=== PATIENT | female | born 1935 | race Caucasian/White ===

== ENCOUNTER 2020-06-28 07:35 | Inpatient (IN) | payer MEDICARE, OTHER, SELFPAY ==
[2020-06-28] VITALS (14 sets, daily range): BP systolic 111–183; BP diastolic 68–131; PULSE 78–120; RESP 18–20; TEMP 36.8–37.4; O2SAT 92–98; BMI 27.1
[2020-06-28] MEDS: Morphine Sulfate 2 MG/ML CARTRIDGE IVPUSH ×2 (08:32→09:39)
[2020-06-28 08:38] LABS: Basophils Absolute Auto 0.1 X10*3/uL (0.0-0.2); Basophils Percent Auto 0.5 % (0-2); Eosinophils Absolute Auto 0.1 X10*3/uL (0.0-0.4); Eosinophils Percent Auto 0.7 % (0-4); Hemoglobin 13.9 g/dl (12.0-16.0); Imm Gran Pct Auto 0.8 % (0.0-0.4); Lymphocytes Absolute Auto 1.3 X10*3/uL (1.2-4.9); Lymphocytes Percent Auto 10.6 % (20-40); MANUAL DIFF FLAG NO; Mean Corpuscular HGB Conc 33.9 g/dl (31.0-35.0); Mean Corpuscular Hemoglobin 31.7 pg (27.0-33.0); Mean Corpuscular Volume 93.4 fL (80-98); Monocytes Percent Auto 8.2 % (2-11); Neutrophils Absolute Auto 9.4 X10*3/uL (2.0-8.3); Neutrophils Percent Auto 79.2 % (45-73); Platelet Count 192 X10*3/uL (160-400); Red Blood Count 4.39 X10*6/uL (4.20-5.50); Red Cell Distribution Width 12.8 % (11.0-16.0); White Blood Count 11.9 X10*3/uL (4.8-10.8)
--- NOTE | 2020-06-28 08:47 | ED.ABDPAIN ---
HPI - Abdominal Pain General Chief Complaint: Abdominal Pain Stated Complaint: abd pain Time Seen by Provider: 06/28/20 08:09 Source: patient and EMS Mode of arrival: EMS Limitations: no limitations History of Present Illness HPI narrative: 85 y/o female with history of COPD, asthma, DM, diverticulitis, UTI's, CAD with unstable angina, hx hip fracutre, s/p cholecystectomy, s/p hysterectomy who presents with acute onset of right sided abdominal pain and flank pain that started when she woke up this morning. It is sharp pain that radiates throughout her right side. She is nauseated but has not vomited. She denies fever, chills, diarrhea, sick contacts, urinary symptoms. She called EMS and was given Zofran en route with good effect. She states the pain went away briefly but is now back. MD elicited complaint: abdominal pain and flank pain Pertinent past history: diverticulitis and past UTI Onset (ago): hour(s) (2) Pain Consistency: intermittent Location: RUQ, RLQ and R flank Severity: moderate Quality: sharp Radiation: R flank Migration to: no migration Exacerbating factors: nothing Relieving factors: nothing Associated symptoms: nausea Treatments prior to arrival: other (zofran ) Related Data Home Medications Medication Instructions Recorded Confirmed hydrocodone-acetaminophen 1 tab PO Q6H PRN 06/28/20 06/28/20 lisinopril 40 mg PO DAILY 06/28/20 06/28/20 metformin 250 mg PO DAILY 06/28/20 06/28/20 multivitamin 1 tab PO DAILY 06/28/20 06/28/20 omega [id number]-fish oil [Fish Oil] 1 cap PO DAILY 06/28/20 06/28/20 omeprazole 20 mg PO DAILY 06/28/20 06/28/20 raloxifene 60 mg PO DAILY 06/28/20 06/28/20 rosuvastatin 5 mg PO BEDTIME 06/28/20 06/28/20 sotalol 80 mg PO BID 06/28/20 06/28/20 Allergies Allergy/AdvReac Type Severity Reaction Status Date / Time azithromycin [From ZITHROMAX] Allergy Unknown THROAT RASH Verified 06/28/20 11:47 levofloxacin [From LEVAQUIN] Allergy Unknown UNKNOWN Verified 06/28/20 11:47 meperidine [Demerol] Allergy Unknown Palpitation Verified 06/28/20 11:47 s niacin [NIACIN] Allergy Unknown HIVES Verified 06/28/20 11:47 oxycodone [OXYCODONE] Allergy Unknown UNKNOWN Verified 06/28/20 11:47 tramadol [TRAMADOL] Allergy Unknown INCREASED Verified 06/28/20 11:47 BLOOD PRESSURE, NAUSEA atorvastatin [From LIPITOR] AdvReac Intermediate ELEVATED Verified 06/28/20 11:47 LFT'S AND MUSCLE ACHES ondansetron AdvReac Unknown PALPITATION Verified 06/28/20 11:47 [From ZOFRAN ( S HYDROCHLORIDE)] BALSAMIC VINEGAR Allergy Severe ANAPHYLAXIS Uncoded 03/11/20 14:43 RED WINE VINEGAR Allergy Unknown UNKNOWN Uncoded 03/11/20 14:43 From DEMEROL AdvReac Severe NAUSEA VOM Uncoded 03/11/20 14:43 DROP IN BP Review of Systems Review of Systems Constitutional: No Fever, No Chills ENT/Mouth: No sore throat, No Rhinorrhea, No Swallowing Difficulty Eyes: No Eye Pain, No Swelling, No Redness Cardiovascular: No Chest Pain, No SOB, No Orthopnea, No Edema Respiratory: No Cough, No Sputum, No Wheezing, No dyspnea Gastrointestinal: + Nausea, No Vomiting, No Diarrhea, + abdominal Pain, No Hematochezia, No Melena Genitourinary: No Dysuria, No Urinary Frequency, No Hematuria Musculoskeletal: No joint pain, No Myalgias Skin: No Skin Lesions, No rash Neuro: No Weakness, No Numbness, No Dizziness, No Headache Heme/Lymph: No Bruising, No Lymphadenopathy Endocrine: No Polyuria, No Polydipsia Physical Exam Vital Signs: Vital Signs: Last Vital Signs Temp 99.4 F 06/28/20 11:48 Pulse 113 H 06/28/20 12:00 Resp 18 06/28/20 12:00 BP 154/91 H 06/28/20 12:00 Pulse Ox 98 06/28/20 12:00 Body Mass Index 27.1 Appearance: Alert. Oriented X3. No acute distress. Eyes: Pupils equal, round and reactive to light. ENT: Pharynx normal. Neck: Normal inspection. Neck supple. CVS: Normal heart rate and rhythm. Pulses normal. Respiratory: No respiratory distress. Breath sounds normal. Abdomen: Soft with right sided tenderness, right flank and CVA tenderness. No ecchymosis on flank. +BS Skin: Skin warm and dry. Normal skin color. Normal skin turgor. No rashes. Extremities: No lower extremity edema. Neuro: Oriented X 3. No motor deficit. No sensory deficit. Course Course Course Narrative: 85 y/o female presenting with acute onset of right sided flank and abd pain associated with nausea. Hx CAD, hx diverticulitis. Will get labs and r/o ACS (low suspicion), and CT scan to assess for diverticulitis. She is s/p cholecyectomy. Doubt retained stone given location of pain wrappiing around her flank. Given zofran en route with improvement in nausea, will give low dose morphine now and monitor closely. Reevaluation(s) Reevaluation #1: Received call from Dr. Catherine re: CT scan showing large perinephric hematoma on the right and also early diverticulitis changes. Ordered for rocephin/flagyl, hx multiple antibioti allergies. Patient adamantly denies any recent trauma, no recent procedures. She is not on anticoagulation. She continues to have significant pain after 2 doses of morphine. Will give dose of Dilaudid now. Surgery has been paged. Reevaluation #2: Spoke with Dr. Cabrales who reviewed the imaging - he recommended Urology consult, no surgical intervention. Dr. Burrows paged at 10:55: Reevaluation #3: Spoke with Dr. Burrows from Urology who also reviewed the imaging. He recommended pain control, monitoring of H/H and renal function. If renal function declines she may require stent placement. Recommended repeat imaging in 6 weeks if no other complications. Spoke with daughter and provided update. All questions were answered. Given patient's continued pain despite 3 doses of IV narcotics, will speak with hospitalist re:admission. Hospitalist to review case. Admit request placed. MDM - Abdominal Pain Differential Diagnosis Differential diagnosis: Likely abdominal pain, acute appendicitis, bowel perforation, calculus of kidney, constipation, diverticulitis, gastroenteritis, gastritis, mesenteric ischemia, pancreatitis, peptic ulcer disease, renal colic and small bowel obstruction Medical Records Attestation: I reviewed the patient's medical records. Lab Data Attestation: I reviewed the patient's lab results. Result diagrams: 06/28/20 08:30 06/28/20 08:30 Labs: Lab Results 06/28/20 06/28/20 06/28/20 Range/Units 08:30 08:30 08:30 WBC 11.9 H (4.8-10.8) X10*3/uL RBC 4.39 (4.20-5.50) X10*6/uL Hgb 13.9 (12.0-16.0) g/dl Hct 41.0 (37-47) % MCV 93.4 (80-98) fL MCH 31.7 (27.0-33.0) pg MCHC 33.9 (31.0-35.0) g/dl RDW 12.8 (11.0-16.0) % Plt Count 192 (160-400) X10*3/uL MPV 10.0 (9.4-12.3) fL Immature Gran % (Auto) 0.8 H (0.0-0.4) % Neut % (Auto) 79.2 H (45-73) % Lymph % (Auto) 10.6 L (20-40) % [place] % (Auto) 8.2 (2-11) % Eos % (Auto) 0.7 (0-4) % Baso % (Auto) 0.5 (0-2) % Lymph # (Auto) 1.3 (1.2-4.9) X10*3/uL [place] # (Auto) 1.0 (0.1-1.2) X10*3/uL Eos # (Auto) 0.1 (0.0-0.4) X10*3/uL Baso # (Auto) 0.1 (0.0-0.2) X10*3/uL Abs Immat Gran (auto) 0.10 H (0.00-0.03) X10*3/uL Absolute Neuts (auto) 9.4 H (2.0-8.3) X10*3/uL Absolute Nucleated RBC 0.000 (0.0-0.012) X10*3/uL Nucleated RBC % (auto) 0.0 (0.0-0.2) /100WBC PT 13.6 H (10.8-13.0) SEC INR 1.1 (0.9-1.1) APTT 27.5 (24.1-38.0) SEC Hold Blue Top SEE NOTE Sodium 137 (135-145) mmol/L Potassium 4.0 (3.3-5.1) mmol/l Chloride 105 (96-108) mmol/L Carbon Dioxide 23 (22-29) mmol/L Anion Gap 13 (12-20) BUN 9 (9-16) mg/dL Creatinine 0.81 (0.5-1.4) mg/dL Estim Creat Clear Calc 40.0 Estimated GFR > 60 Random Glucose 199 H (60-115) mg/dL Lactic Acid (0.5-2.0) mmol/L Calcium 8.2 L (8.4-10.2) mg/dL Magnesium 1.8 (1.6-2.6) mg/dL Total Bilirubin 1.7 H (0.0-1.0) mg/dL Direct Bilirubin 0.6 H (0.0-0.5) mg/dL AST 13 (5-31) U/L ALT 9 (0-31) U/L Alkaline Phosphatase 61 (39-117) U/L Troponin I High Sens (<3.5-17.0) ng/L Total Protein 6.3 L (6.5-8.0) g/dL Albumin 3.7 (3.5-5.0) g/dL Lipase 9 (8-78) U/L Urine Color Urine Appearance Urine pH (5.0-8.0) Ur Specific [place] (1.005-1.025) Urine Protein (NEG-TRACE) MG/DL Urine Glucose (UA) (NEG) MG/DL Urine Ketones (NEG) MG/DL Urine Blood (NEG) Urine Nitrite (NEG) Ur Leukocyte Esterase (NEG) Urine RBC (0) /HPF Urine WBC (0-4) /HPF Ur Squamous Epith Cells /LPF Ur Renal Epithelial Cell /LPF Urine Bacteria /LPF Granular Casts /LPF Urine Mucus /LPF 06/28/20 06/28/20 06/28/20 Range/Units 08:30 08:30 10:46 WBC (4.8-10.8) X10*3/uL RBC (4.20-5.50) X10*6/uL Hgb (12.0-16.0) g/dl Hct (37-47) % MCV (80-98) fL MCH (27.0-33.0) pg MCHC (31.0-35.0) g/dl RDW (11.0-16.0) % Plt Count (160-400) X10*3/uL MPV (9.4-12.3) fL Immature Gran % (Auto) (0.0-0.4) % Neut % (Auto) (45-73) % Lymph % (Auto) (20-40) % [place] % (Auto) (2-11) % Eos % (Auto) (0-4) % Baso % (Auto) (0-2) % Lymph # (Auto) (1.2-4.9) X10*3/uL [place] # (Auto) (0.1-1.2) X10*3/uL Eos # (Auto) (0.0-0.4) X10*3/uL Baso # (Auto) (0.0-0.2) X10*3/uL Abs Immat Gran (auto) (0.00-0.03) X10*3/uL Absolute Neuts (auto) (2.0-8.3) X10*3/uL Absolute Nucleated RBC (0.0-0.012) X10*3/uL Nucleated RBC % (auto) (0.0-0.2) /100WBC PT (10.8-13.0) SEC INR (0.9-1.1) APTT (24.1-38.0) SEC Hold Blue Top Sodium (135-145) mmol/L Potassium (3.3-5.1) mmol/l Chloride (96-108) mmol/L Carbon Dioxide (22-29) mmol/L Anion Gap (12-20) BUN (9-16) mg/dL Creatinine (0.5-1.4) mg/dL Estim Creat Clear Calc Estimated GFR Random Glucose (60-115) mg/dL Lactic Acid 1.3 (0.5-2.0) mmol/L Calcium (8.4-10.2) mg/dL Magnesium (1.6-2.6) mg/dL Total Bilirubin (0.0-1.0) mg/dL Direct Bilirubin (0.0-0.5) mg/dL AST (5-31) U/L ALT (0-31) U/L Alkaline Phosphatase (39-117) U/L Troponin I High Sens 4.2 (<3.5-17.0) ng/L Total Protein (6.5-8.0) g/dL Albumin (3.5-5.0) g/dL Lipase (8-78) U/L Urine Color STRAW Urine Appearance HAZY Urine pH 7.5 (5.0-8.0) Ur Specific [place] 1.010 (1.005-1.025) Urine Protein 1+ H (NEG-TRACE) MG/DL Urine Glucose (UA) NEG (NEG) MG/DL Urine Ketones NEG (NEG) MG/DL Urine Blood 2+ H (NEG) Urine Nitrite NEG (NEG) Ur Leukocyte Esterase NEG (NEG) Urine RBC 15-29 H (0) /HPF Urine WBC 1-4 (0-4) /HPF Ur Squamous Epith Cells 2+ /LPF Ur Renal Epithelial Cell 1+ /LPF Urine Bacteria NONE /LPF Granular Casts 1-4 /LPF Urine Mucus 2+ /LPF ECG Data Attestation: I personally reviewed and interpreted this ECG as follows: ECG interpretation date: 06/28/20 ECG interpretation time: 09:15 Interpretation: normal sinus rhythm, , left axis deviation, HR 87 bpm, normal MS interval, no ST elevation or ischemic changes. Discharge Plan Discharge Clinical Impression: Perinephric hematoma Patient Disposition: Admitted As Inpatient [facility] Past Medical History Attestation statement: The following information was validated with the patient. Medical History (Updated 06/28/20 @ 13:01 by BLANE Monreal) Arthritis Asthma CAD (coronary artery disease) Diabetes Diverticulitis High cholesterol Hypertension Surgical History (Updated 06/28/20 @ 07:49 by Billie Head) H/O: hysterectomy History of appendectomy History of cholecystectomy Social History Social History Alcohol intake: current Alcohol intake frequency: holidays/special occasions only Smoking Status: Never smoker Use of substances other than those prescribed or required for medical reasons: No Advance Directives: No Advance Directives Information Provided: No
--- NOTE | 2020-06-28 08:52 | CT_ITS ---
EXAMINATION: CT ABDOMEN AND PELVIS WITH CONTRAST CLINICAL INFORMATION: Right-sided abdominal pain with history of diverticulitis. COMPARISON: CT abdomen and pelvis 02/06/2018 TECHNIQUE: Multidetector volumetric images were obtained from the superior aspect of the liver through the pubic symphysis following administration 85 mL of Omnipaque 350 intravenous contrast. Sagittal and coronal reformatted images were obtained on the technologist's workstation. Oral contrast: No This CT examination was performed using dose optimization techniques as appropriate, variously including the following: *Automated exposure control *Adjustment of mA and/or kV according to patient size (this includes techniques or standardized protocols for targeted exams where dose is matched to indication/reason for exam; i.e. extremities or head) *Use of iterative reconstruction technique DLP: 600 mGy-cm FINDINGS: LUNG BASES: There is a platelike atelectasis in the right middle lobe and both lung bases. The heart size is normal. There is nonspecific nodular thickening of left minor fissure axial image 3/5. There are coronary artery calcifications present. LIVER, GALLBLADDER, AND BILIARY TREE: The liver is normal in size, shape, and attenuation. There is mild intrahepatic ductal dilatation and mild prominence of CBD measuring 1.1 cm on axial image 27/3. It is stable. The gallbladder is not visualized PANCREAS: There is minimal free fluid in the mralon hepatis. There is atrophy of the pancreas with peripancreatic fat preserved. SPLEEN: Unremarkable. ADRENAL GLANDS: Unremarkable. KIDNEYS AND URETERS: There is a large right hematoma compressing the right kidney. Also visualized is a right pararenal haziness and fluid collection extending into the marlon hepatis region and to the midline above the IVC. IVC is compromised from the surrounding hemorrhage. There are multiple left bilateral renal cysts. Bilateral radiopaque renal calculi without hydronephrosis seen. BLADDER: Unremarkable. GASTROINTESTINAL TRACT: Is diffuse sigmoid wall thickening with scattered diverticuli seen throughout the sigmoid and rest of the colon. No pericolic fat stranding seen. No bowel obstruction. There is scattered stool seen in the colon. The small bowel loops are normal caliber. The stomach is nondistended with a soft tissue density seen in the fundus question polyp or mass. It measures 2.6 x 2.3 cm on axial image 14/3. ABDOMINAL WALL: There is a small supraumbilical hernia containing fat. LYMPH NODES: The left internal iliac 2.4 x 2.1 cm lesion likely lymph node along the left pelvic wall. No free fluid. There are scattered phleboliths in the left pelvis. VASCULAR: Is atherosclerotic calcification of abdominal aorta. PELVIC VISCERA: There is no free fluid or free air. OSSEOUS STRUCTURES: There is loss of L4 vertebral height of indeterminate age. Mild spur endplate deformities of L5, L3 vertebra are noted. There is old compression fractures with cement augmentation L2, L1, T12 and T11 vertebra. There is a right hip nail and intramedullary femoral jess. CT/CT abdomen pelvis w con IMPRESSION: Large right perinephric hematoma and right pararenal hematoma extending into the marlon hepatis. Mild compromise of the right kidney parenchyma. Bilateral renal cysts, bilateral nonobstructive radiopaque calculi without hydronephrosis. Sigmoid and descending colon diverticulosis with mild diffuse sigmoid wall thickening similar to previous study. Also visualized is an abnormal left internal iliac lymph node these findings were present on the previous study 02/06/2018. Dilated intrahepatic ducts and mild prominence of CBD likely expected findings if patient is postcholecystectomy. The gallbladder is not seen however. Mild compromise IVC with surrounding pararenal/retroperitoneal hemorrhage. Results were called to DIOMEDES ARGUELLES by phone at 10:01 AM
--- NOTE | 2020-06-28 08:53 | ECG_ITS ---
Test Reason : RIGHT SIDE PAIN Blood Pressure : / mmHG Vent. Rate : 087 BPM Atrial Rate : 087 BPM P-R Int : 138 ms QRS Dur : 076 ms QT Int : 380 ms P-R-T Axes : -02 -40 051 degrees QTc Int : 457 ms Normal sinus rhythm Left axis deviation Minimal voltage criteria for LVH, may be normal variant Abnormal ECG When compared with ECG of 23-DEC-2018 07:43, No significant change was found Referred By: Heather Carl Electronically Signed By:Arnulfo Lunsford
[2020-06-28 08:58] LABS: Lactic Acid 1.3 mmol/L (0.5-2.0)
[2020-06-28 09:05] LABS: Alanine Aminotransferase 9 U/L (0-31); Albumin Level 3.7 g/dL (3.5-5.0); Alkaline Phosphatase 61 U/L (39-117); Anion Gap 13 (12-20); Aspartate Amino Transferase 13 U/L (5-31); Bilirubin Direct 0.6 mg/dL (0.0-0.5); Bilirubin Total 1.7 mg/dL (0.0-1.0); Blood Urea Nitrogen 9 mg/dL (9-16); Calcium 8.2 mg/dL (8.4-10.2); Carbon Dioxide 23 mmol/L (22-29); Chloride 105 mmol/L (96-108); Estimated Glomerular Filt Rate > 60; Glucose Random 199 mg/dL (60-115); Lipase 9 U/L (8-78); Magnesium 1.8 mg/dL (1.6-2.6); Sodium 137 mmol/L (135-145); Total Protein 6.3 g/dL (6.5-8.0)
--- NOTE | 2020-06-28 09:34 | PC.NURSE ---
Pulled morphine to medicate patient and CT scan had taken patient for her test. Will medicate as soon as patient returns to room.
[2020-06-28 09:44] LABS: Troponin-I High Sensitivity 4.2 ng/L (<3.5-17.0)
--- NOTE | 2020-06-28 09:48 | PC.NURSE ---
PT RETURNED FROM CT, MEDICATED WITH MORPHINE. REPOS FOR COMFORT. OK TO SHARE INFO WITH DAUGHTER PER PATIENT
[2020-06-28] MEDS: iohexoL 350 MG/ML 100 ML INFUS..BTL IV (09:51)
[2020-06-28 10:16] LABS: INTERNATIONAL NORM RATIO 1.1 (0.9-1.1); Prothrombin Time 13.6 SEC (10.8-13.0)
[2020-06-28 10:18] LABS: Partial Thromboplastin Time 27.5 SEC (24.1-38.0)
[2020-06-28] MEDS: cefTRIAXone sodium 1 GM in 0.9 % Sodium Chloride 50 ML IV (10:36)
[2020-06-28 10:54] LABS: Glucose Urine UA NEG (NEG); Leukocyte Esterase Urine NEG (NEG); Nitrite Urine NEG (NEG); PH 7.5 (5.0-8.0); Urine Blood 2+ (NEG); Urine Ketones NEG (NEG); Urine Protein 1+ MG/DL (NEG-TRACE)
--- NOTE | 2020-06-28 10:54 | PC.NURSE ---
ASSISTED PATIENT UP TO THE COMMODE. NO OBVIOUS BRUISING OR SWELLING NOTED TO RIGHT FLANK/ABD AREA. URINE SPEC OBTAINED. PT BACK TO BED AND REPOSITIONED. PT UPDATED ON PLAN OF CARE.
[2020-06-28 10:55] LABS: Appearance Urine HAZY; Color Urine STRAW
[2020-06-28 11:08] LABS: Mucus Urine 2+ /LPF; Renal Epithelial Cells Urine 1+ /LPF; Squamous Epithelial Cell Urine 2+ /LPF
[2020-06-28] MEDS: metroNIDAZOLE/NS 500 MG/100 ML PIGGYBACK 100 MG IV (11:48)
[2020-06-28] MEDS: HYDROmorphone HCl 0.5 MG/0.5 ML SYRINGE 0.25 MG IVPUSH ×2 (12:16→13:50)
--- NOTE | 2020-06-28 12:18 | PC.NURSE ---
Late entry for 1130.Pt was up to commode with one assist. HR increased to 130's but settled into 1teens after back in bed. pt is aware of plan for admission and pain control/ this rn requesting additional pain meds. PA speaking with family on phone for update.
[2020-06-28] MEDS: ondansetron HCL 4 MG/2 ML VIAL IVPUSH (13:51)
[2020-06-28 14:34] LABS: COVID-19 Test Negative (Negative)
--- NOTE | 2020-06-28 15:02 | P.HPHOSP_ITS ---
History of Present Illness Date of Service: 06/28/20 <Iva Warner NP - Last Filed: 06/28/20 16:29> Chief Complaint: Flank pain <Iva Warner NP - Last Filed: 06/28/20 16:29> 85 year old women presenting with right flank pain that started that started this morning. She denied recent trauma, nausea, vomiting, diarrhea, fever, chills, urinary difficulties. She reported a history of renal cysts. Abd CT showed large right perinephric hematoma and right pararenal hematoma with mild compromise of the right kidney parenchyma. Bilateral renal cysts, bilateral nonobstructive radiopaque calculi without hydronephrosis. She had no fever, or leukocytosis. Normal HH. All other labs within acceptable limits. She will be admitted for further management of perinephric hematoma. <Iva Warner NP - Last Filed: 06/28/20 16:29> Review of Systems Review of Systems: Denies any recent fever chills or decrease in appetite respiratory denies any shortness of breath coverage production cardiovascular is adjustment of any PND or edema gastrointestinal denies any dysphagia abdominal pain nausea vomiting or diarrhea genitourinary denies any dysuria frequency or hematuria musculoskeletal Flank pain neuropsych denies any weakness or seizures all other systems reviewed are negative <Iva Warner NP - Last Filed: 06/28/20 16:29> [facility] Medical History: Medical History Arthritis Asthma CAD (coronary artery disease) COPD (chronic obstructive pulmonary disease) Diabetes Diverticulitis DJD (degenerative joint disease) GERD (gastroesophageal reflux disease) High cholesterol Hypertension <Iva Warner NP - Last Filed: 06/28/20 16:29> Family History: Family History Father Heart disease <Iva Warner NP - Last Filed: 06/28/20 16:29> Pertinent family history: No cardiac disease <Iva Warner NP - Last Filed: 06/28/20 16:29> Surgical History: Surgical History H/O hernia repair H/O kyphoplasty H/O lumpectomy H/O: hysterectomy History of ankle surgery History of appendectomy History of arthroscopy History of bunionectomy History of cholecystectomy History of endometrial ablation <Iva Warner NP - Last Filed: 06/28/20 16:29> Social History: Social History Household Members: None Alcohol intake: current Alcohol intake frequency: holidays/special occasions only Smoking Status: Never smoker service: No Current occupational status: retired <Iva Warner NP - Last Filed: 06/28/20 16:29> Meds Allergies/Adverse reactions: Allergies Allergy/AdvReac Type Severity Reaction Status Date / Time azithromycin [From ZITHROMAX] Allergy Unknown THROAT RASH Verified 06/28/20 11:47 levofloxacin [From LEVAQUIN] Allergy Unknown UNKNOWN Verified 06/28/20 11:47 meperidine [Demerol] Allergy Unknown Palpitation Verified 06/28/20 11:47 s niacin [NIACIN] Allergy Unknown HIVES Verified 06/28/20 11:47 oxycodone [OXYCODONE] Allergy Unknown UNKNOWN Verified 06/28/20 11:47 tramadol [TRAMADOL] Allergy Unknown INCREASED Verified 06/28/20 11:47 BLOOD PRESSURE, NAUSEA atorvastatin [From LIPITOR] AdvReac Intermediate ELEVATED Verified 06/28/20 11:47 LFT'S AND MUSCLE ACHES ondansetron AdvReac Unknown PALPITATION Verified 06/28/20 11:47 [From ZOFRAN ( S HYDROCHLORIDE)] BALSAMIC VINEGAR Allergy Severe ANAPHYLAXIS Uncoded 03/11/20 14:43 RED WINE VINEGAR Allergy Unknown UNKNOWN Uncoded 03/11/20 14:43 From DEMEROL AdvReac Severe NAUSEA VOM Uncoded 03/11/20 14:43 DROP IN BP <Iva Warner NP - Last Filed: 06/28/20 16:29> Home medications: Home Medications Medication Instructions Recorded Confirmed Type hydrocodone-acetaminophen 1 tab PO Q6H PRN 06/28/20 06/28/20 History lisinopril 40 mg PO DAILY 06/28/20 06/28/20 History metformin 250 mg PO DAILY 06/28/20 06/28/20 History multivitamin 1 tab PO DAILY 06/28/20 06/28/20 History omega 5-xbq-qoe-fish oil [Fish Oil] 1 cap PO DAILY 06/28/20 06/28/20 History omeprazole 20 mg PO DAILY 06/28/20 06/28/20 History raloxifene 60 mg PO DAILY 06/28/20 06/28/20 History rosuvastatin 5 mg PO BEDTIME 06/28/20 06/28/20 History sotalol 80 mg PO BID 06/28/20 06/28/20 History <Iva Warner NP - Last Filed: 06/28/20 16:29> Physical Exam Vital Signs and Narrative: Vital Signs: Last Vital Signs Temp 99.4 F 06/28/20 11:48 Pulse 120 H 06/28/20 13:31 Resp 18 06/28/20 13:31 BP 137/80 06/28/20 13:31 Pulse Ox 97 06/28/20 13:31 Body Mass Index 27.1 <Iva Warner NP - Last Filed: 06/28/20 16:29> Appearing in no acute distress head is normocephalic atraumatic eyes pupils are PERRLA sclera is anicteric mouth throat mucous membranes are intact and moist lung sounds are clear to auscultation heart regular rate rhythm, clear S1, S2 positive bowel sounds, mild abd tenderness to right mid abd near flank neuro patient is alert x3, no focal deficits <Iva Warner NP - Last Filed: 06/28/20 16:29> Results Labs CBC and Chem 7: : 06/30/20 05:28 06/29/20 11:37 <Iva Warner NP - Last Filed: 06/28/20 16:29> Labs: Laboratory Results - last 24 hr 06/28/20 06/28/20 06/28/20 08:30 08:30 08:30 MCV 93.4 MCH 31.7 MCHC 33.9 RDW 12.8 Plt Count 192 MPV 10.0 Immature Gran % (Auto) 0.8 H Neut % (Auto) 79.2 H Lymph % (Auto) 10.6 L [place] % (Auto) 8.2 Eos % (Auto) 0.7 Baso % (Auto) 0.5 Lymph # (Auto) 1.3 [place] # (Auto) 1.0 Eos # (Auto) 0.1 Baso # (Auto) 0.1 Abs Immat Gran (auto) 0.10 H Absolute Neuts (auto) 9.4 H Absolute Nucleated RBC 0.000 Nucleated RBC % (auto) 0.0 PT 13.6 H INR 1.1 APTT 27.5 Hold Blue Top SEE NOTE Anion Gap 13 Estim Creat Clear Calc 40.0 Estimated GFR > 60 Random Glucose 199 H Lactic Acid Calcium 8.2 L Magnesium 1.8 Total Bilirubin 1.7 H Direct Bilirubin 0.6 H AST 13 ALT 9 Alkaline Phosphatase 61 Troponin I High Sens Total Protein 6.3 L Albumin 3.7 Lipase 9 Urine Color Urine Appearance Urine pH Ur Specific [place] Urine Protein Urine Glucose (UA) Urine Ketones Urine Blood Urine Nitrite Ur Leukocyte Esterase Urine RBC Urine WBC Ur Squamous Epith Cells Ur Renal Epithelial Cell Urine Bacteria Granular Casts Urine Mucus COVID-19 (ALYSSA) COVID-19 [facility] 06/28/20 06/28/20 06/28/20 08:30 08:30 10:46 MCV MCH MCHC RDW Plt Count MPV Immature Gran % (Auto) Neut % (Auto) Lymph % (Auto) [place] % (Auto) Eos % (Auto) Baso % (Auto) Lymph # (Auto) [place] # (Auto) Eos # (Auto) Baso # (Auto) Abs Immat Gran (auto) Absolute Neuts (auto) Absolute Nucleated RBC Nucleated RBC % (auto) PT INR APTT Hold Blue Top Anion Gap Estim Creat Clear Calc Estimated GFR Random Glucose Lactic Acid 1.3 Calcium Magnesium Total Bilirubin Direct Bilirubin AST ALT Alkaline Phosphatase Troponin I High Sens 4.2 Total Protein Albumin Lipase Urine Color STRAW Urine Appearance HAZY Urine pH 7.5 Ur Specific [place] 1.010 Urine Protein 1+ H Urine Glucose (UA) NEG Urine Ketones NEG Urine Blood 2+ H Urine Nitrite NEG Ur Leukocyte Esterase NEG Urine RBC 15-29 H Urine WBC 1-4 Ur Squamous Epith Cells 2+ Ur Renal Epithelial Cell 1+ Urine Bacteria NONE Granular Casts 1-4 Urine Mucus 2+ COVID-19 (ALYSSA) COVID-19 [facility] 06/28/20 13:30 MCV MCH MCHC RDW Plt Count MPV Immature Gran % (Auto) Neut % (Auto) Lymph % (Auto) [place] % (Auto) Eos % (Auto) Baso % (Auto) Lymph # (Auto) [place] # (Auto) Eos # (Auto) Baso # (Auto) Abs Immat Gran (auto) Absolute Neuts (auto) Absolute Nucleated RBC Nucleated RBC % (auto) PT INR APTT Hold Blue Top Anion Gap Estim Creat Clear Calc Estimated GFR Random Glucose Lactic Acid Calcium Magnesium Total Bilirubin Direct Bilirubin AST ALT Alkaline Phosphatase Troponin I High Sens Total Protein Albumin Lipase Urine Color Urine Appearance Urine pH Ur Specific [place] Urine Protein Urine Glucose (UA) Urine Ketones Urine Blood Urine Nitrite Ur Leukocyte Esterase Urine RBC Urine WBC Ur Squamous Epith Cells Ur Renal Epithelial Cell Urine Bacteria Granular Casts Urine Mucus COVID-19 (ALYSSA) Negative COVID-19 Clin Com See Note <Iva Warner NP - Last Filed: 06/28/20 16:29> Imaging Radiologist's Impressions: Impressions Abdomen/Pelvis CT 06/28/20 08:52 IMPRESSION: Large right perinephric hematoma and right pararenal hematoma extending into the marlon hepatis. Mild compromise of the right kidney parenchyma. Bilateral renal cysts, bilateral nonobstructive radiopaque calculi without hydronephrosis. Sigmoid and descending colon diverticulosis with mild diffuse sigmoid wall thickening similar to previous study. Also visualized is an abnormal left internal iliac lymph node these findings were present on the previous study 02/06/2018. Dilated intrahepatic ducts and mild prominence of CBD likely expected findings if patient is postcholecystectomy. The gallbladder is not seen however. Mild compromise IVC with surrounding pararenal/retroperitoneal hemorrhage. Results were called to ER Heather ARGUELLES by phone at 10:01 AM <Iva Warner NP - Last Filed: 06/28/20 16:29> Assessment and Plan (1) Perinephric hematoma: Problem details: Has H/O renal cysts Idiopathic bleed No compromise in renal function No drop in hematocrit Hemodynamics stable Urology to see and follow Supportive care <Iva Warner NP - Last Filed: 06/28/20 16:29> Status: Acute <Iva Warner NP - Last Filed: 06/28/20 16:29> 85 year old women admitted with perinephric hematoma to right kidney. No recent trauma or illness. Perinephric hematoma. Stable on CT scan. Hemodynamically stable, normal HH. Follow up CT tommorrow, urology to follow. Diabetes. Sliding scale, ADA diet. Hypertension. Continue Lisinopril. HLD. Continue statin. GERD. PPI. DVT prophylaxis with mechanical compression boots. Discussed with Dr. Aguilar Full code <Iva Warner NP - Last Filed: 06/28/20 16:29>
[2020-06-28] MEDS: HYDROcodone Bit/Acetam 5/325 TABLET 1 TAB PO ×2 (15:43→22:54)
--- NOTE | 2020-06-28 15:43 | PC.NURSE ---
given po meds for persistent pain. pt has been up to commode mult times but grimaces with pain. awaits bed assignment.
[2020-06-28 17:24] LABS: Glucose, Whole Blood 193 mg/dL (60-115)
[2020-06-28] MEDS: 0.9 % Sodium Chloride Flush 3 ML SYRINGE IVFLUSH (17:52)
--- NOTE | 2020-06-28 18:40 | PC.NURSE ---
update to daughter, Katt Rendon [phone]
[2020-06-28] MEDS: Sotalol HCL 80 MG TABLET PO (20:35)
[2020-06-28 20:42] LABS: Glucose, Whole Blood 218 mg/dL (60-115)
[2020-06-28] MEDS: Insulin Lispro 100 UNIT/ML 3 ML VIAL SUBCUT (20:42)
--- NOTE | 2020-06-28 20:43 | PC.NURSE ---
repeatedly offered pain meds but declining. pain with palpation only according to patient. may take someting stronger before sleep
--- NOTE | 2020-06-28 21:14 | PC.NURSE ---
hospital bed provided.
[2020-06-29] VITALS (12 sets, daily range): BP systolic 106–178; BP diastolic 59–82; PULSE 77–113; RESP 16–20; TEMP 36.4–37.2; O2SAT 90–96
--- NOTE | 2020-06-29 01:35 | PC.NURSE ---
patient was assisted to bedside commode by this pct.
--- NOTE | 2020-06-29 01:36 | PC.NURSE ---
patient was assisted to bedside commode by this pct.
[2020-06-29 01:42] LABS: Glucose, Whole Blood 138 mg/dL (60-115)
--- NOTE | 2020-06-29 08:00 | CT_ITS ---
EXAMINATION: CT ABDOMEN AND PELVIS WITHOUT CONTRAST CLINICAL INFORMATION: Follow-up perinephric hematoma COMPARISON: CT abdomen and pelvis 06/28/2020 TECHNIQUE: Multidetector volumetric imaging was performed from the superior aspect of the liver through the pubic symphysis. Sagittal and coronal reformatted images were obtained on the technologist's workstation. This CT examination was performed using dose optimization techniques as appropriate, variously including the following: *Automated exposure control *Adjustment of mA and/or kV according to patient size (this includes techniques or standardized protocols for targeted exams where dose is matched to indication/reason for exam; i.e. extremities or head) *Use of iterative reconstruction technique DLP: 600 mGy-cm FINDINGS: LUNG BASES: There is a right basilar and right middle lobe platelike atelectasis. Heart size is normal. There are coronary artery catheterizations present. LIVER, GALLBLADDER, AND BILIARY TREE: The liver is normal in size, shape, and attenuation. No focal hepatic lesion or biliary ductal dilatation is present. The gallbladder is not visualized. PANCREAS: Unremarkable. SPLEEN: Unremarkable. ADRENAL GLANDS: Unremarkable. KIDNEYS AND URETERS: The left kidney is normal size, shape and position. There is a punctate hyper density likely excreted contrast in the lower pole calyx severity radiopaque calculi. No caliectasis or hydronephrosis. Again visualized is right perinephric hematoma minimally improved in size from previous study. There is residual intravenous contrast seen in the cortex likely secondary to cortical injury. There is no hydronephrosis. Bilateral nephric stranding centimeter in the right side is stable. There is bilateral renal cysts as noted on the previous study. BLADDER: Unremarkable. GASTROINTESTINAL TRACT: There is moderate stool seen throughout the colon without any significant distention. Diffuse mural thickening involving the sigmoid colon and distal descending colon with diverticuli is stable. No pericolic fat stranding seen. The small bowel loops are normal caliber. Retroperitoneal fluid/hematoma extending into the marlon hepatis region has improved. ABDOMINAL WALL: There is a small supraumbilical hernia containing fat. LYMPH NODES: Normal. VASCULAR: There are atherosclerotic calcifications in abdominal aorta without aneurysmal dilatation. PELVIC VISCERA: Unremarkable. OSSEOUS STRUCTURES: There are compression deformities involving L5, L4, T10, T9 vertebrae with cement augmentation from T12 to L3 vertebra for old compression fractures. CT/CT abdomen pelvis wo con IMPRESSION: Interval slight improvement in the right perinephric hematoma and para renal hematoma extending into the marlon hepatis region. Right perinephric stranding is unchanged. There is residual retained right cortical contrast from exam performed 24 hours questioning right renal function. Diffuse sigmoid and descending colon diverticulosis and mild diffuse sigmoid wall thickening similar to previous study. No pericolic fat stranding seen. No change in small supraumbilical hernia containing fat.
--- NOTE | 2020-06-29 08:48 | PM.CNNEP ---
History of Present Illness Reason for Consult Consult date: 06/29/20 Reason for consult: Flank Pain with perinephric hematoma Chief Complaint Chief complaint: perinephric hematoma History of Present Illness Narrative: 85 year old women presenting with right flank pain that started that started yesterday morning. She denied recent trauma, nausea, vomiting, diarrhea, fever, chills, urinary difficulties. She reported a history of renal cysts. Abd CT showed large right perinephric hematoma and right pararenal hematoma with mild compromise of the right kidney parenchyma. Bilateral renal cysts, bilateral nonobstructive radiopaque calculi without hydronephrosis. She had no fever, or leukocytosis. All other labs within acceptable limits. She will be admitted for further management of perinephric hematoma Review of Systems Review of Systems Yes all other systems are reviewed and are negative [facility] Past Medical History Medical History Arthritis Asthma CAD (coronary artery disease) COPD (chronic obstructive pulmonary disease) Diabetes Diverticulitis DJD (degenerative joint disease) GERD (gastroesophageal reflux disease) High cholesterol Hypertension Family History Family History Father Heart disease Surgical History Surgical History H/O hernia repair H/O kyphoplasty H/O lumpectomy H/O: hysterectomy History of ankle surgery History of appendectomy History of arthroscopy History of bunionectomy History of cholecystectomy History of endometrial ablation Social History Social History Household Members: None Do you presently have visiting nurse or other home services: No Alcohol intake: current Alcohol intake frequency: holidays/special occasions only Smoking Status: Never smoker Use of substances other than those prescribed or required for medical reasons: Unknown Advance Directives: No Advance Directives Information Provided: No Do you have thoughts of harming others: None Do you have a plan to hurt others: No Plan Recently lost weight without trying: Unsure service: No Current occupational status: retired Meds Allergies Allergy/AdvReac Type Severity Reaction Status Date / Time azithromycin [From ZITHROMAX] Allergy Unknown THROAT RASH Verified 06/28/20 11:47 levofloxacin [From LEVAQUIN] Allergy Unknown UNKNOWN Verified 06/28/20 11:47 meperidine [Demerol] Allergy Unknown Palpitation Verified 06/28/20 11:47 s niacin [NIACIN] Allergy Unknown HIVES Verified 06/28/20 11:47 oxycodone [OXYCODONE] Allergy Unknown UNKNOWN Verified 06/28/20 11:47 tramadol [TRAMADOL] Allergy Unknown INCREASED Verified 06/28/20 11:47 BLOOD PRESSURE, NAUSEA atorvastatin [From LIPITOR] AdvReac Intermediate ELEVATED Verified 06/28/20 11:47 LFT'S AND MUSCLE ACHES ondansetron AdvReac Unknown PALPITATION Verified 06/28/20 11:47 [From ZOFRAN ( S HYDROCHLORIDE)] BALSAMIC VINEGAR Allergy Severe ANAPHYLAXIS Uncoded 03/11/20 14:43 RED WINE VINEGAR Allergy Unknown UNKNOWN Uncoded 03/11/20 14:43 From DEMEROL AdvReac Severe NAUSEA VOM Uncoded 03/11/20 14:43 DROP IN BP Home Medications Medication Instructions Recorded Confirmed Type hydrocodone-acetaminophen 1 tab PO Q6H PRN 06/28/20 06/28/20 History lisinopril 40 mg PO DAILY 06/28/20 06/28/20 History metformin 250 mg PO DAILY 06/28/20 06/28/20 History multivitamin 1 tab PO DAILY 06/28/20 06/28/20 History omega 6-dvi-maa-fish oil [Fish Oil] 1 cap PO DAILY 06/28/20 06/28/20 History omeprazole 20 mg PO DAILY 06/28/20 06/28/20 History raloxifene 60 mg PO DAILY 06/28/20 06/28/20 History rosuvastatin 5 mg PO BEDTIME 06/28/20 06/28/20 History sotalol 80 mg PO BID 06/28/20 06/28/20 History Physical Exam Vital Signs: Last Vital Signs Temp 99.0 F 06/29/20 07:49 Pulse 94 06/29/20 07:49 Resp 16 06/29/20 07:49 BP 178/82 H 06/29/20 07:49 Pulse Ox 94 06/29/20 07:49 Body Mass Index 27.1 Const General: alert HENMT Head: Yes normal to inspection Neck Neck: Yes supple Resp Auscultation: diminished lung sounds Cardio Rate: regular rate GI Palpation (GI): Soft to palpation Skin General skin exam: no rashes or lesions noted Neuro General: moves all extremities Results Lab Results Result Diagrams: 06/29/20 10:29 06/29/20 11:37 Lab results: Chemistry 06/28/20 08:30 Sodium 137 Potassium 4.0 Carbon Dioxide 23 BUN 9 Creatinine 0.81 Calcium 8.2 L Hematology 06/28/20 08:30 WBC 11.9 H Hgb 13.9 Plt Count 192 Urinalysis 06/28/20 10:46 Urine Color STRAW Urine Appearance HAZY Urine pH 7.5 Ur Specific [place] 1.010 Urine Protein 1+ H Urine Glucose (UA) NEG Urine Ketones NEG Urine Blood 2+ H Urine Nitrite NEG Ur Leukocyte Esterase NEG Urine RBC 15-29 H Urine WBC 1-4 Ur Squamous Epith Cells 2+ Assessment and Plan (1) Perinephric hematoma: Problem details: Has H/O renal cysts Idiopathic bleed No compromise in renal function No drop in hematocrit Hemodynamics stable Urology to see and follow Supportive care Status: Acute
--- NOTE | 2020-06-29 08:52 | PC.NURSE ---
[facility] called twice at ext [phone] for report, phone ran without an answer. will call back again.
--- NOTE | 2020-06-29 09:24 | PC.NURSE ---
nurse to nurse given to pieter (rn), pt aware of plan of care for admission to hosp.
[2020-06-29 10:19] LABS: Glucose, Whole Blood 144 mg/dL (60-115)
[2020-06-29] MEDS: Sotalol HCL 80 MG TABLET PO ×2 (10:20→21:41)
[2020-06-29] MEDS: Omeprazole 20 MG CAPSULE.DR PO (10:20)
[2020-06-29] MEDS: lisinopriL 40 MG TABLET PO (10:20)
[2020-06-29] MEDS: Multivitamin TABLET 1 TAB PO (10:20)
[2020-06-29] MEDS: 0.9 % Sodium Chloride Flush 3 ML SYRINGE IVFLUSH ×3 (10:24→21:40)
[2020-06-29 10:43] LABS: Basophils Absolute Auto 0.1 X10*3/uL (0.0-0.2); Basophils Percent Auto 0.3 % (0-2); Eosinophils Percent Auto 0.1 % (0-4); Hematocrit 35.9 % (37-47); Imm Gran Pct Auto 0.5 % (0.0-0.4); Lymphocytes Absolute Auto 1.9 X10*3/uL (1.2-4.9); Lymphocytes Percent Auto 10.4 % (20-40); MANUAL DIFF FLAG SCAN; Mean Corpuscular HGB Conc 33.4 g/dl (31.0-35.0); Mean Corpuscular Hemoglobin 31.8 pg (27.0-33.0); Mean Corpuscular Volume 95.2 fL (80-98); Mean Platelet Volume 10.7 fL (9.4-12.3); Monocytes Absolute Auto 1.9 X10*3/uL (0.1-1.2); Monocytes Percent Auto 10.1 % (2-11); Neutrophils Absolute Auto 14.5 X10*3/uL (2.0-8.3); Neutrophils Percent Auto 78.6 % (45-73); Platelet Count 171 X10*3/uL (160-400); Red Blood Count 3.77 X10*6/uL (4.20-5.50); Red Cell Distribution Width 13.5 % (11.0-16.0); SCAN SMEAR FLAG 1; White Blood Count 18.4 X10*3/uL (4.8-10.8)
[2020-06-29 11:25] LABS: SLIDE REVIEW VERIFIED
[2020-06-29 11:48] LABS: Glucose, Whole Blood 135 mg/dL (60-115)
--- NOTE | 2020-06-29 12:24 | HO.PM.IMPN ---
Subjective Subjective Date of Service: 06/29/20 Interval History: Seen in follow up for perinphric hematoma that is spntaneous. Pain is better in thr right flank region Review of Systems no fever some pain in the right flank area Physical Exam Vital Signs: Vital Signs: Last Vital Signs Temp 98.8 F 06/29/20 08:00 Pulse 85 06/29/20 10:20 Resp 20 06/29/20 08:00 BP 136/68 06/29/20 10:20 Pulse Ox 94 06/29/20 08:00 Body Mass Index 27.1 General: AO X 3, no acute distress Resp: CTA bilateral CVS: S1,S2,RRR GI: +BS, NT, no distention/ no right or left flank echymosis, slignt tenderness of right Skin: No rash Neuro: motor grossly intact Psych: appropriate affect Objective Data Current Medications Generic Name Dose Route Start Last Admin Trade Name Freq PRN Reason Stop Dose Admin Acetaminophen 650 mg 06/28/20 14:10 Acetaminophen 325 Mg Tablet PO Q6H PRN Pain, Mild (Pain Scale 1-3) Hydrocodone Bitart/Acetaminophen 1 tab 06/28/20 14:10 06/28/20 22:54 Hydrocodone Bit/Acetam 5/325 Tablet PO 1 tab Q6H PRN Administration Pain Insulin Human Lispro 0 unit 06/28/20 16:30 06/29/20 12:19 Insulin Lispro 100 Unit/Ml 3 Ml Vial SUBCUT Not Given QIDACHS [facility] Protocol Lisinopril 40 mg 06/29/20 09:00 06/29/20 10:20 Lisinopril 40 Mg Tablet PO 40 mg DAILY THEO Administration Protocol Morphine Sulfate 2 mg 06/28/20 14:10 Morphine Sulfate 2 Mg/Ml Cartridge IVPUSH Q4H PRN Pain, Mild (Pain Scale 1-3) Multivitamins/Vitamin C 1 tab 06/29/20 09:00 06/29/20 10:20 Multivitamin Tablet PO 1 tab DAILY THEO Administration Non-Formulary Medication 5 mg 06/28/20 21:00 Rosuvastatin PO BEDTIME THEO Omeprazole 20 mg 06/29/20 09:00 06/29/20 10:20 Omeprazole 20 Mg Capsule.Dr PO 20 mg DAILY THEO Administration Ondansetron HCl 4 mg 06/28/20 14:10 Ondansetron Hcl 4 Mg/2 Ml Vial IVPUSH Q8H PRN Nausea and Vomiting Pharmacy Consult 1 each 06/28/20 12:10 Consult Rx Perform Med Rec MISCELLANE ONCE PRN Consult order Sodium Chloride 3 ml 06/28/20 16:00 06/29/20 10:24 0.9 % Sodium Chloride Flush 3 Ml Syringe IVFLUSH 3 ml QSHIFT THEO Administration Sotalol HCl 80 mg 06/28/20 21:00 06/29/20 10:20 Sotalol Hcl 80 Mg Tablet PO 80 mg BID THEO Administration Labs CBC & Chem 7: 06/29/20 10:29 06/28/20 08:30 Microbiology Microbiology Results: Microbiology 06/28/20 09:47 Blood - Venous Blood Culture - Preliminary No growth after 24 hours. 06/28/20 08:30 Blood - Venous Blood Culture - Preliminary No growth after 24 hours. Assessment and Plan (1) Perinephric hematoma: Status: Acute Assessment and Plan: 85 year old women admitted with perinephric hematoma to right kidney. No recent trauma or illness. Perinephric hematoma probably from ruptured cyst. Stable on CT scan. Hemodynamically stable, no singificant shift in Hgb. repeat CT today shows slight improvment. Nephro recommend outpatient follow up urology to follow. Diabetes. Sliding scale, ADA diet. Hypertension. Continue Lisinopril. Leukocytosis--no evidence of infection, so likely reactive HLD. Continue statin. GERD. PPI. DVT prophylaxis with mechanical compression boots.
[2020-06-29 12:25] LABS: Anion Gap 16 (12-20); Blood Urea Nitrogen 22 mg/dL (9-16); Calcium 8.3 mg/dL (8.4-10.2); Carbon Dioxide 22 mmol/L (22-29); Chloride 106 mmol/L (96-108); Creatinine Clr Calc Pharmacy 27.9; Estimated Glomerular Filt Rate 45; Glucose Random 130 mg/dL (60-115); Potassium 4.2 mmol/l (3.3-5.1); Sodium 140 mmol/L (135-145)
--- NOTE | 2020-06-29 13:00 | MHC.CM.PN ---
CM was unable to reach Patient by phone (Covid precautions); CM spoke with Daughter/HCP/Katt@ [phone]. Patient lives alone in a house and she always uses a walker. Family assists with all meals, grocery shopping, etc. The goal for dc is home, no services and CM has initiated and will follow for dc planning. IMM addressed with Katt and the original will be mailed out certified mail to her and a copy has been placed on the chart. PCP is Dr. Ananda Vines.
--- NOTE | 2020-06-29 13:13 | PM.UROCN ---
History of Present Illness Consult details Consult date: 06/29/20 Narrative: Asked to see patient regarding right-sided hematoma to kidney 85-year-old female No prior history of trauma Not on any anticoagulation Present to ER with right-sided flank pain On imaging found to have hematoma with question of cyst rupture around right kidney Normal creatinine No evidence of urinary obstruction Discussed with patient Typically would follow in 3 months with follow-up CT imaging and resolution PMFSH Past Medical History Medical History (Updated 06/28/20 @ 15:28 by Iva Warner NP) Arthritis Asthma CAD (coronary artery disease) COPD (chronic obstructive pulmonary disease) Diabetes Diverticulitis DJD (degenerative joint disease) GERD (gastroesophageal reflux disease) High cholesterol Hypertension Family History Family History (Updated 06/28/20 @ 15:31 by Iva Warner NP) Father Heart disease Surgical History Surgical History (Updated 06/28/20 @ 15:31 by Iva Warner NP) H/O hernia repair H/O kyphoplasty H/O lumpectomy H/O: hysterectomy History of ankle surgery History of appendectomy History of arthroscopy History of bunionectomy History of cholecystectomy History of endometrial ablation Social History Social History (Updated 06/28/20 @ 15:32 by Iva Warner NP) Household Members: None Alcohol intake: current Alcohol intake frequency: holidays/special occasions only Smoking Status: Never smoker Use of substances other than those prescribed or required for medical reasons: No Advance Directives: No Advance Directives Information Provided: No service: No Current occupational status: retired Meds Allergies Allergy/AdvReac Type Severity Reaction Status Date / Time azithromycin [From ZITHROMAX] Allergy Unknown THROAT RASH Verified 06/28/20 11:47 levofloxacin [From LEVAQUIN] Allergy Unknown UNKNOWN Verified 06/28/20 11:47 meperidine [Demerol] Allergy Unknown Palpitation Verified 06/28/20 11:47 s niacin [NIACIN] Allergy Unknown HIVES Verified 06/28/20 11:47 oxycodone [OXYCODONE] Allergy Unknown UNKNOWN Verified 06/28/20 11:47 tramadol [TRAMADOL] Allergy Unknown INCREASED Verified 06/28/20 11:47 BLOOD PRESSURE, NAUSEA atorvastatin [From LIPITOR] AdvReac Intermediate ELEVATED Verified 06/28/20 11:47 LFT'S AND MUSCLE ACHES ondansetron AdvReac Unknown PALPITATION Verified 06/28/20 11:47 [From ZOFRAN ( S HYDROCHLORIDE)] BALSAMIC VINEGAR Allergy Severe ANAPHYLAXIS Uncoded 03/11/20 14:43 RED WINE VINEGAR Allergy Unknown UNKNOWN Uncoded 03/11/20 14:43 From DEMEROL AdvReac Severe NAUSEA VOM Uncoded 03/11/20 14:43 DROP IN BP Home Medications Medication Instructions Recorded Confirmed Type hydrocodone-acetaminophen 1 tab PO Q6H PRN 06/28/20 06/28/20 History lisinopril 40 mg PO DAILY 06/28/20 06/28/20 History metformin 250 mg PO DAILY 06/28/20 06/28/20 History multivitamin 1 tab PO DAILY 06/28/20 06/28/20 History omega 3-nac-hxg-fish oil [Fish Oil] 1 cap PO DAILY 06/28/20 06/28/20 History omeprazole 20 mg PO DAILY 06/28/20 06/28/20 History raloxifene 60 mg PO DAILY 06/28/20 06/28/20 History rosuvastatin 5 mg PO BEDTIME 06/28/20 06/28/20 History sotalol 80 mg PO BID 06/28/20 06/28/20 History Physical Exam Vital Signs: Vital Signs: Last Vital Signs Temp 98.8 F 06/29/20 08:00 Pulse 85 06/29/20 10:20 Resp 20 06/29/20 08:00 BP 136/68 06/29/20 10:20 Pulse Ox 94 06/29/20 08:00 Body Mass Index 27.1 Const: General: cooperative, healthy appearing, comfortable and no acute distress Nutritional Appearance: average body habitus Orientation/consciousness: oriented to person, oriented to place and oriented to time Eyes: General: appearance normal, both eyes and all related structures Chest: Chest palpation & inspection: normal inspection of the chest Resp: Effort & Inspection: normal respiratory effort Cardio: Rate: regular rate GI: Inspection: Yes normal to inspection Skin: Hair: normal Neuro: General: oriented to person, oriented to place and oriented to time Extrem: General: Yes normal to inspection Results Labs Result diagrams: 06/29/20 10:29 06/29/20 11:37 Labs: Abnormal lab results 06/28/20 06/28/20 06/29/20 Range/Units 17:21 20:38 01:31 WBC (4.8-10.8) X10*3/uL RBC (4.20-5.50) X10*6/uL Hct (37-47) % Immature Gran % (Auto) (0.0-0.4) % Neut % (Auto) (45-73) % Lymph % (Auto) (20-40) % [place] # (Auto) (0.1-1.2) X10*3/uL Abs Immat Gran (auto) (0.00-0.03) X10*3/uL Absolute Neuts (auto) (2.0-8.3) X10*3/uL BUN (9-16) mg/dL POC Glucose 193 H 218 H 138 H (60-115) mg/dL Random Glucose (60-115) mg/dL Calcium (8.4-10.2) mg/dL 06/29/20 06/29/20 06/29/20 Range/Units 10:13 10:29 11:37 WBC 18.4 H (4.8-10.8) X10*3/uL RBC 3.77 L (4.20-5.50) X10*6/uL Hct 35.9 L (37-47) % Immature Gran % (Auto) 0.5 H (0.0-0.4) % Neut % (Auto) 78.6 H (45-73) % Lymph % (Auto) 10.4 L (20-40) % [place] # (Auto) 1.9 H (0.1-1.2) X10*3/uL Abs Immat Gran (auto) 0.10 H (0.00-0.03) X10*3/uL Absolute Neuts (auto) 14.5 H (2.0-8.3) X10*3/uL BUN 22 H D (9-16) mg/dL POC Glucose 144 H (60-115) mg/dL Random Glucose 130 H (60-115) mg/dL Calcium 8.3 L (8.4-10.2) mg/dL 06/29/20 Range/Units 11:42 WBC (4.8-10.8) X10*3/uL RBC (4.20-5.50) X10*6/uL Hct (37-47) % Immature Gran % (Auto) (0.0-0.4) % Neut % (Auto) (45-73) % Lymph % (Auto) (20-40) % [place] # (Auto) (0.1-1.2) X10*3/uL Abs Immat Gran (auto) (0.00-0.03) X10*3/uL Absolute Neuts (auto) (2.0-8.3) X10*3/uL BUN (9-16) mg/dL POC Glucose 135 H (60-115) mg/dL Random Glucose (60-115) mg/dL Calcium (8.4-10.2) mg/dL Short CBC 06/29/20 Range/Units 10:29 WBC 18.4 H (4.8-10.8) X10*3/uL Hgb 12.0 (12.0-16.0) g/dl Hct 35.9 L (37-47) % Plt Count 171 (160-400) X10*3/uL BMP 06/29/20 06/29/20 10:29 11:37 Sodium Cancelled 140 Potassium Cancelled 4.2 Chloride Cancelled 106 Carbon Dioxide Cancelled 22 BUN Cancelled 22 H D Creatinine Cancelled 1.16 Calcium Cancelled 8.3 L Urine 06/28/20 Range/Units 10:46 Urine Color STRAW Urine Appearance HAZY Urine pH 7.5 (5.0-8.0) Ur Specific [place] 1.010 (1.005-1.025) Urine Protein 1+ H (NEG-TRACE) MG/DL Urine Glucose (UA) NEG (NEG) MG/DL All other labs normal. KIDNEYS AND URETERS: The left kidney is normal size, shape and position. There is a punctate hyper density likely excreted contrast in the lower pole calyx severity radiopaque calculi. No caliectasis or hydronephrosis. Again visualized is right perinephric hematoma minimally improved in size from previous study. There is residual intravenous contrast seen in the cortex likely secondary to cortical injury. There is no hydronephrosis. Bilateral nephric stranding centimeter in the right side is stable. There is bilateral renal cysts as noted on the previous study. Assessment and Plan (1) Perinephric hematoma: Status: Acute Management of perinephric hematoma is conservative Suggest pain medication and repeat imaging in 12 weeks for resolution Discussed with patient
[2020-06-29 16:45] LABS: Glucose, Whole Blood 135 mg/dL (60-115)
--- NOTE | 2020-06-29 18:53 | PC.NURSE ---
Addendum entered by Merlyn Martínez RN 06/29/20 18:55: Pt uses walker at baseline, rolling walker brought into room, pt ambulated with steady gait and walker. Original Note: Pt confused at times about situation. Reoriented. Pt had tolerable pain throughout day, slept throughout day, pt states she feel well rested. Updated daughter, daughter brought in med. Make sure sent home
[2020-06-29 20:56] LABS: Glucose, Whole Blood 156 mg/dL (60-115)
[2020-06-29] MEDS: Insulin Lispro 100 UNIT/ML 3 ML VIAL SUBCUT (21:40)
[2020-06-29] MEDS: HYDROcodone Bit/Acetam 5/325 TABLET 1 TAB PO (21:40)
[2020-06-30] VITALS (7 sets, daily range): BP systolic 124–173; BP diastolic 58–87; PULSE 72–85; RESP 16–20; TEMP 36.7–37.2; O2SAT 93–98
[2020-06-30 06:49] LABS: Hematocrit 32.9 % (37-47); Hemoglobin 10.9 g/dl (12.0-16.0); Mean Corpuscular HGB Conc 33.1 g/dl (31.0-35.0); Mean Corpuscular Hemoglobin 31.9 pg (27.0-33.0); Mean Corpuscular Volume 96.2 fL (80-98); Mean Platelet Volume 10.9 fL (9.4-12.3); Platelet Count 164 X10*3/uL (160-400); Red Blood Count 3.42 X10*6/uL (4.20-5.50); Red Cell Distribution Width 13.4 % (11.0-16.0); White Blood Count 12.5 X10*3/uL (4.8-10.8)
[2020-06-30 08:05] LABS: Glucose, Whole Blood 142 mg/dL (60-115)
[2020-06-30] MEDS: lisinopriL 40 MG TABLET PO (09:01)
[2020-06-30] MEDS: Sotalol HCL 80 MG TABLET PO ×2 (09:01→21:24)
[2020-06-30] MEDS: 0.9 % Sodium Chloride Flush 3 ML SYRINGE IVFLUSH ×3 (09:01→21:41)
[2020-06-30] MEDS: Multivitamin TABLET 1 TAB PO (09:01)
[2020-06-30] MEDS: Omeprazole 20 MG CAPSULE.DR PO (09:01)
[2020-06-30 11:44] LABS: Glucose, Whole Blood 148 mg/dL (60-115)
--- NOTE | 2020-06-30 12:53 | HO.PM.IMPN ---
Subjective Subjective Date of Service: 06/30/20 Interval History: Seen in follow up for perinphric hematoma that is spntaneous. Pain is better in thr right flank region Review of Systems no fever some pain in the right flank area Physical Exam Vital Signs: Vital Signs: Last Vital Signs Temp 98.1 F 06/30/20 11:19 Pulse 77 06/30/20 11:19 Resp 18 06/30/20 11:19 BP 173/79 H 06/30/20 11:19 Pulse Ox 98 06/30/20 11:19 Body Mass Index 27.1 General: AO X 3, no acute distress Resp: CTA bilateral CVS: S1,S2,RRR GI: +BS, NT, no distention/ no right or left flank echymosis, slignt tenderness of right flank Skin: No rash Neuro: motor grossly intact Psych: appropriate affect Objective Data Current Medications Generic Name Dose Route Start Last Admin Trade Name Freq PRN Reason Stop Dose Admin Acetaminophen 650 mg 06/28/20 14:10 Acetaminophen 325 Mg Tablet PO Q6H PRN Pain, Mild (Pain Scale 1-3) Hydrocodone Bitart/Acetaminophen 1 tab 06/28/20 14:10 06/29/20 21:40 Hydrocodone Bit/Acetam 5/325 Tablet PO 1 tab Q6H PRN Administration Pain Insulin Human Lispro 0 unit 06/28/20 16:30 06/30/20 12:52 Insulin Lispro 100 Unit/Ml 3 Ml Vial SUBCUT Not Given QIDACHS [facility] Protocol Lisinopril 40 mg 06/29/20 09:00 06/30/20 09:01 Lisinopril 40 Mg Tablet PO 40 mg DAILY THEO Administration Protocol Morphine Sulfate 2 mg 06/28/20 14:10 Morphine Sulfate 2 Mg/Ml Cartridge IVPUSH Q4H PRN Pain, Mild (Pain Scale 1-3) Multivitamins/Vitamin C 1 tab 06/29/20 09:00 06/30/20 09:01 Multivitamin Tablet PO 1 tab DAILY THEO Administration Non-Formulary Medication 5 mg 06/28/20 21:00 06/29/20 21:40 Rosuvastatin PO 5 mg BEDTIME THEO Administration Omeprazole 20 mg 06/29/20 09:00 06/30/20 09:01 Omeprazole 20 Mg Capsule.Dr PO 20 mg DAILY THEO Administration Ondansetron HCl 4 mg 06/28/20 14:10 Ondansetron Hcl 4 Mg/2 Ml Vial IVPUSH Q8H PRN Nausea and Vomiting Pharmacy Consult 1 each 06/28/20 12:10 Consult Rx Perform Med Rec MISCELLANE ONCE PRN Consult order Sodium Chloride 3 ml 06/28/20 16:00 06/30/20 09:01 0.9 % Sodium Chloride Flush 3 Ml Syringe IVFLUSH 3 ml QSHIFT THEO Administration Sotalol HCl 80 mg 06/28/20 21:00 06/30/20 09:01 Sotalol Hcl 80 Mg Tablet PO 80 mg BID THEO Administration Labs CBC & Chem 7: 06/30/20 05:28 06/29/20 11:37 Microbiology Microbiology Results: Microbiology 06/28/20 09:47 Blood - Venous Blood Culture - Preliminary No growth after 48 hours. 06/28/20 08:30 Blood - Venous Blood Culture - Preliminary No growth after 48 hours. Assessment and Plan (1) Perinephric hematoma: Status: Acute Assessment and Plan: 85 year old women admitted with perinephric hematoma to right kidney. No recent trauma or illness. Perinephric hematoma probably from ruptured cyst. Stable on CT scan. Hemodynamically stable, some decrease in hemoglobin since yesterday continue following hemoglobin and renal function. Repeat scan in the morning. Diabetes. Sliding scale, ADA diet. Hypertension. Continue Lisinopril. Leukocytosis--no evidence of infection, so likely reactive, coming down HLD. Continue statin. GERD. PPI. DVT prophylaxis with mechanical compression boots.
--- NOTE | 2020-06-30 13:24 | MHC.CM.PN ---
Goal for dc is home no services. Per documentation, MD following hemoglobin and renal function with repeat scan tomorrow. CM will continue to follow for dc planning and possible need to adjust the dc plan.
[2020-06-30 13:44] LABS: Anion Gap 12 (12-20); Blood Urea Nitrogen 22 mg/dL (9-16); Calcium 7.8 mg/dL (8.4-10.2); Carbon Dioxide 27 mmol/L (22-29); Chloride 107 mmol/L (96-108); Creatinine Clr Calc Pharmacy 32.6; Estimated Glomerular Filt Rate 54; Glucose Random 129 mg/dL (60-115); Potassium 3.8 mmol/l (3.3-5.1); Sodium 142 mmol/L (135-145)
[2020-06-30] MEDS: HYDROcodone Bit/Acetam 5/325 TABLET 1 TAB PO ×2 (14:53→21:28)
[2020-06-30 16:06] LABS: Glucose, Whole Blood 131 mg/dL (60-115)
[2020-06-30 20:47] LABS: Glucose, Whole Blood 145 mg/dL (60-115)
[2020-06-30] MEDS: Insulin Lispro 100 UNIT/ML 3 ML VIAL SUBCUT (21:24)
[2020-07-01 03:29] VITALS: BP 151/83; PULSE 74; RESP 16; TEMP 36.8; O2SAT 92
[2020-07-01 07:19] LABS: Glucose, Whole Blood 149 mg/dL (60-115)
[2020-07-01 07:28] VITALS: BP 144/77; PULSE 66; RESP 18; TEMP 36.3; O2SAT 93
[2020-07-01] MEDS: Omeprazole 20 MG CAPSULE.DR PO (08:18)
[2020-07-01] MEDS: Multivitamin TABLET 1 TAB PO (08:18)
[2020-07-01] MEDS: lisinopriL 40 MG TABLET PO (08:18)
[2020-07-01] MEDS: 0.9 % Sodium Chloride Flush 3 ML SYRINGE IVFLUSH (08:18)
[2020-07-01] MEDS: Sotalol HCL 80 MG TABLET PO (08:18)
--- NOTE | 2020-07-01 10:41 | P.PNNP_ITS ---
Subjective Subjective Date of Service: 07/01/20 Interval history: Seen in follow up for perinephric hematoma that is spontaneous. Pain is better in the right flank region Physical Exam Vital Signs: Vital Signs: Last Vital Signs Temp 97.4 F 07/01/20 07:28 Pulse 66 07/01/20 07:28 Resp 18 07/01/20 07:28 BP 144/77 H 07/01/20 07:28 Pulse Ox 93 07/01/20 07:28 Body Mass Index 27.1 Const: General: no acute distress Orientation/consciousness: patient oriented x3 Neck: Neck: Yes supple Resp: Auscultation: diminished lung sounds Cardio: Rate: regular rate GI: Palpation (GI): Soft to palpation Neuro: General: patient oriented x3 Objective Data Labs CBC & Chem 7: 06/30/20 05:28 06/30/20 Unknown Labs: Laboratory Results - last 24 hr 06/30/20 06/30/20 06/30/20 11:27 16:02 20:43 Sodium Potassium Chloride Carbon Dioxide Anion Gap BUN Creatinine Estim Creat Clear Calc Estimated GFR POC Glucose 148 H 131 H 145 H Random Glucose Calcium 06/30/20 07/01/20 Unknown 07:15 Sodium 142 Potassium 3.8 Chloride 107 Carbon Dioxide 27 Anion Gap 12 BUN 22 H Creatinine 0.99 Estim Creat Clear Calc 32.6 Estimated GFR 54 POC Glucose 149 H Random Glucose 129 H Calcium 7.8 L D Microbiology Microbiology Results: Microbiology 06/28/20 09:47 Blood - Venous Blood Culture - Preliminary No growth after 48 hours. 06/28/20 08:30 Blood - Venous Blood Culture - Preliminary No growth after 48 hours. Assessment & Plan Assessment and plan (1) Perinephric hematoma: Problem details: Spontaneous bleed; Renal functions stable Urology seen- will need follow up as outpt BP stable. Continue supportive care Shall sign off follow up for now; Pls call with any questions if any Status: Acute Time Spent With Patient Time: Total time spent is greater than 50% in coordination of care (as lula gonzalez) at patient's floor/unit and/or counseling patient:
[2020-07-01 11:22] VITALS: BP 133/59; PULSE 69; RESP 18; TEMP 36.8; O2SAT 93
[2020-07-01 11:43] LABS: Glucose, Whole Blood 134 mg/dL (60-115)
[2020-07-01 11:50] LABS: Hematocrit 32.9 % (37-47); Hemoglobin 10.9 g/dl (12.0-16.0); Mean Corpuscular HGB Conc 33.1 g/dl (31.0-35.0); Mean Corpuscular Hemoglobin 31.5 pg (27.0-33.0); Mean Corpuscular Volume 95.1 fL (80-98); Mean Platelet Volume 10.3 fL (9.4-12.3); Platelet Count 185 X10*3/uL (160-400); Red Blood Count 3.46 X10*6/uL (4.20-5.50); White Blood Count 9.3 X10*3/uL (4.8-10.8)
[2020-07-01 12:10] LABS: Anion Gap 12 (12-20); Blood Urea Nitrogen 17 mg/dL (9-16); Carbon Dioxide 25 mmol/L (22-29); Chloride 106 mmol/L (96-108); Creatinine Clr Calc Pharmacy 43.2; Estimated Glomerular Filt Rate > 60; Glucose Random 142 mg/dL (60-115); Sodium 139 mmol/L (135-145)
--- NOTE | 2020-07-01 13:09 | P.DS_ITS ---
DS: Providers Provider Date of Service: 07/26/20 Date of admission: 06/28/20 14:10 Primary care physician: Ananda Vines MD Consults: 06/28/20 18:49 Consult to Nephrology Routine Consulting Provider: Gonzales Burrows Reason for consultation: PERINEPHRIC HEMATOMA Has provider been notified: No DS: Diagnosis Discharge Diagnosis (1) Perinephric hematoma: Status: Acute Problem details: Spontaneous bleed; Renal functions stable Urology seen- will need follow up as outpt BP stable. Continue supportive care Shall sign off follow up for now; Pls call with any questions if any DS: Medications Discharge Medications Home Medications: Home Medications Medication Instructions Recorded Confirmed hydrocodone-acetaminophen 1 tab PO Q6H PRN 06/28/20 06/28/20 lisinopril 40 mg PO DAILY 06/28/20 06/28/20 metformin 250 mg PO DAILY 06/28/20 06/28/20 multivitamin 1 tab PO DAILY 06/28/20 06/28/20 omega 0-iwj-cgz-fish oil [Fish Oil] 1 cap PO DAILY 06/28/20 06/28/20 omeprazole 20 mg PO DAILY 06/28/20 06/28/20 raloxifene 60 mg PO DAILY 06/28/20 06/28/20 rosuvastatin 5 mg PO BEDTIME 06/28/20 06/28/20 sotalol 80 mg PO BID 06/28/20 06/28/20 DS: Summary Hospital Course Hospital Course: Flank pain <Iva Warner NP - Last Filed: 06/28/20 16:29> 85 year old women presenting with right flank pain that started that started this morning. She denied recent trauma, nausea, vomiting, diarrhea, fever, chills, urinary difficulties. She reported a history of renal cysts. Abd CT showed large right perinephric hematoma and right pararenal hematoma with mild compromise of the right kidney parenchyma. Bilateral renal cysts, bilateral nonobstructive radiopaque calculi without hydronephrosis. She had no fever, or leukocytosis. Normal HH. All other labs within acceptable limits. She will be admitted for further management of perinephric hematoma. Perinephric hematoma probably from ruptured cyst. Stable on CT scan. Hemodynamically stable, some decrease in hemoglobin on repeat CT. Hemoglobin did decrease the next day but stable the thrid day. Nephrology recommend conservative management. Urologist Dr. Burrows recommend [address] mont[address] up with CT to ensure resolution. To avoid NSAIDs and motring Diabetes. Sliding scale, ADA diet. Hypertension. Continue Lisinopril. Leukocytosis--no evidence of infection, so likely reactive, coming down HLD. Continue statin. GERD. PPI. Time Spent with Patient Time attestation: Total time spent providing and/or coordinating discharge services: Discharge coordination time: Greater than 30 minutes Physical Exam Vital Signs: Vital Signs: Last Vital Signs Temp 98.3 F 07/01/20 11:22 Pulse 69 07/01/20 11:22 Resp 18 07/01/20 11:22 BP 133/59 L 07/01/20 11:22 Pulse Ox 93 07/01/20 11:22 Body Mass Index 27.1 DS: Data Data Completed and Pending Labs on day of discharge: 06/28/20 08:24 Morphine Sulfate 2 mg IVPUSH ONCE ONE 06/28/20 08:30 Basic Metabolic Panel Stat Complete Blood Count Auto Diff Stat Hold Lt Blue - Possible Coag Stat Lactic Acid Stat Lipase Stat Liver Panel Stat Magnesium Stat Partial Thromboplastin Time Stat Prothrombin Time INR Stat Troponin-I High Sensitivity Stat 06/28/20 08:52 CT abdomen pelvis w con Stat 06/28/20 08:53 ECG 12 lead EKG Stat EKG Documentation DIRECTED 06/28/20 09:05 Morphine Sulfate 2 mg IVPUSH ONCE ONE 06/28/20 09:14 Add Laboratory Test Stat 06/28/20 09:50 iohexoL 350 MG/ML [Omnipaque 350 MG/ML] 100 ml IV ONCE ONE 06/28/20 10:12 Add Laboratory Test Stat 06/28/20 10:22 cefTRIAXone sodium [Rocephin] 1 gm 0.9 % Sodium Chloride [Ns] 50 ml IV ONCE metroNIDAZOLE/NS [Flagyl] 500 mg in 100 ml IV ONCE 06/28/20 10:27 cefTRIAXone sodium [Rocephin] 1 gm .ROUTE .STK-MED ONE 06/28/20 12:05 HYDROmorphone HCl [Dilaudid] 0.25 mg IVPUSH ONCE ONE 06/28/20 13:15 HYDROmorphone HCl [Dilaudid] 0.25 mg IVPUSH ONCE ONE ondansetron HCL [Zofran] 4 mg IVPUSH ONCE ONE 06/28/20 13:30 COVID-19 ID NOW (Jeronimo) Stat 06/28/20 14:01 Transfer Order Routine 06/28/20 17:21 Glucose, Whole Blood Routine 06/28/20 20:38 Glucose, Whole Blood Routine 06/29/20 01:31 Glucose, Whole Blood Routine 06/29/20 08:00 CT abdomen pelvis wo con Stat 06/29/20 09:00 raloxifene 60 mg PO DAILY 06/29/20 10:13 Glucose, Whole Blood Routine 06/29/20 10:29 Complete Blood Count Auto Diff DAILY@0600 SLIDE REVIEW Routine 06/29/20 11:37 BMP [Basic Metabolic Panel] Stat 06/29/20 11:42 Glucose, Whole Blood Routine 06/29/20 16:39 Glucose, Whole Blood Routine 06/29/20 20:40 Glucose, Whole Blood Routine 06/30/20 Basic Metabolic Panel Routine 06/30/20 05:28 Complete Blood Count no Diff DAILY@0600 06/30/20 08:02 Glucose, Whole Blood Routine 06/30/20 11:27 Glucose, Whole Blood Routine 06/30/20 16:02 Glucose, Whole Blood Routine 06/30/20 20:43 Glucose, Whole Blood Routine 07/01/20 07:15 Glucose, Whole Blood Routine 07/01/20 11:27 Basic Metabolic Panel Routine Complete Blood Count no Diff Routine 07/01/20 11:40 Glucose, Whole Blood Routine Laboratory Last Values WBC 9.3 X10*3/uL (4.8-10.8) 07/01/20 11:27 RBC 3.46 X10*6/uL (4.20-5.50) L 07/01/20 11:27 Hgb 10.9 g/dl (12.0-16.0) L 07/01/20 11:27 Hct 32.9 % (37-47) L 07/01/20 11:27 MCV 95.1 fL (80-98) 07/01/20 11:27 MCH 31.5 pg (27.0-33.0) 07/01/20 11:27 MCHC 33.1 g/dl (31.0-35.0) 07/01/20 11:27 RDW 13.0 % (11.0-16.0) 07/01/20 11:27 Plt Count 185 X10*3/uL (160-400) 07/01/20 11:27 MPV 10.3 fL (9.4-12.3) 07/01/20 11:27 Immature Gran % (Auto) 0.5 % (0.0-0.4) H 06/29/20 10:29 Neut % (Auto) 78.6 % (45-73) H 06/29/20 10:29 Lymph % (Auto) 10.4 % (20-40) L 06/29/20 10:29 [place] % (Auto) 10.1 % (2-11) 06/29/20 10:29 Eos % (Auto) 0.1 % (0-4) 06/29/20 10:29 Baso % (Auto) 0.3 % (0-2) 06/29/20 10:29 Lymph # (Auto) 1.9 X10*3/uL (1.2-4.9) 06/29/20 10:29 [place] # (Auto) 1.9 X10*3/uL (0.1-1.2) H 06/29/20 10:29 Eos # (Auto) 0.0 X10*3/uL (0.0-0.4) 06/29/20 10:29 Baso # (Auto) 0.1 X10*3/uL (0.0-0.2) 06/29/20 10:29 Abs Immat Gran (auto) 0.10 X10*3/uL (0.00-0.03) H 06/29/20 10:29 Absolute Neuts (auto) 14.5 X10*3/uL (2.0-8.3) H 06/29/20 10:29 Absolute Nucleated RBC 0.000 X10*3/uL (0.0-0.012) 07/01/20 11:27 Nucleated RBC % (auto) 0.0 /100WBC (0.0-0.2) 07/01/20 11:27 Smear Tech's Comments VERIFIED 06/29/20 10:29 PT 13.6 SEC (10.8-13.0) H 06/28/20 08:30 INR 1.1 (0.9-1.1) 06/28/20 08:30 APTT 27.5 SEC (24.1-38.0) 06/28/20 08:30 Hold Blue Top SEE NOTE 06/28/20 08:30 Sodium 139 mmol/L (135-145) 07/01/20 11:27 Potassium 4.0 mmol/l (3.3-5.1) 07/01/20 11:27 Chloride 106 mmol/L (96-108) 07/01/20 11:27 Carbon Dioxide 25 mmol/L (22-29) 07/01/20 11:27 Anion Gap 12 (12-20) 07/01/20 11:27 BUN 17 mg/dL (9-16) H 07/01/20 11:27 Creatinine 0.75 mg/dL (0.5-1.4) 07/01/20 11:27 Estim Creat Clear Calc 43.2 07/01/20 11:27 Estimated GFR > 60 07/01/20 11:27 POC Glucose 134 mg/dL (60-115) H 07/01/20 11:40 Random Glucose 142 mg/dL (60-115) H 07/01/20 11:27 Lactic Acid 1.3 mmol/L (0.5-2.0) 06/28/20 08:30 Calcium 8.0 mg/dL (8.4-10.2) L 07/01/20 11:27 Magnesium 1.8 mg/dL (1.6-2.6) 06/28/20 08:30 Total Bilirubin 1.7 mg/dL (0.0-1.0) H 06/28/20 08:30 Direct Bilirubin 0.6 mg/dL (0.0-0.5) H 06/28/20 08:30 AST 13 U/L (5-31) 06/28/20 08:30 ALT 9 U/L (0-31) 06/28/20 08:30 Alkaline Phosphatase 61 U/L (39-117) 06/28/20 08:30 Troponin I High Sens 4.2 ng/L (<3.5-17.0) 06/28/20 08:30 Total Protein 6.3 g/dL (6.5-8.0) L 06/28/20 08:30 Albumin 3.7 g/dL (3.5-5.0) 06/28/20 08:30 Lipase 9 U/L (8-78) 06/28/20 08:30 Urine Color STRAW 06/28/20 10:46 Urine Appearance HAZY 06/28/20 10:46 Urine pH 7.5 (5.0-8.0) 06/28/20 10:46 Ur Specific [place] 1.010 (1.005-1.025) 06/28/20 10:46 Urine Protein 1+ MG/DL (NEG-TRACE) H 06/28/20 10:46 Urine Glucose (UA) NEG MG/DL (NEG) 06/28/20 10:46 Urine Ketones NEG MG/DL (NEG) 06/28/20 10:46 Urine Blood 2+ (NEG) H 06/28/20 10:46 Urine Nitrite NEG (NEG) 06/28/20 10:46 Ur Leukocyte Esterase NEG (NEG) 06/28/20 10:46 Urine RBC 15-29 /HPF (0) H 06/28/20 10:46 Urine WBC 1-4 /HPF (0-4) 06/28/20 10:46 Ur Squamous Epith Cells 2+ /LPF 06/28/20 10:46 Ur Renal Epithelial Cell 1+ /LPF 06/28/20 10:46 Urine Bacteria NONE /LPF 06/28/20 10:46 Granular Casts 1-4 /LPF 06/28/20 10:46 Urine Mucus 2+ /LPF 06/28/20 10:46 COVID-19 (ALYSSA) Negative (Negative) 06/28/20 13:30 COVID-19 Clin Com See Note 06/28/20 13:30 Preliminary micro results at discharge 06/28/20 09:47 Blood Culture - Preliminary Blood - Venous No growth after 48 hours. 06/28/20 08:30 Blood Culture - Preliminary Blood - Venous No growth after 48 hours. Discharge Plan Discharge Anticipated Discharge Date/Time: 07/01/20 13:03 Patient Disposition: Home Health Service Referrals: [facility] [Outside] Ananda Vines MD [Primary Care Provider] - Discharge Medications: Continued metformin 500 mg tablet 250 mg PO DAILY RF: 0 omeprazole 20 mg capsule,delayed release(DR/EC) 20 mg PO DAILY RF: 0 raloxifene 60 mg tablet 60 mg PO DAILY RF: 0 lisinopril 40 mg tablet 40 mg PO DAILY RF: 0 rosuvastatin 5 mg tablet 5 mg PO BEDTIME RF: 0 hydrocodone-acetaminophen 5-325 mg tablet 1 tab PO Q6H PRN (Reason: Pain) RF: 0 omega 8-wml-rjy-fish oil [Fish Oil] 1,000 mg (120 mg-180 mg) Capsule 1 cap PO DAILY RF: 0 No Action sotalol 80 mg tablet 80 mg PO BID RF: 0 aspirin 81 mg tablet,delayed release (DR/EC) 81 mg PO DAILY RF: 0 ascorbic acid (vitamin C) 500 mg tablet 250 mg PO DAILY RF: 0 cholecalciferol (vitamin D3) 125 mcg (5,000 unit) capsule 125 mcg PO DAILY RF: 0 budesonide-formoterol 160-4.5 mcg/actuation HFA aerosol inhaler 2 puff inhalation BID RF: 0 promethazine 12.5 mg tablet 12.500f25 mg PO QID PRNRF: 0 Fluad Quad 2020-21(65y up)(PF) 60 mcg (15 mcg x 4)/0.5 mL syringe 0.5 ml IM DIRECTED RF: 0 benzonatate 150 mg capsule 150 mg PO BID-TID PRN (Reason: cough) 30 Days Qty: 60 RF: 2 Discharge Orders: Discharge Order (Routine); Ordered 07/01/20 Ordered By: Prabhakar Aguilar Diet: advance to usual diet Activity on Discharge: As tolerated Other Ambulatory Orders: CT abdomen wo con (Routine) Timeframe: 3 Months Facility: [facility] - Location: CT Scan Ordered By: Prabhakar Aguilar Visit Report Forms: Patient Portal Discharge page Care Plan Goals: Full recovery from hematoma (blood collection )around kidney Health Concerns: Pain from hematoma Plan of Treatment: Avoid aspirin and motrin, follow up with your Doctor in a week, call for appointment Discharge Date/Time: 07/01/20 16:15
--- NOTE | 2020-07-01 13:16 | MHC.CM.PN ---
Patient has been medically cleared for dc to home today,with VNA. Patient/family has no preference as to which VNA is used and are agreeable to a referral being made to [facility]. [facility] has been informed of today's dc.Last IMM addressed on 06/29/20.
--- NOTE | 2020-07-01 15:06 | MHC.CM.PN ---
Patient's PCP (Dr. Vines) is not available to see Patients at this time). Covering Dr. is Dr. Christian. has successfully faxed over requested information to Dr. Christian and it has been uploaded into [employer]. [facility] has indicated that they cannot officially accept Patient until Dr. Christian reviews the faxed information and accepts the Patient. NOEL and CM will follow.
== END 2020-07-01 16:15 | disposition home health service (06) | DRG 556 ==
LOC: HO.ED 13:01 → HO.IMC 06-29 07:51
PROVIDERS: Nurse Practitioner Acute Care; Physician Assistant; Admitting Provider Internal Medicine; Emergency Provider Emergency Medicine; Visit Provider Internal Medicine
DX: M79.81 Nontraumatic hematoma of soft tissue (principal); N20.0 Calculus of kidney; N28.1 Cyst of kidney, acquired; E11.9 Type 2 diabetes mellitus without complications; E78.5 Hyperlipidemia, unspecified; D72.829 Elevated white blood cell count, unspecified; K21.9 Gastro-esophageal reflux disease without esophagitis; Z20.828 Contact with and (suspected) exposure to other viral communicable diseases; Z88.0 Allergy status to penicillin; Z88.5 Allergy status to narcotic agent; Z79.899 Other long term (current) drug therapy
CPT/HCPCS: 36415; 74176; 74177; 80048; 80076; 81001; 82947; 83605; 83690; 83735; 84484; 85025; 85027; 85610; 85730; 87040; 87635; 93005; 96365; 96367; 96375; 96376; 97161; 99232; 99285; J0696; J1170; J2270; J2405; Q9967

== ENCOUNTER → 2020-07-13 13:27 | Outpatient (BNVA) | payer MEDICARE, OTHER, SELFPAY | PROVIDERS: Visit Provider Internal Medicine | DX: J44.9 Chronic obstructive pulmonary disease, unspecified (principal); R05 Cough | CPT/HCPCS: Q3014 ==

== ENCOUNTER 2020-08-03 18:31 | Inpatient (IN) | payer MEDICARE, OTHER, SELFPAY ==
--- NOTE | ~2020-08-03 | CT_ITS ---
EXAMINATION: CT CERVICAL SPINE WITHOUT CONTRAST CLINICAL INFORMATION: Patient found on ground. COMPARISON: None available. TECHNIQUE: Multidetector helical imaging of the cervical spine was obtained without intravenous contrast. Multiple axial reformats and coronal/sagittal reconstructions were created the technologist workstation for review. This CT examination was performed using dose optimization techniques as appropriate, variously including the following: *Automated exposure control. *Adjustment of mA and/or kV according to patient size (this includes techniques or standardized protocols for targeted exams where dose is matched to indication/reason for exam; i.e. extremities or head). *Use of iterative reconstruction technique. DLP: 473 mGy-cm FINDINGS: The atlantooccipital and atlantoaxial articulations remain well aligned. Mild reversal the normal cervical lordosis centered on C4. Mild degenerative anterolisthesis of C3 on C4. No evidence of acute fracture or subluxation. Congenital nonunion of the posterior arch of C1. The vertebral body heights are maintained. Advanced degenerative disc disease from C4-C7 with disc-osteophyte formation. There appears to be mild spinal canal stenosis at the level of C5. Multilevel facet and uncovertebral joint arthropathy leads osseous encroachment on the neural foramina from C3-C6. Fusion of the C2-C3 facets. There is no prevertebral soft tissue swelling. There is a 1.9 cm soft tissue lesion within the left parotid gland. The thyroid gland and remaining cervical soft tissues are normal in appearance. Persistent azygos fissure. The lung apices demonstrate no abnormalities. CT/CT cervical spine wo con IMPRESSION: 1. No evidence of acute fracture or traumatic subluxation of the cervical spine. 2. 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 There appears to be at least mild spinal canal stenosis at C4-C5. Moderate to advanced neural foraminal stenoses from C3-C7. 3. There is a 1.9 cm left-sided parotid gland lesion. This can be further characterized with directed ultrasound if clinically indicated.
--- NOTE | ~2020-08-03 | MR_ITS ---
EXAMINATION: BRAIN MRI WITHOUT CONTRAST CLINICAL INFORMATION: Slurred speech. Evaluate for acute stroke. COMPARISON: CT scan of the head 08/03/2020. TECHNIQUE: Multiplanar MR imaging of the brain was performed without contrast. FINDINGS: There are a few small foci of restricted diffusion involving the cortical barber matter of the left inferior parietal lobule. Scattered nonspecific foci of T2 FLAIR signal hyperintensity are also visualized within the periventricular white matter that most likely represent a chronic manifestation of small vessel ischemia. No pathological magnetic susceptibility artifact. Intracranial vascular flow voids are grossly maintained. There is no intracranial mass effect or midline shift. No abnormal extra-axial collection. Lateral and third ventricles are proportionate to the subarachnoid spaces. No hydrocephalus. Midline structures including the cervicomedullary junction are normal. No acute bone marrow signal changes. There is no mastoid or middle ear effusion. A lobulated lesion is visualized within the superficial lobe of the left parotid gland measuring approximately 1.9 cm in maximal transaxial dimension. No active paranasal sinus disease. MR/MR head/brain wo con IMPRESSION: There are a few small acute cortical infarcts involving the left inferior parietal lobule. Scattered chronic small vessel ischemic changes are also visualized within the periventricular white matter. No acute intracranial hemorrhage. Of note there is a lobulated 1.9 cm lesion left within the superficial lobe of the left parotid gland, the etiology of which is uncertain on the basis of this examination. This may represent a varix, enlarged lymph node, or perhaps a primary intraparotid neoplasm.
--- NOTE | ~2020-08-03 | XR_ITS ---
EXAMINATION: CHEST AND RIGHT HIP CLINICAL INFORMATION: Fall COMPARISON: CT abdomen pelvis 06/29/2020, chest radiograph 12/23/2018 TECHNIQUE: Single view chest, single view pelvis with 2 additional views right hip FINDINGS: Chest: Heart size within normal limits. The aorta is ectatic and unfolded. Patchy densities are seen in the right mid lung, right lower lung and left lower lung, new when compared to the 2019 chest radiograph. Although only a portion of the lungs were included on the 06/29/2020 CT scan, the findings appear to have progressed. No pleural effusions are seen. Cement from prior kyphoplasty is present in T12 and multiple levels. Pelvis and right hip: An intramedullary jess and screw are present right femur. A definite acute hip fracture is not seen. No acute pelvic fracture is seen. There is a compression fracture of L4 which is unchanged when compared to the recent CT scan. XR/XR hip RT min 2V IMPRESSION: 1. Bilateral pulmonary infiltrates which appear new. 2. Chronic compression fractures lumbar spine with stable jess and screw right hip. No acute fracture is seen
--- NOTE | ~2020-08-03 | CT_ITS ---
EXAMINATION: CT angio head neck CLINICAL INFORMATION: Multiple sclerosis. Evaluate for stenosis. COMPARISON: Brain MRI 08/05/2020. CT scan of the head 09/17/2011. TECHNIQUE: Veterinary P[employer] Inspector images were obtained. A CT angiogram of the head and neck was performed in the arterial phase after the intravenous administration of 70 mL Omnipaque 350. Pre and delayed postcontrast images of the head were also obtained. MIP reconstructions were generated in multiple orientations at the acquisition workstation. Multiple three-dimensional surface rendered images and maximum intensity projection images were generated on a dedicated 3-D lab workstation. Arterial stenoses are measured in accordance with NASCET criteria or similar method if applicable. This CT examination was performed using dose optimization techniques as appropriate, including one or more of the following: Automated exposure control, iterative reconstruction, and adjustment of technique factors (mA and/or kVp) according to patient size (this includes techniques or standardized protocols for targeted exams where dose is matched to indication/reason for exam). Total exam dose-length product 2293 mGy-cm FINDINGS: Head: There is no acute intracranial hemorrhage or abnormal extra-axial collection. Postcontrast images reveal no abnormal mass or enhancement within the intracranial compartment. There is no intracranial mass effect or midline shift. Lateral and third ventricles are normal. No hydrocephalus. Scattered nonspecific foci of hypoattenuation visualized throughout the periventricular white matter that most likely represent a chronic manifestation of small vessel ischemia. The known acute cortical infarct within the left inferior parietal lobule is not well visualized on this examination. [place]-white matter differentiation is otherwise preserved and there is no evidence of acute territorial infarct. The calvarium and skull base are intact. A nonspecific sclerotic lesion involving the left frontal scalp has remained stable. The skull base is intact. No mastoid middle ear effusion. [id number] paranasal sinus disease involving one of the right posterior ethmoid air cells. CT angiogram neck: Scattered atheromatous calcification involves the aortic arch apex. Origins of the major aortic branches are widely patent. Common carotid arteries are patent. Minimal atheromatous calcification involves the carotid bifurcations. No stenosis of the extracranial internal carotid arteries. The cervical segments of the vertebral arteries as well as their origins are patent. CT angiogram head: Intracranial internal carotid arteries are patent. Intradural vertebral artery segments and basilar artery are patent. Anterior, middle, and posterior cerebral artery complexes are normal. No high-grade stenosis or proximal occlusion is visualized within the intracranial vessels. Other: Soft tissues of the neck including the thyroid gland are normal. Limited visualization of the chest reveals ill-defined airspace opacities involving both lungs. Grossly no pathologically enlarged cervical lymph nodes. There is no acute osseous finding. Specifically no worrisome lytic or blastic osseous lesion. CT/CT angio head neck IMPRESSION: There are numerous chronic small vessel ischemic changes within the periventricular white matter. Otherwise unremarkable examination. The known small acute cortical infarct involving left inferior parietal lobule is not well assessed on this examination. Otherwise no new infarct and no acute intracranial hemorrhage. There is no stenosis of the cervical carotid or vertebral arteries. No high-grade stenosis or proximal occlusion is visualized within the intracranial vessels. Although only partially included within the [id number] of this examination there are eccentric ill-defined airspace opacities visualized within the apices of both lungs.
--- NOTE | ~2020-08-03 | XR_ITS ---
EXAMINATION: CHEST AND RIGHT HIP CLINICAL INFORMATION: Fall COMPARISON: CT abdomen pelvis 06/29/2020, chest radiograph 12/23/2018 TECHNIQUE: Single view chest, single view pelvis with 2 additional views right hip FINDINGS: Chest: Heart size within normal limits. The aorta is ectatic and unfolded. Patchy densities are seen in the right mid lung, right lower lung and left lower lung, new when compared to the 2019 chest radiograph. Although only a portion of the lungs were included on the 06/29/2020 CT scan, the findings appear to have progressed. No pleural effusions are seen. Cement from prior kyphoplasty is present in T12 and multiple levels. Pelvis and right hip: An intramedullary jess and screw are present right femur. A definite acute hip fracture is not seen. No acute pelvic fracture is seen. There is a compression fracture of L4 which is unchanged when compared to the recent CT scan. XR/XR chest 1V IMPRESSION: 1. Bilateral pulmonary infiltrates which appear new. 2. Chronic compression fractures lumbar spine with stable jess and screw right hip. No acute fracture is seen
--- NOTE | ~2020-08-03 | CT_ITS ---
EXAMINATION: CT HEAD WITHOUT CONTRAST (STROKE PROTOCOL) CLINICAL INFORMATION: Stroke protocol. COMPARISON: 03/18/[address] scan. TECHNIQUE: Contiguous axial imaging was performed from the skull base to vertex without intravenous administration of contrast. Coronal and sagittal reformatted images were obtained. This CT examination was performed using dose optimization techniques as appropriate, variously including the following: *Automated exposure control *Adjustment of mA and/or kV according to patient size (this includes techniques or standardized protocols for targeted exams where dose is matched to indication/reason for exam; i.e. extremities or head) *Use of iterative reconstruction technique DLP: 626 mGy-cm FINDINGS: There is mild widening of the cortical sulci and associated ventriculomegaly with periventricular microvascular changes. This extends into these subinsular cortices bilaterally. The lateral ventricles are symmetrical. The third and fourth ventricles are in their normal midline position. The basilar and prepontine cisterns are unremarkable. There is no acute intra or extracerebral abnormality. There is no mass effect or midline shift. Sections through the bony calvarium are unremarkable. The orbits are intact. The paranasal sinuses are clear. The mastoid air cells are clear. CT/CT head for stroke IMPRESSION: Mild age-related changes appear increased from 03/18/2015. No acute intracranial pathology. This critical result was discussed with Dr. Bustamante at 6:55 PM hours on 08/03/2020. It was ascertained that the content and urgency of the report was understood at the time of direct communication.
--- NOTE | 2020-08-03 18:34 | ECG_ITS ---
Test Reason : STROKE? Blood Pressure : / mmHG Vent. Rate : 110 BPM Atrial Rate : 110 BPM P-R Int : 128 ms QRS Dur : 070 ms QT Int : 368 ms P-R-T Axes : 032 -35 022 degrees QTc Int : 498 ms Sinus tachycardia Left axis deviation Minimal voltage criteria for LVH, may be normal variant Nonspecific ST abnormality Abnormal ECG When compared with ECG of 28-JUN-2020 09:06, No significant change was found Referred By: Josefina Bustamante Electronically Signed By:RAI STEWART
--- NOTE | 2020-08-03 18:38 | ED_ITS ---
HPI - Neuro Symptoms/Deficit General Chief Complaint: Stroke Stated Complaint: stoke alert, speech deficits, on ground for abour Time Seen by Provider: 08/03/20 18:34 Source: patient and EMS Mode of arrival: EMS Limitations: altered mental status History of Present Illness HPI Narrative: 85 years old female brought in by ambulance after being on the ground for unknown time, patient last known healthy was 18:00 yesterday (23 hours ago). Family checked on the patient today found her on the ground. On EMS arrival patient was found on the ground on her back complaining of right- sided pain, patient intermittently have garbled speech with EMS, patient do not remember what happened to her how she got on the ground. On arrival patient is awake and alert but incoherent. Related Data Home Medications Medication Instructions Recorded Confirmed lisinopril 40 mg PO DAILY 06/28/20 08/03/20 metformin 250 mg PO DAILY 06/28/20 08/03/20 omega 0-ijs-hzn-fish oil [Fish Oil] 1 cap PO DAILY 06/28/20 08/03/20 omeprazole 20 mg PO DAILY 06/28/20 08/03/20 raloxifene 60 mg PO DAILY 06/28/20 08/03/20 rosuvastatin 5 mg PO BEDTIME 06/28/20 08/03/20 ascorbic acid (vitamin C) 500 mg 250 mg PO DAILY 07/13/20 08/03/20 tablet aspirin 81 mg tablet,delayed 81 mg PO DAILY 07/13/20 08/03/20 release budesonide-formoterol HFA 160 2 puff INHALATION BID 07/13/20 08/03/20 mcg-4.5 mcg/actuation aerosol inhaler cholecalciferol (vitamin D3) 125 125 mcg PO DAILY 07/13/20 08/03/20 mcg (5,000 unit) capsule flu vacc (65yr 0.5 ml IM DIRECTED 07/13/20 up)-MF59C(PF) 60 mcg(15 mcgx4)/0.5 mL IM syringe sotalol 80 mg tablet 80 mg PO BID 07/13/20 08/03/20 hydrocodone-acetaminophen 0.5 tab PO Q8H PRN 08/03/20 08/03/20 promethazine 1 - 2 tab PO QID PRN 08/03/20 08/03/20 Allergies Allergy/AdvReac Type Severity Reaction Status Date / Time azithromycin [From ZITHROMAX] Allergy Unknown THROAT RASH Verified 08/03/20 18:49 levofloxacin [From LEVAQUIN] Allergy Unknown UNKNOWN Verified 08/03/20 18:49 meperidine [Demerol] Allergy Unknown Palpitation Verified 08/03/20 18:49 s niacin [NIACIN] Allergy Unknown HIVES Verified 08/03/20 18:49 oxycodone [OXYCODONE] Allergy Unknown UNKNOWN Verified 08/03/20 18:49 tramadol [TRAMADOL] Allergy Unknown INCREASED Verified 08/03/20 18:49 BLOOD PRESSURE, NAUSEA morphine AdvReac Severe Unknown Verified 08/03/20 18:49 atorvastatin [From LIPITOR] AdvReac Intermediate ELEVATED Verified 08/03/20 18:49 LFT'S AND MUSCLE ACHES ondansetron AdvReac Unknown PALPITATION Verified 08/03/20 18:49 [From ZOFRAN ( S HYDROCHLORIDE)] Review of Systems Review of Systems: All other systems are reviewed and are negative Constitutional: Reports as per HPI and Reports no additional constitutional co mplaints Eyes: Reports as per HPI and Reports no additional eye complaints Reports system reviewed and no additional complaints, except as documented Cardiovascular: Reports as per HPI and Reports no additional cardiovascular complaints Respiratory: Reports as per HPI and Reports no additional respiratory complaints Gastrointestinal: Reports as per HPI and Reports no additional gastrointestinal complaints Genitourinary: Reports no additional female genitourinary complaints Musculoskeletal: Reports no additional musculoskeletal complaints Skin/Breast: Reports system reviewed and no additional complaints, except as docu Psychiatric: Reports no additional psychiatric complaints Endocrine: Reports no additional endocrine complaints Hematologic/Lymphatic: Reports no additional hematologic/lymphatic complaints Allergic/Immunologic: Reports no additional allergic/immunologic complaints Reports system reviewed and no additional complaints, except as documented and Reports Abnormal speech present [facility] Past Medical History Medical History Arthritis Asthma CAD (coronary artery disease) COPD (chronic obstructive pulmonary disease) COPD (chronic obstructive pulmonary disease) Cough Diabetes Diverticulitis DJD (degenerative joint disease) GERD (gastroesophageal reflux disease) High cholesterol Hypertension Surgical History H/O hernia repair H/O kyphoplasty H/O lumpectomy H/O: hysterectomy History of ankle surgery History of appendectomy History of arthroscopy History of bunionectomy History of cholecystectomy History of endometrial ablation Family History Family History Father Heart disease Social History Social History Household Members: None Alcohol intake: current Alcohol intake frequency: holidays/special occasions only Smoking Status: Never smoker Advance Directives: No Advance Directives Information Provided: No service: No Current occupational status: retired Physical Exam Vital Signs: Vital Signs: Last Vital Signs Temp 98.2 F 08/03/20 22:04 Pulse 109 H 08/03/20 22:04 Resp 28 H 08/03/20 22:04 BP 137/91 H 08/03/20 22:04 Pulse Ox 93 08/03/20 22:04 Body Mass Index 28.5 Vital signs have been reviewed as normal and appeared to be correct. Blood pressure normal. Heart rate normal. Respiration rate normal. Temperature normal. Oxygen saturation normal. Appearance: Alert. No acute distress. Regarding examiner. Head: Normal external exam. Normocephalic. Atraumatic. No Prieto signs noted. No raccoon eyes noted Eyes: PERRLA. EOMI. Conjunctiva and sclera normal. Eyelids normal. ENT: TM's Normal. Pharynx normal. Uvula midline. Moist mucous membranes. No trismus noted. No drooling noted. No muffled voice noted. Neck: Normal inspection. Neck supple. FROM. No adenopathy. Thyroid Normal. No meningeal signs. No neck mass noted. CVS: Normal heart rate and rhythm. Heart sound normal. No murmurs noted. Pulses normal throughout. Respiratory: No respiratory distress. Painless inspiration. Breath sounds normal. No wheezes/rales/rhonchi noted. Chest nontender. No accessory muscle usage noted or decreased air movement noted. Abdomen: Soft and nontender. Bowel sounds normal in all 4 quadrants. No distention noted. No organomegaly noted. No visible injury noted. Back: No CVA tenderness. Full range of motion noted. Skin: Skin warm and dry. Normal skin color. Normal skin turgor. No rashes/lesions/lacerations noted. Extremities: No lower extremity edema. Extremities exhibit normal range of motion. Extremities nontender. Neuro: No motor deficit. No sensory deficit. Reflexes normal. Course Course Course Narrative: Assessment and plan. 85-year-old female found on the ground for more than 24 hours came in with questionable mild stroke patient is not a candidate for tPA therapy, CT is negative, NIH score is 3 (patient initially speak fluently than started to have garbled speech in the middle of the conversation and this was noticed repeatedly while patient in the ED.) Patient was on the floor for unknown time but last was seen normal was more than 24 hours ago. Patient had recent C hospitalization x-ray showing bilateral infiltrates which is new patient meet criteria for SIRS more than likely it is viral pneumonia, however bacterial pneumonia cannot be ruled out we will cover for healthcare acquired pneumonia with Zosyn and doxycycline. Elevated troponin with no EKG changes, will repeat troponin to rule out ACS. Patient history is not reliable due to confusion. MDM - Neuro Symptoms/Deficit Medical Records Attestation: I reviewed the patient's medical records. Lab Data Attestation: I reviewed the patient's lab results. Result diagrams: 08/03/20 19:09 08/03/20 19:09 Labs: Lab Results 08/03/20 08/03/20 08/03/20 Range/Units 18:47 18:49 19:09 WBC 14.1 H (4.8-10.8) X10*3/uL RBC 4.51 D (4.20-5.50) X10*6/uL Hgb 14.4 D (12.0-16.0) g/dl Hct 41.9 D (37-47) % MCV 92.9 (80-98) fL MCH 31.9 (27.0-33.0) pg MCHC 34.4 (31.0-35.0) g/dl RDW 14.2 (11.0-16.0) % Plt Count 234 D (160-400) X10*3/uL MPV 9.9 (9.4-12.3) fL Immature Gran % (Auto) 0.5 H (0.0-0.4) % Neut % (Auto) 80.4 H (45-73) % Lymph % (Auto) 9.6 L (20-40) % [place] % (Auto) 9.1 (2-11) % Eos % (Auto) 0.0 (0-4) % Baso % (Auto) 0.4 (0-2) % Lymph # (Auto) 1.4 (1.2-4.9) X10*3/uL [place] # (Auto) 1.3 H (0.1-1.2) X10*3/uL Eos # (Auto) 0.0 (0.0-0.4) X10*3/uL Baso # (Auto) 0.1 (0.0-0.2) X10*3/uL Abs Immat Gran (auto) 0.07 H (0.00-0.03) X10*3/uL Absolute Neuts (auto) 11.4 H (2.0-8.3) X10*3/uL Absolute Nucleated RBC 0.000 (0.0-0.012) X10*3/uL Nucleated RBC % (auto) 0.0 (0.0-0.2) /100WBC PT (10.8-13.0) SEC Whole Blood PT 13.3 (11.1-13.5) sec INR (0.9-1.1) Whole Blood INR 1.1 (0.9-1.1) APTT (24.1-38.0) SEC Sodium (135-145) mmol/L Potassium (3.3-5.1) mmol/L Chloride (96-108) mmol/L Carbon Dioxide (22-29) mmol/L Anion Gap (12-20) BUN (9-16) mg/dL Creatinine (0.5-1.4) mg/dL Estim Creat Clear Calc Estimated GFR POC Glucose 155 H (60-115) mg/dL Random Glucose (60-115) mg/dL Calcium (8.4-10.2) mg/dL Magnesium (1.6-2.6) mg/dL Total Creatine Kinase (26-140) U/L Troponin I High Sens (<3.5-17.0) ng/L Urine Color Urine Appearance Urine pH (5.0-8.0) Ur Specific [place] (1.005-1.025) Urine Protein (NEG-TRACE) MG/DL Urine Glucose (UA) (NEG) MG/DL Urine Ketones (NEG) MG/DL Urine Blood (NEG) Urine Nitrite (NEG) Ur Leukocyte Esterase (NEG) Coronavirus (PCR) (Negative) SARS-CoV-2 (PCR) Influenza Type A (PCR) (Negative) Influenza Type B (PCR) (Negative) RSV RNA Qual (PCR) (Negative) 08/03/20 08/03/20 08/03/20 Range/Units 19:09 19:09 19:09 WBC (4.8-10.8) X10*3/uL RBC (4.20-5.50) X10*6/uL Hgb (12.0-16.0) g/dl Hct (37-47) % MCV (80-98) fL MCH (27.0-33.0) pg MCHC (31.0-35.0) g/dl RDW (11.0-16.0) % Plt Count (160-400) X10*3/uL MPV (9.4-12.3) fL Immature Gran % (Auto) (0.0-0.4) % Neut % (Auto) (45-73) % Lymph % (Auto) (20-40) % [place] % (Auto) (2-11) % Eos % (Auto) (0-4) % Baso % (Auto) (0-2) % Lymph # (Auto) (1.2-4.9) X10*3/uL [place] # (Auto) (0.1-1.2) X10*3/uL Eos # (Auto) (0.0-0.4) X10*3/uL Baso # (Auto) (0.0-0.2) X10*3/uL Abs Immat Gran (auto) (0.00-0.03) X10*3/uL Absolute Neuts (auto) (2.0-8.3) X10*3/uL Absolute Nucleated RBC (0.0-0.012) X10*3/uL Nucleated RBC % (auto) (0.0-0.2) /100WBC PT 15.5 H (10.8-13.0) SEC Whole Blood PT (11.1-13.5) sec INR 1.3 H (0.9-1.1) Whole Blood INR (0.9-1.1) APTT 28.4 (24.1-38.0) SEC Sodium 139 (135-145) mmol/L Potassium 4.0 (3.3-5.1) mmol/L Chloride 104 (96-108) mmol/L Carbon Dioxide 22 (22-29) mmol/L Anion Gap 17 (12-20) BUN 9 (9-16) mg/dL Creatinine 0.70 (0.5-1.4) mg/dL Estim Creat Clear Calc 51.7 Estimated GFR > 60 POC Glucose (60-115) mg/dL Random Glucose 168 H (60-115) mg/dL Calcium 8.7 D (8.4-10.2) mg/dL Magnesium 1.7 (1.6-2.6) mg/dL Total Creatine Kinase 243 H (26-140) U/L Troponin I High Sens 19.5 H D (<3.5-17.0) ng/L Urine Color Urine Appearance Urine pH (5.0-8.0) Ur Specific [place] (1.005-1.025) Urine Protein (NEG-TRACE) MG/DL Urine Glucose (UA) (NEG) MG/DL Urine Ketones (NEG) MG/DL Urine Blood (NEG) Urine Nitrite (NEG) Ur Leukocyte Esterase (NEG) Coronavirus (PCR) (Negative) SARS-CoV-2 (PCR) Influenza Type A (PCR) (Negative) Influenza Type B (PCR) (Negative) RSV RNA Qual (PCR) (Negative) 08/03/20 08/03/20 08/03/20 Range/Units 19:09 19:09 20:13 WBC (4.8-10.8) X10*3/uL RBC (4.20-5.50) X10*6/uL Hgb (12.0-16.0) g/dl Hct (37-47) % MCV (80-98) fL MCH (27.0-33.0) pg MCHC (31.0-35.0) g/dl RDW (11.0-16.0) % Plt Count (160-400) X10*3/uL MPV (9.4-12.3) fL Immature Gran % (Auto) (0.0-0.4) % Neut % (Auto) (45-73) % Lymph % (Auto) (20-40) % [place] % (Auto) (2-11) % Eos % (Auto) (0-4) % Baso % (Auto) (0-2) % Lymph # (Auto) (1.2-4.9) X10*3/uL [place] # (Auto) (0.1-1.2) X10*3/uL Eos # (Auto) (0.0-0.4) X10*3/uL Baso # (Auto) (0.0-0.2) X10*3/uL Abs Immat Gran (auto) (0.00-0.03) X10*3/uL Absolute Neuts (auto) (2.0-8.3) X10*3/uL Absolute Nucleated RBC (0.0-0.012) X10*3/uL Nucleated RBC % (auto) (0.0-0.2) /100WBC PT (10.8-13.0) SEC Whole Blood PT (11.1-13.5) sec INR (0.9-1.1) Whole Blood INR (0.9-1.1) APTT (24.1-38.0) SEC Sodium (135-145) mmol/L Potassium (3.3-5.1) mmol/L Chloride (96-108) mmol/L Carbon Dioxide (22-29) mmol/L Anion Gap (12-20) BUN (9-16) mg/dL Creatinine (0.5-1.4) mg/dL Estim Creat Clear Calc Estimated GFR POC Glucose (60-115) mg/dL Random Glucose (60-115) mg/dL Calcium (8.4-10.2) mg/dL Magnesium (1.6-2.6) mg/dL Total Creatine Kinase Cancelled (26-140) U/L Troponin I High Sens (<3.5-17.0) ng/L Urine Color YELLOW Urine Appearance CLEAR Urine pH 6.5 (5.0-8.0) Ur Specific [place] 1.015 (1.005-1.025) Urine Protein TRACE (NEG-TRACE) MG/DL Urine Glucose (UA) NEG (NEG) MG/DL Urine Ketones NEG (NEG) MG/DL Urine Blood NEG (NEG) Urine Nitrite NEG (NEG) Ur Leukocyte Esterase NEG (NEG) Coronavirus (PCR) POSITIVE A (Negative) SARS-CoV-2 (PCR) Cancelled Influenza Type A (PCR) NEGATIVE (Negative) Influenza Type B (PCR) NEGATIVE (Negative) RSV RNA Qual (PCR) NEGATIVE (Negative) 08/03/20 Range/Units 22:06 WBC (4.8-10.8) X10*3/uL RBC (4.20-5.50) X10*6/uL Hgb (12.0-16.0) g/dl Hct (37-47) % MCV (80-98) fL MCH (27.0-33.0) pg MCHC (31.0-35.0) g/dl RDW (11.0-16.0) % Plt Count (160-400) X10*3/uL MPV (9.4-12.3) fL Immature Gran % (Auto) (0.0-0.4) % Neut % (Auto) (45-73) % Lymph % (Auto) (20-40) % [place] % (Auto) (2-11) % Eos % (Auto) (0-4) % Baso % (Auto) (0-2) % Lymph # (Auto) (1.2-4.9) X10*3/uL [place] # (Auto) (0.1-1.2) X10*3/uL Eos # (Auto) (0.0-0.4) X10*3/uL Baso # (Auto) (0.0-0.2) X10*3/uL Abs Immat Gran (auto) (0.00-0.03) X10*3/uL Absolute Neuts (auto) (2.0-8.3) X10*3/uL Absolute Nucleated RBC (0.0-0.012) X10*3/uL Nucleated RBC % (auto) (0.0-0.2) /100WBC PT (10.8-13.0) SEC Whole Blood PT (11.1-13.5) sec INR (0.9-1.1) Whole Blood INR (0.9-1.1) APTT (24.1-38.0) SEC Sodium (135-145) mmol/L Potassium (3.3-5.1) mmol/L Chloride (96-108) mmol/L Carbon Dioxide (22-29) mmol/L Anion Gap (12-20) BUN (9-16) mg/dL Creatinine (0.5-1.4) mg/dL Estim Creat Clear Calc Estimated GFR POC Glucose 148 H (60-115) mg/dL Random Glucose (60-115) mg/dL Calcium (8.4-10.2) mg/dL Magnesium (1.6-2.6) mg/dL Total Creatine Kinase (26-140) U/L Troponin I High Sens (<3.5-17.0) ng/L Urine Color Urine Appearance Urine pH (5.0-8.0) Ur Specific [place] (1.005-1.025) Urine Protein (NEG-TRACE) MG/DL Urine Glucose (UA) (NEG) MG/DL Urine Ketones (NEG) MG/DL Urine Blood (NEG) Urine Nitrite (NEG) Ur Leukocyte Esterase (NEG) Coronavirus (PCR) (Negative) SARS-CoV-2 (PCR) Influenza Type A (PCR) (Negative) Influenza Type B (PCR) (Negative) RSV RNA Qual (PCR) (Negative) Imaging Data Chest x-ray: Radiologist's impression: 1. Bilateral pulmonary infiltrates which appear new. Right hip x-ray: Radiologist's impression: Chronic compression fractures lumbar spine with stable jess and screw right hip. No acute fracture is seen Head CT: Radiologist's impression: Mild age-related changes appear increased from 03/18/2015. No acute intracranial pathology Cervical spine CT: Radiologist's impression: 1. No evidence of acute fracture or traumatic subluxation of the cervical spine. 2. 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 There appears to be at least mild spinal canal stenosis at C4-C5. Moderate to advanced neural foraminal stenoses from C3-C7. 3. There is a 1.9 cm left-sided parotid gland lesion. This can be further characterized with directed ultrasound if clinically indicated. ECG Data Interpretation: Sinus tachycardia at 110 beats per minute, left axis deviation, LVH, nonspecific [id number]. NIH Stroke Scale Level of Consciousness: Alert Level of Consciousness Questions: Answers neither question correctly Level of Consciousness Commands: Performs both tasks correctly Best Gaze: Normal Visual: No visual loss Facial Palsy: Normal Motor Arm (Right): No drift Motor Arm (Left): No drift Motor Leg (Right): No drift Motor Leg (Left): No drift Limb Ataxia: Absent Sensory: Normal Best Language: Mild to moderate aphasia Dysarthia: Normal Extinction and Inattention: No abnormality Score: 3 Discharge Plan Discharge Clinical Impression: COVID-19 virus infection, Pneumonia, Acute alteration in mental status Patient Disposition: Admitted As Inpatient Prescriptions: No Action hydrocodone-acetaminophen 5-325 mg tablet 0.5 tab PO Q8H PRN (Reason: pain) RF: 0 promethazine 12.5 mg tablet 1 - 2 tab PO QID PRN (Reason: Nausea) RF: 0 metformin 500 mg tablet 250 mg PO DAILY RF: 0 omeprazole 20 mg capsule,delayed release(DR/EC) 20 mg PO DAILY RF: 0 raloxifene 60 mg tablet 60 mg PO DAILY RF: 0 lisinopril 40 mg tablet 40 mg PO DAILY RF: 0 rosuvastatin 5 mg tablet 5 mg PO BEDTIME RF: 0 omega 1-ynt-cel-fish oil [Fish Oil] 1,000 mg (120 mg-180 mg) Capsule 1 cap PO DAILY RF: 0 sotalol 80 mg tablet 80 mg PO BID RF: 0 aspirin 81 mg tablet,delayed release (DR/EC) 81 mg PO DAILY RF: 0 ascorbic acid (vitamin C) 500 mg tablet 250 mg PO DAILY RF: 0 cholecalciferol (vitamin D3) 125 mcg (5,000 unit) capsule 125 mcg PO DAILY RF: 0 budesonide-formoterol 160-4.5 mcg/actuation HFA aerosol inhaler 2 puff inhalation BID RF: 0 Fluad Quad 2020-21(65y up)(PF) 60 mcg (15 mcg x 4)/0.5 mL syringe 0.5 ml IM DIRECTED RF: 0
[2020-08-03 18:45] VITALS: BP 191/99; PULSE 108; PULSE 110; RESP 20; TEMP 36.7; O2SAT 95; BMI 28.5
[2020-08-03 19:04] LABS: Prothrombin Time Whole Bld POC 13.3 sec (11.1-13.5); ~PT, ~INR - Anti Coag Clinic 1.1 (0.9-1.1)
[2020-08-03 19:04] LABS: Glucose, Whole Blood 155 mg/dL (60-115)
[2020-08-03 19:16] LABS: Basophils Absolute Auto 0.1 X10*3/uL (0.0-0.2); Basophils Percent Auto 0.4 % (0-2); Hematocrit 41.9 % (37-47); Hemoglobin 14.4 g/dl (12.0-16.0); Imm Gran Abs Auto 0.07 X10*3/uL (0.00-0.03); Imm Gran Pct Auto 0.5 % (0.0-0.4); Lymphocytes Absolute Auto 1.4 X10*3/uL (1.2-4.9); Lymphocytes Percent Auto 9.6 % (20-40); MANUAL DIFF FLAG NO; Mean Corpuscular HGB Conc 34.4 g/dl (31.0-35.0); Mean Corpuscular Hemoglobin 31.9 pg (27.0-33.0); Mean Corpuscular Volume 92.9 fL (80-98); Mean Platelet Volume 9.9 fL (9.4-12.3); Monocytes Absolute Auto 1.3 X10*3/uL (0.1-1.2); Monocytes Percent Auto 9.1 % (2-11); Neutrophils Absolute Auto 11.4 X10*3/uL (2.0-8.3); Neutrophils Percent Auto 80.4 % (45-73); Platelet Count 234 X10*3/uL (160-400); Red Blood Count 4.51 X10*6/uL (4.20-5.50); Red Cell Distribution Width 14.2 % (11.0-16.0); White Blood Count 14.1 X10*3/uL (4.8-10.8)
[2020-08-03 19:17] LABS: Appearance Urine CLEAR; Color Urine YELLOW; Glucose Urine UA NEG (NEG); Leukocyte Esterase Urine NEG (NEG); Nitrite Urine NEG (NEG); PH 6.5 (5.0-8.0); Specific Gravity - Urine 1.015 (1.005-1.025); Urine Blood NEG (NEG); Urine Ketones NEG (NEG); Urine Protein TRACE MG/DL (NEG-TRACE)
[2020-08-03 19:19] VITALS: BP 208/112; PULSE 110; RESP 22
[2020-08-03 19:23] LABS: INTERNATIONAL NORM RATIO 1.3 (0.9-1.1); Prothrombin Time 15.5 SEC (10.8-13.0)
[2020-08-03 19:26] LABS: Partial Thromboplastin Time 28.4 SEC (24.1-38.0); Stroke Lab Use COMPLETE
[2020-08-03 19:27] VITALS: BP 177/85
[2020-08-03 19:46] LABS: Anion Gap 17 (12-20); Blood Urea Nitrogen 9 mg/dL (9-16); Calcium 8.7 mg/dL (8.4-10.2); Carbon Dioxide 22 mmol/L (22-29); Chloride 104 mmol/L (96-108); Creatinine Clr Calc Pharmacy 51.7; Estimated Glomerular Filt Rate > 60; Glucose Random 168 mg/dL (60-115); Magnesium 1.7 mg/dL (1.6-2.6); Sodium 139 mmol/L (135-145)
[2020-08-03 19:47] LABS: Troponin-I High Sensitivity 19.5 ng/L (<3.5-17.0)
--- NOTE | 2020-08-03 20:03 | PC.NURSE ---
PT REMAINS ALERT, ATTEMPTS TO RESPOND TO QUESTIONS, SENTENCES END IN NONSENSICAL WORDS THAT SHE DOES PERCEIVE TO MAKE SENSE. FOLLOWS COMMANDS, EQUAL STRENGTH IN HER EXTREMITIES BILAT. NO FACIAL DROOP. REDNESS AND SWELLING ON R HIP. DRY COUGH PRESENT. WILL CONFER WITH .
--- NOTE | 2020-08-03 20:11 | PC.NURSE ---
RADIOLOGY AWARE OF DELAY WITH CTA REPORT. THEY ARE BACKED UP.
[2020-08-03 21:06] LABS: Influenza A PCR NEGATIVE (Negative); Influenza B PCR NEGATIVE (Negative); Resp Syncy Virus RNA Qual PCR NEGATIVE (Negative); SARS COV2 PCR INHOUSE POSITIVE (Negative)
[2020-08-03 22:04] VITALS: BP 137/91; PULSE 109; RESP 28; TEMP 36.8; O2SAT 93
[2020-08-03 22:16] LABS: Glucose, Whole Blood 148 mg/dL (60-115)
--- NOTE | 2020-08-03 22:56 | PC.NURSE ---
SON RENETTA HAS BEEN UPDATED THROUGHOUT THE EVENING. HE REPORTED THAT SHE HAS BEEN INCREASINGLY CONFUSED AND FORGETFUL OVER THE PAST FEW WKS SINCE RECENT HOSPITALIZATION. CONFIRMED THAT ALTERED SPEECH IS NEW FOR PT TODAY. PT REMAINS SINUS TACH ON MONITOR, AFEBRILE, MILDLY HYPERTENSIVE, MEETING SEPSIS CRITERIA.
[2020-08-03] MEDS: Piperacillin Sodium/Tazobactam 3.375 GM in 0.9 % Sodium Chloride 50 ML IV (23:02)
[2020-08-03] MEDS: 0.9 % Sodium Chloride 1,000 ML 999 ML IVCONT (23:03)
[2020-08-03 23:08] LABS: Lactic Acid 1.7 mmol/L (0.5-2.0)
--- NOTE | 2020-08-03 23:19 | PM.IMHP ---
History of Present Illness Date of Service: 08/03/20 Chief Complaint: confusion This is an 85-year-old female with past medical history of asthma, COPD, COPD, diabetes, hypertension, hyperlipidemia, who is brought in from home by EMS. History is obtained from ED physician as patient is confused and unable to give any history. Patient was recently discharged from the hospital on 07/01 for perinephric hematoma. According to the family who called EMS patient last well known and at her baseline on 08/02 but when they went to see her around 23 hours later they found her to be very confused and on the floor. EMS found patient on the ground on her back complaining of right-sided pain. According to EMS she had intermittent garbled speech but did not remember what happened to her. She was not found unconscious. Attempted to ask patient about history but she is not oriented to place, time, events, answers no to all my questions but I am not sure she understands any of them. On arrival to the hospital patient's temperature is 98.1?, heart rate of 108, respiratory rate of 20, blood pressure 191/99, satting 95% on room air Labs are significant for WBC of 14.1, INR of 1.3, CPK of 243, UA negative, chest x-ray showing bilateral pulmonary infiltrates which are new from June, COVID-19 positive. Review of Systems Review of Systems: Yes Unobtainable due to mental status [facility] Medical History Arthritis Asthma CAD (coronary artery disease) COPD (chronic obstructive pulmonary disease) COPD (chronic obstructive pulmonary disease) Cough Diabetes Diverticulitis DJD (degenerative joint disease) GERD (gastroesophageal reflux disease) High cholesterol Hypertension Family History Father Heart disease Surgical History H/O hernia repair H/O kyphoplasty H/O lumpectomy H/O: hysterectomy History of ankle surgery History of appendectomy History of arthroscopy History of bunionectomy History of cholecystectomy History of endometrial ablation Social History Household Members: None Housing: House Unable to assess alcohol history related to: Unknown Alcohol intake: current Alcohol intake frequency: holidays/special occasions only Smoking Status: Never smoker Use of substances other than those prescribed or required for medical reasons: Unknown Advance Directives: No Advance Directives Information Provided: No Do you have thoughts of harming others: None Do you have a plan to hurt others: No Plan Recently lost weight without trying: Unsure service: No Current occupational status: retired Meds Allergies Allergy/AdvReac Type Severity Reaction Status Date / Time azithromycin [From ZITHROMAX] Allergy Unknown THROAT RASH Verified 08/03/20 18:49 levofloxacin [From LEVAQUIN] Allergy Unknown UNKNOWN Verified 08/03/20 18:49 meperidine [Demerol] Allergy Unknown Palpitation Verified 08/03/20 18:49 s niacin [NIACIN] Allergy Unknown HIVES Verified 08/03/20 18:49 oxycodone [OXYCODONE] Allergy Unknown UNKNOWN Verified 08/03/20 18:49 tramadol [TRAMADOL] Allergy Unknown INCREASED Verified 08/03/20 18:49 BLOOD PRESSURE, NAUSEA morphine AdvReac Severe Unknown Verified 08/03/20 18:49 atorvastatin [From LIPITOR] AdvReac Intermediate ELEVATED Verified 08/03/20 18:49 LFT'S AND MUSCLE ACHES ondansetron AdvReac Unknown PALPITATION Verified 08/03/20 18:49 [From ZOFRAN ( S HYDROCHLORIDE)] Active Medications: Current Medications Generic Name Dose Route Start Last Admin Trade Name Freq PRN Reason Stop Dose Admin Sodium Chloride 1,000 mls @ 999 mls/hr 08/03/20 22:30 08/03/20 23:03 Ns IVCONT 08/03/20 23:30 999 mls/hr [id number] Administration Pharmacy Consult 1 each 08/03/20 19:05 Consult Rx Perform Med Rec MISCELLANE ONCE PRN Consult order Home Medications Medication Instructions Recorded Confirmed Last Taken Type lisinopril 40 mg PO DAILY 06/28/20 08/03/20 08/02/20 History metformin 250 mg PO DAILY 06/28/20 08/03/20 08/02/20 History omega 9-ybg-zoe-fish oil [Fish Oil] 1 cap PO DAILY 06/28/20 08/03/20 08/02/20 History omeprazole 20 mg PO DAILY 06/28/20 08/03/20 08/02/20 History raloxifene 60 mg PO DAILY 06/28/20 08/03/20 08/02/20 History rosuvastatin 5 mg PO BEDTIME 06/28/20 08/03/20 08/02/20 History ascorbic acid (vitamin C) 500 mg 250 mg PO DAILY 07/13/20 08/03/20 08/02/20 History tablet aspirin 81 mg tablet,delayed 81 mg PO DAILY 07/13/20 08/03/20 08/02/20 History release budesonide-formoterol HFA 160 2 puff INHALATION BID 07/13/20 08/03/20 08/02/20 History mcg-4.5 mcg/actuation aerosol inhaler cholecalciferol (vitamin D3) 125 125 mcg PO DAILY 07/13/20 08/03/20 08/02/20 History mcg (5,000 unit) capsule flu vacc (65yr 0.5 ml IM DIRECTED 07/13/20 Unknown History up)-MF59C(PF) 60 mcg(15 mcgx4)/0.5 mL IM syringe sotalol 80 mg tablet 80 mg PO BID 07/13/20 08/03/20 08/02/20 History hydrocodone-acetaminophen 0.5 tab PO Q8H PRN 08/03/20 08/03/20 Unknown History promethazine 1 - 2 tab PO QID PRN 08/03/20 08/03/20 Unknown History Physical Exam Vital Signs and Narrative: Vital Signs: Last Vital Signs Temp 98.2 F 08/03/20 22:04 Pulse 109 H 08/03/20 22:04 Resp 28 H 08/03/20 22:04 BP 137/91 H 08/03/20 22:04 Pulse Ox 93 08/03/20 22:04 Body Mass Index 28.5 Const: Other: Somnolent for arousable, General: ill appearing Eyes: Other: Not following command for me to be able to assess neurology function of eyes Resp: Effort & Inspection: normal respiratory effort and able to speak in complete sentences Cardio: Rate: regular rate Rhythm: regular rhythm GI: Palpation (GI): Soft to palpation Auscultation: normal bowel sounds Skin: General skin exam: no rashes or lesions noted Neuro: Other: Not following neurological commands Extrem: General: Yes normal to inspection and Yes no pedal edema Results Labs CBC and Chem 7: 08/03/20 19:09 08/03/20 19:09 Labs: Laboratory Results - last 24 hr 08/03/20 08/03/20 08/03/20 18:47 18:49 19:09 MCV 92.9 MCH 31.9 MCHC 34.4 RDW 14.2 Plt Count 234 D MPV 9.9 Immature Gran % (Auto) 0.5 H Neut % (Auto) 80.4 H Lymph % (Auto) 9.6 L [place] % (Auto) 9.1 Eos % (Auto) 0.0 Baso % (Auto) 0.4 Lymph # (Auto) 1.4 [place] # (Auto) 1.3 H Eos # (Auto) 0.0 Baso # (Auto) 0.1 Abs Immat Gran (auto) 0.07 H Absolute Neuts (auto) 11.4 H Absolute Nucleated RBC 0.000 Nucleated RBC % (auto) 0.0 PT Whole Blood PT 13.3 INR Whole Blood INR 1.1 APTT Anion Gap Estim Creat Clear Calc Estimated GFR POC Glucose 155 H Random Glucose Lactic Acid Calcium Magnesium Total Creatine Kinase Troponin I High Sens Urine Color Urine Appearance Urine pH Ur Specific [place] Urine Protein Urine Glucose (UA) Urine Ketones Urine Blood Urine Nitrite Ur Leukocyte Esterase Coronavirus (PCR) SARS-CoV-2 (PCR) Influenza Type A (PCR) Influenza Type B (PCR) RSV RNA Qual (PCR) 08/03/20 08/03/20 08/03/20 19:09 19:09 19:09 MCV MCH MCHC RDW Plt Count MPV Immature Gran % (Auto) Neut % (Auto) Lymph % (Auto) [place] % (Auto) Eos % (Auto) Baso % (Auto) Lymph # (Auto) [place] # (Auto) Eos # (Auto) Baso # (Auto) Abs Immat Gran (auto) Absolute Neuts (auto) Absolute Nucleated RBC Nucleated RBC % (auto) PT 15.5 H Whole Blood PT INR 1.3 H Whole Blood INR APTT 28.4 Anion Gap 17 Estim Creat Clear Calc 51.7 Estimated GFR > 60 POC Glucose Random Glucose 168 H Lactic Acid Calcium 8.7 D Magnesium 1.7 Total Creatine Kinase 243 H Troponin I High Sens 19.5 H D Urine Color Urine Appearance Urine pH Ur Specific [place] Urine Protein Urine Glucose (UA) Urine Ketones Urine Blood Urine Nitrite Ur Leukocyte Esterase Coronavirus (PCR) SARS-CoV-2 (PCR) Influenza Type A (PCR) Influenza Type B (PCR) RSV RNA Qual (PCR) 08/03/20 08/03/20 08/03/20 19:09 19:09 20:13 MCV MCH MCHC RDW Plt Count MPV Immature Gran % (Auto) Neut % (Auto) Lymph % (Auto) [place] % (Auto) Eos % (Auto) Baso % (Auto) Lymph # (Auto) [place] # (Auto) Eos # (Auto) Baso # (Auto) Abs Immat Gran (auto) Absolute Neuts (auto) Absolute Nucleated RBC Nucleated RBC % (auto) PT Whole Blood PT INR Whole Blood INR APTT Anion Gap Estim Creat Clear Calc Estimated GFR POC Glucose Random Glucose Lactic Acid Calcium Magnesium Total Creatine Kinase Cancelled Troponin I High Sens Urine Color YELLOW Urine Appearance CLEAR Urine pH 6.5 Ur Specific [place] 1.015 Urine Protein TRACE Urine Glucose (UA) NEG Urine Ketones NEG Urine Blood NEG Urine Nitrite NEG Ur Leukocyte Esterase NEG Coronavirus (PCR) POSITIVE A SARS-CoV-2 (PCR) Cancelled Influenza Type A (PCR) NEGATIVE Influenza Type B (PCR) NEGATIVE RSV RNA Qual (PCR) NEGATIVE 08/03/20 08/03/20 22:06 22:41 MCV MCH MCHC RDW Plt Count MPV Immature Gran % (Auto) Neut % (Auto) Lymph % (Auto) [place] % (Auto) Eos % (Auto) Baso % (Auto) Lymph # (Auto) [place] # (Auto) Eos # (Auto) Baso # (Auto) Abs Immat Gran (auto) Absolute Neuts (auto) Absolute Nucleated RBC Nucleated RBC % (auto) PT Whole Blood PT INR Whole Blood INR APTT Anion Gap Estim Creat Clear Calc Estimated GFR POC Glucose 148 H Random Glucose Lactic Acid 1.7 Calcium Magnesium Total Creatine Kinase Troponin I High Sens Urine Color Urine Appearance Urine pH Ur Specific [place] Urine Protein Urine Glucose (UA) Urine Ketones Urine Blood Urine Nitrite Ur Leukocyte Esterase Coronavirus (PCR) SARS-CoV-2 (PCR) Influenza Type A (PCR) Influenza Type B (PCR) RSV RNA Qual (PCR) Imaging Radiologist's Impressions: Impressions Chest X-Ray 08/03/20 18:34 IMPRESSION: 1. Bilateral pulmonary infiltrates which appear new. 2. Chronic compression fractures lumbar spine with stable jess and screw right hip. No acute fracture is seen Head CT 08/03/20 18:34 IMPRESSION: Mild age-related changes appear increased from 03/18/2015. No acute intracranial pathology. This critical result was discussed with Dr. Bustamante at 6:55 PM hours on 08/03/2020. It was ascertained that the content and urgency of the report was understood at the time of direct communication. Cervical Spine CT 08/03/20 18:36 IMPRESSION: 1. No evidence of acute fracture or traumatic subluxation of the cervical spine. 2. 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 There appears to be at least mild spinal canal stenosis at C4-C5. Moderate to advanced neural foraminal stenoses from C3-C7. 3. There is a 1.9 cm left-sided parotid gland lesion. This can be further characterized with directed ultrasound if clinically indicated. Hip X-Ray 08/03/20 21:15 IMPRESSION: 1. Bilateral pulmonary infiltrates which appear new. 2. Chronic compression fractures lumbar spine with stable jess and screw right hip. No acute fracture is seen Assessment and Plan (1) Acute alteration in mental status: Status: Acute (2) COVID-19 virus infection: Status: Acute (3) Pneumonia: Qualifiers: Laterality: bilateral Pneumonia type: due to unspecified organism Status: Acute (4) Sepsis: Status: Acute This is a 85-year-old female with past medical history as above who presents to the hospital with altered mentation and garbled speech per EMS as well as ED physician. Found to have COVID-19 positive and pneumonia # encephalopathy - CVA versus acute infection including pneumonia causing altered mentation - unable to assess for neurological deficits as patient is not following command - CT head negative for any acute abnormality - has COVID-19 positive serology as well as bilateral infiltrates concerning for COVID pneumonia - meets sepsis criteria Plan: - treat underlying pneumonia - will obtain MRI in a.m. to rule out acute stroke - follow mental status changes/improved # bilateral pneumonia - no hypoxia, - bacterial versus viral COVID-19 PCR positive although patient was recently hospitalized within the last 60 days and therefore concerning for hospital-acquired pneumonia Plan: - as patient is not hypoxic will hold off on starting dexamethasone - will start her on broad-spectrum antibiotics given recent hospitalization - follow cultures - can DC antibiotics if cultures negative # sepsis - secondary to pneumonia - has tachycardia, leukocytosis, afebrile, no lactic acidosis - patient started on antibiotics, will continue to cover for hospital-acquired pneumonia # CAD - continue aspirin and sotalol # diabetes - hold metformin - start low-dose sliding scale insulin # hypertension - elevated - continue lisinopril DVT prophylaxis: Heparin subQ
[2020-08-03 23:29] LABS: Troponin-I High Sensitivity 21.8 ng/L (<3.5-17.0)
[2020-08-04] VITALS (9 sets, daily range): BP systolic 135–160; BP diastolic 64–92; PULSE 87–119; RESP 18–25; TEMP 36.3–38; O2SAT 91–96
[2020-08-04] MEDS: vancomycin HCL 1,000 MG in 0.9 % Sodium Chloride 250 ML 270 MG IV (00:47)
[2020-08-04] MEDS: Heparin Sodium,Porcine 5,000 UNIT/ML VIAL 5000 UNIT SUBCUT ×3 (00:59→23:04)
[2020-08-04] MEDS: 0.9 % Sodium Chloride Flush 3 ML SYRINGE IVFLUSH ×3 (01:47→17:48)
[2020-08-04] MEDS: Acetaminophen 325 MG TABLET 650 MG PO (04:01)
[2020-08-04] MEDS: Piperacillin Sodium/Tazobactam 3.375 GM in 0.9 % Sodium Chloride 50 ML IV ×4 (06:10→23:05)
[2020-08-04 06:18] LABS: MANUAL DIFF FLAG NO
[2020-08-04 06:23] LABS: Basophils Absolute Auto 0.1 X10*3/uL (0.0-0.2); Basophils Percent Auto 0.4 % (0-2); Hematocrit 38.8 % (37-47); Hemoglobin 13.1 g/dl (12.0-16.0); Imm Gran Abs Auto 0.05 X10*3/uL (0.00-0.03); Imm Gran Pct Auto 0.4 % (0.0-0.4); Lymphocytes Absolute Auto 1.4 X10*3/uL (1.2-4.9); Lymphocytes Percent Auto 10.7 % (20-40); Mean Corpuscular HGB Conc 33.8 g/dl (31.0-35.0); Mean Corpuscular Hemoglobin 31.7 pg (27.0-33.0); Mean Corpuscular Volume 93.9 fL (80-98); Mean Platelet Volume 10.6 fL (9.4-12.3); Monocytes Absolute Auto 1.1 X10*3/uL (0.1-1.2); Monocytes Percent Auto 8.9 % (2-11); Neutrophils Absolute Auto 10.1 X10*3/uL (2.0-8.3); Neutrophils Percent Auto 79.6 % (45-73); Platelet Count 199 X10*3/uL (160-400); Red Blood Count 4.13 X10*6/uL (4.20-5.50); Red Cell Distribution Width 14.4 % (11.0-16.0); White Blood Count 12.7 X10*3/uL (4.8-10.8)
[2020-08-04 06:54] LABS: Anion Gap 17 (12-20); Blood Urea Nitrogen 11 mg/dL (9-16); Calcium 7.9 mg/dL (8.4-10.2); Carbon Dioxide 21 mmol/L (22-29); Chloride 105 mmol/L (96-108); Creatinine Clr Calc Pharmacy 54.8; Estimated Glomerular Filt Rate > 60; Glucose Random 153 mg/dL (60-115); Potassium 3.6 mmol/L (3.3-5.1); Sodium 139 mmol/L (135-145)
--- NOTE | 2020-08-04 07:41 | PC.NURSE ---
0145; Patient stated she wanted to use the bathroom, attempted to get patient up to the commode with 2 assist, patient unable. Placed patient on bedpan and patient reported she cannot void. Bladder scanned patient for [address] Oakley notified via [employer]. Awaiting orders. At 0400 patient attempted bed law again and could not void, bladder scanned patient for 310 mls, hospitalist made aware. Order for reeves catheter. Reeves placed, draining yellow urine freely, patient tolerated well. Continue to monitor.
[2020-08-04] MEDS: Omeprazole 20 MG CAPSULE.DR PO (08:55)
[2020-08-04] MEDS: Ascorbic Acid 500 MG TABLET 250 MG PO (08:55)
[2020-08-04] MEDS: Sotalol HCL 80 MG TABLET PO ×2 (08:55→20:28)
[2020-08-04] MEDS: Aspirin Enteric Coated 81 MG TABLET.DR PO (08:56)
[2020-08-04 09:05] LABS: Glucose, Whole Blood 141 mg/dL (60-115)
--- NOTE | 2020-08-04 09:19 | MHC.STROKE ---
08/03/20 1826 EMS PRE-NOTIFICATION STROKE ALERT . GARBLED SPEECH, UNABLE TO ANSWER QUESTIONS. NIHSS = 3, LAST KNOWN WELL 08/02/[address]ELY [address]STAT [address] HEAD, NO BLEED, EXCLUDED FROM TPA BASED ON DELAY IN ARRIVAL FROM [facility] AND [facility]. SHE WAS DISCHARGED LAST MONTH WITH A PERINEPHRIC HEMATOMA, WHICH WOULD BE ANOTHER EXCLUSION. MRI PENDING, I WILL CONTINUE TO FOLLOW
--- NOTE | 2020-08-04 09:29 | MHC.CM.PN ---
Patient is here with new confusion and Covid; CM spoke with Daughter/HCP/Katt @ [phone] (IMM addressed with Katt and original is being mailed certified letter to her and a copy has been placed on the chart). Patient lives alone in a house and Katt and her assist daily PRN for meals shopping etc. Patient had no prior VNA but has as Privately [employer]. The goal for dc is to return home but if STR is recommended, [facility], where Patient has been in the past. CM has initiated and will follow for dc planning.Patient uses a walker and her PCP is now Dr. Jett Christian, since prior PCP has (Dr. Vines). Patient's Daughter is able to stay with Patient after dc, if Patient returns directly home.
--- NOTE | 2020-08-04 10:48 | P.CDIC_ITS ---
CDI Concurrent Query Service Date: 08/04/20 Documentation Clarification: Please clarify if you are treating a proba ble/suspected/likely or confirmed: Specifics: Metabolic encephalopathy Acute encephalopathy Toxic encephalopathy Please specify if known Provider Response: Metabolic Encephalopathy PLEASE DO NOT DELETE/MODIFY EXISTING CONTENT Additional information is needed in order to code to the highest accuracy and appropriate Severity of Illness (SOI). Please clarify the information noted below in your progress notes and discharge summary. Risk Factors/Clinical Indicators/Treatments PN: Assessment/plan: Encephalopathy CVA vs acute infection including pna. ED: patient confused and unable to give information, very confused found on floor. Not oriented to place, time, events and answers no to questions. CDS: Sophy Randall CCS, CDIS Contact Number: [phone]. [phone] Please Review the information above and exercise your independent professional judgment in responding to the query. If you concur, pleas document in the PROGRESS NOTES and DISCHARGE SUMMARY. If you do not agree with the query, please document in the query above. THIS QUERY IS PART OF THE PERMANENT MEDICAL RECORD
[2020-08-04 12:26] LABS: Glucose, Whole Blood 141 mg/dL (60-115)
[2020-08-04] MEDS: vancomycin HCL 500 MG in 0.9 % Sodium Chloride 100 ML 110 MG IV (13:35)
--- NOTE | 2020-08-04 14:45 | HO.PM.IMPN ---
Subjective Subjective Date of Service: 08/04/20 Interval History: Patient seen and examined at bedside patient remains confused not requiring oxygen Review of Systems All other systems are reviewed and are negative Constitutional: Reports as per HPI and Reports no additional constitutional complaints Eyes: Reports as per HPI and Reports no additional eye complaints Reports system reviewed and no additional complaints, except as documented Cardiovascular: Reports as per HPI and Reports no additional cardiovascular complaints Respiratory: Reports as per HPI and Reports no additional respiratory complaints Gastrointestinal: Reports as per HPI and Reports no additional gastrointestinal complaints Genitourinary: Reports no additional female genitourinary complaints Musculoskeletal: Reports no additional musculoskeletal complaints Skin/Breast: Reports system reviewed and no additional complaints, except as docu Psychiatric: Reports no additional psychiatric complaints Endocrine: Reports no additional endocrine complaints Hematologic/Lymphatic: Reports no additional hematologic/lymphatic complaints Allergic/Immunologic: Reports no additional allergic/immunologic complaints Reports system reviewed and no additional complaints, except as documented and Reports Abnormal speech present Physical Exam Vital Signs: Vital Signs: Last Vital Signs Temp 98.9 F 08/04/20 12:00 Pulse 98 08/04/20 12:00 Resp 18 08/04/20 12:00 BP 160/92 H 08/04/20 12:00 Pulse Ox 96 08/04/20 12:00 Body Mass Index 28.5 Const: General: ill appearing Eyes: Other: Not following command for me to be able to assess neurology function of eyes Resp: Effort & Inspection: normal respiratory effort and able to speak in complete sentences Cardio: Rate: regular rate Rhythm: regular rhythm GI: Palpation (GI): Soft to palpation Auscultation: normal bowel sounds Skin: General skin exam: no rashes or lesions noted Neuro: Other: Not following neurological commands Extrem: General: Yes normal to inspection and Yes no pedal edema Objective Data Current Medications Generic Name Dose Route Start Last Admin Trade Name Freq PRN Reason Stop Dose Admin Acetaminophen 650 mg 08/03/20 23:16 08/04/20 04:01 Acetaminophen 325 Mg Tablet PO 650 mg Q6H PRN Administration Pain, Mild (Pain Scale 1-3) Hydrocodone Bitart/Acetaminophen 0.5 tab 08/03/20 23:16 Hydrocodone Bit/Acetam 5/325 Tablet PO Q8H PRN pain Ascorbic Acid 250 mg 08/04/20 09:00 08/04/20 08:55 Ascorbic Acid 500 Mg Tablet PO 250 mg DAILY THEO Administration Aspirin 81 mg 08/04/20 09:00 08/04/20 08:56 Aspirin Enteric Coated 81 Mg Tablet. PO 81 mg DAILY THEO Administration Docusate Sodium 100 mg 08/03/20 23:16 Docusate Sodium 100 Mg Capsule PO DAILY PRN Constipation Fluticasone/Vilanterol 1 puff 08/04/20 09:00 08/04/20 07:28 Fluticasone/Vilanterol 200/25 Blst.W.Dev INHALE Not Given DAILY [facility] Heparin Sodium (Porcine) 5,000 unit 08/03/20 23:16 08/04/20 12:17 Heparin Sodium,Porcine 5,000 Unit/Ml Vial SUBCUT 5,000 unit Q12H [facility] Administration Piperacillin Sod/Tazobactam 50 mls @ 100 mls/hr 08/03/20 23:16 08/04/20 13:02 Sod 3.375 gm/ Sodium Chloride IV Infused Q6H THEO Infusion Vancomycin HCl 500 mg/ Sodium 110 mls @ 110 mls/hr 08/04/20 13:00 08/04/20 14:44 Chloride IV Infused Q12H [facility] Infusion Lisinopril 40 mg 08/04/20 09:00 08/04/20 08:55 Lisinopril 40 Mg Tablet PO 40 mg DAILY [facility] Administration Protocol Non-Formulary Medication 5 mg 08/04/20 21:00 Rosuvastatin PO BEDTIME [facility] Omeprazole 20 mg 08/04/20 09:00 08/04/20 08:55 Omeprazole 20 Mg Capsule. PO 20 mg DAILY THEO Administration Pharmacy Consult 1 each 08/03/20 19:05 Consult Rx Perform Med Rec MISCELLANE ONCE PRN Consult order Pharmacy Consult 1 each 08/03/20 23:16 Consult Rx Vancomycin Dosing MISCELLANE DAILY PRN Consult order Promethazine HCl 12.5 mg 08/04/20 06:12 Promethazine Hcl 25 Mg Tablet PO QID PRN Nausea Sodium Chloride 3 ml 08/04/20 00:00 08/04/20 08:56 0.9 % Sodium Chloride Flush 3 Ml Syringe IVFLUSH 3 ml QSHIFT [facility] Administration Sotalol HCl 80 mg 08/04/20 09:00 08/04/20 08:55 Sotalol Hcl 80 Mg Tablet PO 80 mg BID [facility] Administration Labs CBC & Chem 7: 08/04/20 05:20 08/04/20 05:20 Assessment and Plan (1) Acute alteration in mental status: Status: Acute (2) COVID-19 virus infection: Status: Acute (3) Pneumonia: Status: Acute (4) Sepsis: Status: Acute Assessment and Plan: This is a 85-year-old female with past medical history as above who presents to the hospital with altered mentation and garbled speech per EMS as well as ED physician. Found to have COVID-19 positive and pneumonia Metabolic encephalopathy likely secondary to underlying COVID infection No focal deficit CT head on admission shows no acute abnormality monitor mental status Biilateral pneumonia COVID positive continue antibiotic continue supportive management CAD continue aspirin and sotalol Diiabetes mellitus Continue sliding scale insulin monitor blood glucose Hypertension Continue lisinopril DVT prophylaxis: Heparin subQ
[2020-08-04 16:16] LABS: Glucose, Whole Blood 122 mg/dL (60-115)
--- NOTE | 2020-08-04 18:43 | PC.NURSE ---
expressive aphasia present, Dr Johns was notified , Per MD : neuro consult will be placed.
[2020-08-04 19:54] LABS: Glucose, Whole Blood 156 mg/dL (60-115)
[2020-08-05] VITALS (8 sets, daily range): BP systolic 135–151; BP diastolic 62–77; PULSE 81–131; RESP 18–20; TEMP 36.6–37.4; O2SAT 92–96
--- NOTE | 2020-08-05 | ECG_ITS ---
Test Reason : tachy Blood Pressure : / mmHG Vent. Rate : 121 BPM Atrial Rate : 121 BPM P-R Int : 164 ms QRS Dur : 078 ms QT Int : 324 ms P-R-T Axes : -16 -42 047 degrees QTc Int : 460 ms Sinus tachycardia Left axis deviation Nonspecific ST abnormality Abnormal ECG When compared to the previous EKG of No significant changes seen Referred By: Teresita Oakley Electronically Signed By:JOSE ELIAS VELAZQUEZ MD
[2020-08-05] MEDS: Acetaminophen 325 MG TABLET 650 MG PO (03:28)
--- NOTE | 2020-08-05 03:30 | MHC.PIE ---
P.SINUS TACH I.PT NOTED TO BE IN STACH,HR 120-130,BP 141/77.TEMP 99.4.MED WITH TYLENOL 650 MG PO.ALSO NOTED DECREASED OUTPUT IN F/C ONLY 100CC. NOTIFIED. SUGGEST PAIN MED BE GIVEN PT DID C/O SOME PAIN WITH REPOSITIONING,MED WITH HYDROCODONE 5/325.PT TAKING MEDS PO CRUSHED WITHOUT DIFFICULTY.FLUIDS ALSO ENCOURAGED.STILL REMAINED STACH AFTER PAIN MED AND TYLENOL. RENOTIFIED AND UPDATED THAT URINE OUTPUT STILL LOW.NEW ORDER GIVEN FOR LR AT 100/HR AND OBTAINED STAT EKG WHICH WAS DONE AND SENT TO . [facility].NEXT SHIFT UPDATED.
[2020-08-05] MEDS: HYDROcodone Bit/Acetam 5/325 TABLET 0.5 TAB PO (04:29)
[2020-08-05] MEDS: Piperacillin Sodium/Tazobactam 3.375 GM in 0.9 % Sodium Chloride 50 ML IV ×4 (04:30→23:23)
[2020-08-05] MEDS: Lactated Ringers 1,000 ML 100 ML IVCONT ×2 (06:28→18:14)
[2020-08-05 07:40] LABS: Glucose, Whole Blood 148 mg/dL (60-115)
[2020-08-05] MEDS: 0.9 % Sodium Chloride Flush 3 ML SYRINGE IVFLUSH ×3 (07:48→21:03)
[2020-08-05] MEDS: Fluticasone/Vilanterol 200/25 BLST.W.DEV 1 PUFF INHALE (08:24)
[2020-08-05] MEDS: Aspirin Enteric Coated 81 MG TABLET.DR PO (10:05)
[2020-08-05] MEDS: Ascorbic Acid 500 MG TABLET 250 MG PO (10:06)
[2020-08-05] MEDS: Sotalol HCL 80 MG TABLET PO ×2 (10:06→20:58)
[2020-08-05] MEDS: Omeprazole 20 MG CAPSULE.DR PO (10:08)
--- NOTE | 2020-08-05 10:22 | ECG_ITS ---
Test Reason : SOB Blood Pressure : / mmHG Vent. Rate : 123 BPM Atrial Rate : 123 BPM P-R Int : 160 ms QRS Dur : 076 ms QT Int : 324 ms P-R-T Axes : 001 -33 046 degrees QTc Int : 463 ms Sinus tachycardia with occasional Premature ventricular complexes Left axis deviation Minimal voltage criteria for LVH, may be normal variant Abnormal ECG When compared with ECG of 05-AUG-2020 06:30, Premature ventricular complexes are now Present Referred By: Kash Johns Electronically Signed By:JOSE ELIAS VELAZQUEZ MD
[2020-08-05 11:34] LABS: Glucose, Whole Blood 116 mg/dL (60-115)
[2020-08-05] MEDS: Heparin Sodium,Porcine 5,000 UNIT/ML VIAL 5000 UNIT SUBCUT ×2 (11:57→23:25)
[2020-08-05 12:54] LABS: Anion Gap 11 (12-20); Blood Urea Nitrogen 15 mg/dL (9-16); Calcium 8.1 mg/dL (8.4-10.2); Carbon Dioxide 27 mmol/L (22-29); Chloride 104 mmol/L (96-108); Creatinine Clr Calc Pharmacy 46.3; Estimated Glomerular Filt Rate > 60; Glucose Random 117 mg/dL (60-115); Magnesium 1.7 mg/dL (1.6-2.6); Potassium 3.4 mmol/L (3.3-5.1); Sodium 139 mmol/L (135-145)
--- NOTE | 2020-08-05 13:23 | HO.PM.IMPN ---
Subjective Subjective Date of Service: 08/05/20 Interval History: Patient seen and examined at bedside patient remains confused patient has some word-finding difficulty Review of Systems All other systems are reviewed and are negative Constitutional: Reports as per HPI and Reports no additional constitutional complaints Eyes: Reports as per HPI and Reports no additional eye complaints Reports system reviewed and no additional complaints, except as documented Cardiovascular: Reports as per HPI and Reports no additional cardiovascular complaints Respiratory: Reports as per HPI and Reports no additional respiratory complaints Gastrointestinal: Reports as per HPI and Reports no additional gastrointestinal complaints Genitourinary: Reports no additional female genitourinary complaints Musculoskeletal: Reports no additional musculoskeletal complaints Skin/Breast: Reports system reviewed and no additional complaints, except as docu Psychiatric: Reports no additional psychiatric complaints Endocrine: Reports no additional endocrine complaints Hematologic/Lymphatic: Reports no additional hematologic/lymphatic complaints Allergic/Immunologic: Reports no additional allergic/immunologic complaints Reports system reviewed and no additional complaints, except as documented and Reports Abnormal speech present Physical Exam Vital Signs: Vital Signs: Last Vital Signs Temp 98.2 F 08/05/20 10:59 Pulse 81 08/05/20 10:59 Resp 18 08/05/20 10:59 BP 151/72 H 08/05/20 10:59 Pulse Ox 96 08/05/20 10:59 Body Mass Index 28.5 Const: General: ill appearing Resp: Effort & Inspection: normal respiratory effort and able to speak in complete sentences Cardio: Rate: regular rate Rhythm: regular rhythm GI: Palpation (GI): Soft to palpation Auscultation: normal bowel sounds Skin: General skin exam: no rashes or lesions noted Neuro: Other: Not following neurological commands Extrem: General: Yes normal to inspection and Yes no pedal edema Objective Data Current Medications Generic Name Dose Route Start Last Admin Trade Name Freq PRN Reason Stop Dose Admin Acetaminophen 650 mg 08/03/20 23:16 08/05/20 03:28 Acetaminophen 325 Mg Tablet PO 650 mg Q6H PRN Administration Pain, Mild (Pain Scale 1-3) Hydrocodone Bitart/Acetaminophen 0.5 tab 08/03/20 23:16 08/05/20 04:29 Hydrocodone Bit/Acetam 5/325 Tablet PO 0.5 tab Q8H PRN Administration pain Ascorbic Acid 250 mg 08/04/20 09:00 08/05/20 10:06 Ascorbic Acid 500 Mg Tablet PO 250 mg DAILY THEO Administration Aspirin 81 mg 08/04/20 09:00 08/05/20 10:05 Aspirin Enteric Coated 81 Mg Tablet. PO 81 mg DAILY THEO Administration Docusate Sodium 100 mg 08/03/20 23:16 Docusate Sodium 100 Mg Capsule PO DAILY PRN Constipation Fluticasone/Vilanterol 1 puff 08/04/20 09:00 08/05/20 08:24 Fluticasone/Vilanterol 200/25 Blst.W.Dev INHALE 1 puff DAILY THEO Administration Heparin Sodium (Porcine) 5,000 unit 08/03/20 23:16 08/05/20 11:57 Heparin Sodium,Porcine 5,000 Unit/Ml Vial SUBCUT 5,000 unit Q12H THEO Administration Piperacillin Sod/Tazobactam 50 mls @ 100 mls/hr 08/03/20 23:16 08/05/20 12:54 Sod 3.375 gm/ Sodium Chloride IV Infused Q6H THEO Infusion Lactated Ringer's 1,000 mls @ 100 mls/hr 08/05/20 06:30 08/05/20 06:28 Lr IVCONT 100 mls/hr .Q10H THEO Administration Lisinopril 40 mg 08/04/20 09:00 08/05/20 10:06 Lisinopril 40 Mg Tablet PO 40 mg DAILY THEO Administration Protocol Pt Own: Rosuvastatin 1 each 08/04/20 21:00 08/05/20 12:54 5mg Tab PO Not Given BEDTIME THEO Omeprazole 20 mg 08/04/20 09:00 08/05/20 10:08 Omeprazole 20 Mg Capsule. PO 20 mg DAILY THEO Administration Pharmacy Consult 1 each 08/03/20 19:05 Consult Rx Perform Med Rec MISCELLANE ONCE PRN Consult order Pharmacy Consult 1 each 08/03/20 23:16 Consult Rx Vancomycin Dosing MISCELLANE DAILY PRN Consult order Promethazine HCl 12.5 mg 08/04/20 06:12 Promethazine Hcl 25 Mg Tablet PO QID PRN Nausea Sodium Chloride 3 ml 08/04/20 00:00 08/05/20 07:48 0.9 % Sodium Chloride Flush 3 Ml Syringe IVFLUSH 3 ml QSHIFT THEO Administration Sotalol HCl 80 mg 08/04/20 09:00 08/05/20 10:06 Sotalol Hcl 80 Mg Tablet PO 80 mg BID THEO Administration Labs CBC & Chem 7: 08/04/20 05:20 08/05/20 12:11 Microbiology Microbiology Results: Microbiology 08/03/20 23:00 Blood - Venous Blood Culture - Preliminary 08/03/20 23:00 Blood - Venous Blood Culture - Preliminary No growth after 24 hours. Assessment and Plan (1) Acute alteration in mental status: Status: Acute (2) COVID-19 virus infection: Status: Acute (3) Pneumonia: Status: Acute (4) Sepsis: Status: Acute Assessment and Plan: This is a 85-year-old female with past medical history as above who presents to the hospital with altered mentation and garbled speech per EMS as well as ED physician. Found to have COVID-19 positive and pneumonia Metabolic encephalopathy likely secondary to underlying COVID infection No focal deficit but noted to have word-finding difficulty CT head on admission shows no acute abnormality will get MRI brain to rule out stroke monitor mental status Biilateral pneumonia COVID positive continue antibiotic continue supportive management not requiring any oxygen CAD continue aspirin and sotalol Diiabetes mellitus Continue sliding scale insulin monitor blood glucose Hypertension Continue lisinopril DVT prophylaxis: Heparin subQ
[2020-08-05 16:29] LABS: Glucose, Whole Blood 116 mg/dL (60-115)
[2020-08-05] MEDS: Ketorolac Tromethamine 15 MG/ML VIAL IVPUSH (19:52)
[2020-08-05 20:58] LABS: Glucose, Whole Blood 113 mg/dL (60-115)
--- NOTE | 2020-08-05 21:41 | MHC.STROKE ---
Addendum entered by Anabel Anna RN 08/06/20 11:08: I MET WITH THE PATIENT TO PROVIDE STROKE EDUCATION, I REVIEWED THE PLAN OF CARE WITH HER AND EXPLAINED THAT SHE WAS ON ALL THE APPROPRIATE STROKE INTERVENTIONS. I REVIEWED THE SCREENSHOT OF THE MRI AND THE LOCATION OF HER STROKE. SHE IS SLIGHTLY DISCOURAGED ABOUT BEING IN THE HOSPITAL BUT SHE UNDERSTANDS SHE NEEDS TO BE HERE. I ANSWERED ALL OF HER QUESTIONS. I REVIEWED NEURO-EXAM BY DR RESENDIZ, HE IS RECOMMEDING AN ECHO, CTA H/N, AND LIPID PANEL, THE EMS RUN SHEET REVIEWED. LAST KNOWN WELL WAS 08/02/20 BETWEEN [id number]. SHE WAS DISCOVERED BY HER FAMILY THE SAME TIME EMS WAS DISPATCHED ON 08/03/20 AT 1746. STROKE ALERT CALLED IN BY [facility], DIRECT TO CT, NO BLEED. OUT OF THE WINDOW FOR TPA DUE TO DELAY IN ARRIVAL. SEE DR ROUSE'S EXAM (INITIAL NIHSS = 3) FOR LOC, APHASIA. SHE DID PASS THE SWALLOW SCREEN IN THE ED PRIOR TO ANY PO. I ALSO FOLLOWED UP WITH DR ROOT, AND JULIO C CUELLAR/ASHISH. RECOMMENDING PT EVAL PART OF THE STROKE WORK-UP. Original Note: Review MRI. Recommending Lipid Panel, Echo, Carotid US. Stroke education added. I will follow up in am.
[2020-08-06] VITALS (10 sets, daily range): BP systolic 119–179; BP diastolic 60–81; PULSE 70–84; RESP 16–20; TEMP 36.4–36.9; O2SAT 92–97
[2020-08-06] MEDS: Lactated Ringers 1,000 ML 100 ML IVCONT ×3 (04:39→20:33)
[2020-08-06] MEDS: Piperacillin Sodium/Tazobactam 3.375 GM in 0.9 % Sodium Chloride 50 ML IV ×4 (05:05→20:23)
[2020-08-06] MEDS: Aspirin Enteric Coated 81 MG TABLET.DR PO (07:05)
[2020-08-06] MEDS: Omeprazole 20 MG CAPSULE.DR PO (07:05)
[2020-08-06] MEDS: HYDROcodone Bit/Acetam 5/325 TABLET 0.5 TAB PO ×2 (07:05→14:21)
[2020-08-06] MEDS: Sotalol HCL 80 MG TABLET PO ×2 (07:06→20:23)
[2020-08-06] MEDS: Ascorbic Acid 500 MG TABLET 250 MG PO (07:06)
[2020-08-06] MEDS: 0.9 % Sodium Chloride Flush 3 ML SYRINGE IVFLUSH ×2 (07:07→15:57)
[2020-08-06] MEDS: Fluticasone/Vilanterol 200/25 BLST.W.DEV 1 PUFF INHALE (07:48)
[2020-08-06 07:55] LABS: Glucose, Whole Blood 107 mg/dL (60-115)
--- NOTE | 2020-08-06 09:39 | PM.NEUROCN ---
History of Present Illness Data of Consult Service Date: 08/06/20 Primary Care Provider: Unknown Physician 85 years old woman with underlying history of COPD and asthma who was brought to hospital with an episode of confusion and garbled speech. She had no recollection of what had happened stating that she did not know what had happened bring her to hospital. Apparently she was noted to be on the ground confused with garbled speech with no explanation. There was no mention of any convulsion or focal weakness at that time. Review of Systems Review of Systems: No recent cold or flu-like illness or trauma. [facility] Past Medical History Medical History Arthritis Asthma CAD (coronary artery disease) COPD (chronic obstructive pulmonary disease) COPD (chronic obstructive pulmonary disease) Cough Diabetes Diverticulitis DJD (degenerative joint disease) GERD (gastroesophageal reflux disease) High cholesterol Hypertension Family History Family History Father Heart disease Surgical History Surgical History H/O hernia repair H/O kyphoplasty H/O lumpectomy H/O: hysterectomy History of ankle surgery History of appendectomy History of arthroscopy History of bunionectomy History of cholecystectomy History of endometrial ablation Social History Social History Household Members: None Housing: House Unable to assess alcohol history related to: Unknown Alcohol intake: current Alcohol intake frequency: holidays/special occasions only Smoking Status: Never smoker Use of substances other than those prescribed or required for medical reasons: Unknown Currently Displaying Signs/Symptoms of Drug Intoxication Withdrawal: No Advance Directives: No Advance Directives Information Provided: No Do you have thoughts of harming others: None Do you have a plan to hurt others: No Plan Recently lost weight without trying: Unsure service: No Current occupational status: retired Meds Allergies Allergy/AdvReac Type Severity Reaction Status Date / Time azithromycin [From ZITHROMAX] Allergy Unknown THROAT RASH Verified 08/03/20 18:49 levofloxacin [From LEVAQUIN] Allergy Unknown UNKNOWN Verified 08/03/20 18:49 meperidine [Demerol] Allergy Unknown Palpitation Verified 08/03/20 18:49 s niacin [NIACIN] Allergy Unknown HIVES Verified 08/03/20 18:49 oxycodone [OXYCODONE] Allergy Unknown UNKNOWN Verified 08/03/20 18:49 tramadol [TRAMADOL] Allergy Unknown INCREASED Verified 08/03/20 18:49 BLOOD PRESSURE, NAUSEA morphine AdvReac Severe Unknown Verified 08/03/20 18:49 atorvastatin [From LIPITOR] AdvReac Intermediate ELEVATED Verified 08/03/20 18:49 LFT'S AND MUSCLE ACHES ondansetron AdvReac Unknown PALPITATION Verified 08/03/20 18:49 [From ZOFRAN ( S HYDROCHLORIDE)] Active Medications: Current Medications Generic Name Dose Route Start Last Admin Trade Name Freq PRN Reason Stop Dose Admin Acetaminophen 650 mg 08/03/20 23:16 08/05/20 03:28 Acetaminophen 325 Mg Tablet PO 650 mg Q6H PRN Administration Pain, Mild (Pain Scale 1-3) Hydrocodone Bitart/Acetaminophen 0.5 tab 08/03/20 23:16 08/06/20 07:05 Hydrocodone Bit/Acetam 5/325 Tablet PO 0.5 tab Q8H PRN Administration pain Ascorbic Acid 250 mg 08/04/20 09:00 08/06/20 07:06 Ascorbic Acid 500 Mg Tablet PO 250 mg DAILY THEO Administration Aspirin 81 mg 08/04/20 09:00 08/06/20 07:05 Aspirin Enteric Coated 81 Mg Tablet.Dr PO 81 mg DAILY THEO Administration Atorvastatin Calcium 40 mg 08/06/20 21:00 Atorvastatin Calcium 40 Mg Tablet PO BEDTIME THEO Docusate Sodium 100 mg 08/03/20 23:16 Docusate Sodium 100 Mg Capsule PO DAILY PRN Constipation Fluticasone/Vilanterol 1 puff 08/04/20 09:00 08/06/20 07:48 Fluticasone/Vilanterol 200/25 Blst.W.Dev INHALE 1 puff DAILY THEO Administration Heparin Sodium (Porcine) 5,000 unit 08/03/20 23:16 08/05/20 23:25 Heparin Sodium,Porcine 5,000 Unit/Ml Vial SUBCUT 5,000 unit Q12H THEO Administration Piperacillin Sod/Tazobactam 50 mls @ 100 mls/hr 08/03/20 23:16 08/06/20 05:41 Sod 3.375 gm/ Sodium Chloride IV Infused Q6H THEO Infusion Lactated Ringer's 1,000 mls @ 100 mls/hr 08/05/20 06:30 08/06/20 04:39 Lr IVCONT 100 mls/hr .Q10H THEO Administration Lisinopril 40 mg 08/04/20 09:00 08/06/20 07:05 Lisinopril 40 Mg Tablet PO 40 mg DAILY THEO Administration Protocol Pt Own: Rosuvastatin 1 each 08/04/20 21:00 08/05/20 20:58 5mg Tab PO 1 each BEDTIME THEO Administration Omeprazole 20 mg 08/04/20 09:00 08/06/20 07:05 Omeprazole 20 Mg Capsule.Dr PO 20 mg DAILY THEO Administration Pharmacy Consult 1 each 08/03/20 19:05 Consult Rx Perform Med Rec MISCELLANE ONCE PRN Consult order Pharmacy Consult 1 each 08/03/20 23:16 Consult Rx Vancomycin Dosing MISCELLANE DAILY PRN Consult order Promethazine HCl 12.5 mg 08/04/20 06:12 Promethazine Hcl 25 Mg Tablet PO QID PRN Nausea Sodium Chloride 3 ml 08/04/20 00:00 08/06/20 07:07 0.9 % Sodium Chloride Flush 3 Ml Syringe IVFLUSH 3 ml QSHIFT THEO Administration Sotalol HCl 80 mg 08/04/20 09:00 08/06/20 07:06 Sotalol Hcl 80 Mg Tablet PO 80 mg BID THEO Administration Home Medications Medication Instructions Recorded Confirmed Last Taken Type lisinopril 40 mg PO DAILY 06/28/20 08/03/20 08/02/20 History metformin 250 mg PO DAILY 06/28/20 08/03/20 08/02/20 History omega 5-qxj-cvo-fish oil [Fish Oil] 1 cap PO DAILY 06/28/20 08/03/20 08/02/20 History omeprazole 20 mg PO DAILY 06/28/20 08/03/20 08/02/20 History raloxifene 60 mg PO DAILY 06/28/20 08/03/20 08/02/20 History rosuvastatin 5 mg PO BEDTIME 06/28/20 08/03/20 08/02/20 History ascorbic acid (vitamin C) 500 mg 250 mg PO DAILY 07/13/20 08/03/20 08/02/20 History tablet aspirin 81 mg tablet,delayed 81 mg PO DAILY 07/13/20 08/03/20 08/02/20 History release budesonide-formoterol HFA 160 2 puff INHALATION BID 07/13/20 08/03/20 08/02/20 History mcg-4.5 mcg/actuation aerosol inhaler cholecalciferol (vitamin D3) 125 125 mcg PO DAILY 07/13/20 08/03/20 08/02/20 History mcg (5,000 unit) capsule flu vacc 2020-(67yr 0.5 ml IM DIRECTED 07/13/20 Unknown History up)-MF59C(PF) 60 mcg(15 mcgx4)/0.5 mL IM syringe sotalol 80 mg tablet 80 mg PO BID 07/13/20 08/03/20 08/02/20 History hydrocodone-acetaminophen 0.5 tab PO Q8H PRN 08/03/20 08/03/20 Unknown History promethazine 1 - 2 tab PO QID PRN 08/03/20 08/03/20 Unknown History Physical Exam Vital Signs: Vital Signs: Last Vital Signs Temp 98.1 F 08/06/20 08:16 Pulse 77 08/06/20 08:16 Resp 20 08/06/20 08:16 BP 168/78 H 08/06/20 08:00 Pulse Ox 97 08/06/20 08:16 Body Mass Index 28.5 She was alert and awake with normal spontaneity of speech fluency comprehension and weighed affect. Pupils were equal reactive to light and extraocular muscles were intact. Visual goins were full to confrontation. Face was symmetrical. There was no pronator drift. No tremor or asterixis was noted. Deep tendon reflexes were withdrawing with flexor plantars. There was no obvious visual or sensory extinction or visual field defect. Results Labs CBC & Chem 7: 08/04/20 05:20 08/05/20 12:11 Labs: BMP 08/05/20 12:11 Sodium 139 Potassium 3.4 Chloride 104 Carbon Dioxide 27 BUN 15 Creatinine 0.78 Calcium 8.1 L Her chest x-ray revealed bilateral infiltrate. MRI brain revealed an acute left posterior cerebral artery moderate size infarct. There were few bilateral chronic ischemic infarction of similar nature and moderate cerebral atrophy. EKG reveals sinus tachycardia Microbiology Microbiology Results: Microbiology 08/03/20 23:00 Blood - Venous Blood Culture - Preliminary No growth after 48 hours. 08/03/20 23:00 Blood - Venous Blood Culture - Preliminary Assessment and Plan (1) Acute cerebral infarction: Status: Acute 85 years old woman who came to hospital with change in mental status confusion and garbled speech. Reason for the initial presentation was somewhat unclear though her workup revealed that she had pneumonia and positive test for COVID. Her imaging revealed an acute embolic looking left posterior cerebral artery infarct. Recommendation at this time are to treat her lung pathology, continue anti-platelet agent, avoid hypotension, appropriate hydration, obtain an echocardiogram, and CTA of brain and neck. Fasting lipid profile is also recommended.
--- NOTE | 2020-08-06 09:40 | CA_ITS ---
Transthoracic Echocardiogram Patient (Last, First, Middle): Janeth Obrien A Gender: Female Date of : 1935 Age: 85 Procedure Date: 08/06/2020 Procedure Type: Transthoracic E[place]ocardiogram [place] [facility] [place]: 152.4 cm Weight: 65.77 kg BSA: 1.63 m2 Heart Rate: bpm BP: 122 / 68 mmHg Manager R D: Referring MD: Kash Johns MD [employer]'S Mate: Hola Valenzuela MD Symptoms: multiple infarct r/o embolism Study Quality: Fair ECG Rhythm: Sinus Conclusions: - 1. Normal LV systolic function with mild LVH with impaired relaxation filling pattern 2. Normal cardiac valvular Doppler 3. Mild fibrocalcific aortic valve changes noted 4. Normal RV systolic pressure 5. No gross pericardial effusion Findings Left Ventricle Normal left ventricular size and systolic function. There is mildly increased left ventricular wall thickness. The visually estimated ejection fraction is between 60-65%. Spectral Doppler is indicative of an impaired relaxation filling pattern. E/E prime ratio is between 8 and 15 consistent with indeterminate filling pressures. Right Ventricle Normal right ventricular cavity size and systolic function. Atria The left atrium is likely dilated. Interatrial shunt cannot be excluded. The right atrium was not well visualized. Aortic Valve There is mild calcification of the aortic valve. There is no aortic valve stenosis. There is no aortic valve regurgitation. Mitral Valve The mitral valve was not well visualized. There is trace mitral valve regurgitation. There is no mitral valve stenosis. Pulmonic Valve The pulmonic valve was not well visualized. Tricuspid Valve Likely normal tricuspid valve structure and function. There is mild tricuspid valve regurgitation. The right ventricular systolic pressure is normal. The right ventricular systolic pressure is 37 mmHg. There is no evidence of pulmonary hypertension. Great Vessels All visible segments of the aorta are normal in size. The pulmonary artery was not well visualized. Venous The inferior vena cava is normal in size and collapses greater than 50% with inspiration. Pericardium/Pleural There is no evidence of pericardial effusion. Prior Study Comparison No significant change compared to prior study dated: 01/07/2016. Recommendations, Care & Conclusions Recommend contrast study to evaluate intracardiac shunting. Measurements 2D Linear Measurements IVSd: 1.32 0.6-0.9/0.6-1.0 cm LVIDd: 3.84 3.9-5.3/4.2-5.9 cm LVIDd Index: 2.36 2.4-3.2/2.2-3.1 cm/m2 LVIDs: 2.44 2.0-3.6 cm LVPWd: 1.32 0.7-1.1 cm Ao Root: 3.20 2.1-3.5 cm LA Diam: 4.00 2.7-3.8/3.0-4.0 cm LAIDs Index: 2.45 1.5-2.3 cm/m2 LV Mass: 224.09 67-162/88-224 g LV Mass Index: 137.48 43-95/49-115 g/m2 LVOT Diam: 2.10 3.0+(-)1.3 cm Mitral Valve MV Pk E: 0.66 MV PK A: 1.13 MV Decel Time: 180.00 E/A: 0.60 E'Lateral: 5.42 E'Medial: 6.09 E/E' Med: 10.80 E/E' Lat: 12.10 PHT: 53.00 MVA PHT: 4.15 Decel Roane: 3.65 Aortic Valve AoV Pk Berry: 1.14 AoV Mn Berry: 0.89 AoV VTI: 0.28 AoV Pk Grad: 5.00 Aov Mn Grad: 4.00 ROLANDO Cont.VTI: 3.02 LVOT LVOT Pk Berry: 1.29 LVOT Mn Berry: 0.86 LVOT VTI: 0.25 LVOT Pk Grad: 7.00 LVOT Mn Grad: 4.00 LVOT Diam: 2.10 LVOT Area: 3.46 Diastolic Function MV Pk E: 0.66 MV Pk A: 1.13 E/A: 0.60 E'Medial: 6.09 E/E' Med: 10.80 E' Laterial: 5.42 E/E' Lat: 12.10 Tricuspid Valve TR Pk Berry: 2.92 TR Pk Grad: 34.00 RA Press: 3.00 RVSP: 37.00 Great Vessels Aorta Ao Root-2D: 3.20 2.0-3.7 cm Ao Asc: 3.00 2.1-3.4 cm Pulmonary Valve PV Pk Berry: 0.83 Peak PV Grad: 3.00 Updated in Other Vendor System with Status of Final Hola Valenzuela MD electronically signed on 08/06/2020 3:57:33 PM with status of Final
--- NOTE | 2020-08-06 11:05 | MHC.CM.PN ---
Per ROUNDS discussion, Patient is a new CVA and will require a PT eval to assist with dc planning (home with private REVIEW SCHEDULING COORDINATOR, strong family support and new [facility] VS STR @ [facility], where she has been before, VS Acute Rehab after CVA, if recommended). CM will follow to secure final dc plan.
[2020-08-06] MEDS: Heparin Sodium,Porcine 5,000 UNIT/ML VIAL 5000 UNIT SUBCUT ×2 (11:19→20:23)
[2020-08-06 11:43] LABS: Glucose, Whole Blood 131 mg/dL (60-115)
[2020-08-06] MEDS: iohexoL 350 MG/ML 100 ML INFUS..BTL 70 ML IV (12:38)
--- NOTE | 2020-08-06 15:19 | HO.PM.IMPN ---
Subjective Subjective Date of Service: 08/06/20 Interval History: Patient seen and examined at bedside patient remains confused patient has some word-finding difficulty Review of Systems All other systems are reviewed and are negative Constitutional: Reports as per HPI and Reports no additional constitutional complaints Eyes: Reports as per HPI and Reports no additional eye complaints Reports system reviewed and no additional complaints, except as documented Cardiovascular: Reports as per HPI and Reports no additional cardiovascular complaints Respiratory: Reports as per HPI and Reports no additional respiratory complaints Gastrointestinal: Reports as per HPI and Reports no additional gastrointestinal complaints Genitourinary: Reports no additional female genitourinary complaints Musculoskeletal: Reports no additional musculoskeletal complaints Skin/Breast: Reports system reviewed and no additional complaints, except as docu Psychiatric: Reports no additional psychiatric complaints Endocrine: Reports no additional endocrine complaints Hematologic/Lymphatic: Reports no additional hematologic/lymphatic complaints Allergic/Immunologic: Reports no additional allergic/immunologic complaints Reports system reviewed and no additional complaints, except as documented and Reports Abnormal speech present Physical Exam Vital Signs: Vital Signs: Last Vital Signs Temp 98.5 F 08/06/20 12:00 Pulse 71 08/06/20 12:00 Resp 20 08/06/20 12:00 BP 179/74 H 08/06/20 12:00 Pulse Ox 96 08/06/20 12:00 Body Mass Index 28.5 Const: General: ill appearing Eyes: Other: Not following command for me to be able to assess neurology function of eyes Resp: Effort & Inspection: normal respiratory effort and able to speak in complete sentences Cardio: Rate: regular rate Rhythm: regular rhythm GI: Palpation (GI): Soft to palpation Auscultation: normal bowel sounds Skin: General skin exam: no rashes or lesions noted Neuro: Other: Not following neurological commands Extrem: General: Yes normal to inspection and Yes no pedal edema Objective Data Current Medications Generic Name Dose Route Start Last Admin Trade Name Freq PRN Reason Stop Dose Admin Acetaminophen 650 mg 08/03/20 23:16 08/05/20 03:28 Acetaminophen 325 Mg Tablet PO 650 mg Q6H PRN Administration Pain, Mild (Pain Scale 1-3) Hydrocodone Bitart/Acetaminophen 0.5 tab 08/03/20 23:16 08/06/20 14:21 Hydrocodone Bit/Acetam 5/325 Tablet PO 0.5 tab Q8H PRN Administration pain Ascorbic Acid 250 mg 08/04/20 09:00 08/06/20 07:06 Ascorbic Acid 500 Mg Tablet PO 250 mg DAILY THEO Administration Aspirin 81 mg 08/04/20 09:00 08/06/20 07:05 Aspirin Enteric Coated 81 Mg Tablet. PO 81 mg DAILY THEO Administration Atorvastatin Calcium 40 mg 08/06/20 21:00 Atorvastatin Calcium 40 Mg Tablet PO BEDTIME THEO Docusate Sodium 100 mg 08/03/20 23:16 Docusate Sodium 100 Mg Capsule PO DAILY PRN Constipation Fluticasone/Vilanterol 1 puff 08/04/20 09:00 08/06/20 07:48 Fluticasone/Vilanterol 200/25 Blst.W.Dev INHALE 1 puff DAILY THEO Administration Heparin Sodium (Porcine) 5,000 unit 08/03/20 23:16 08/06/20 11:19 Heparin Sodium,Porcine 5,000 Unit/Ml Vial SUBCUT 5,000 unit Q12H THEO Administration Piperacillin Sod/Tazobactam 50 mls @ 100 mls/hr 08/03/20 23:16 08/06/20 11:53 Sod 3.375 gm/ Sodium Chloride IV Infused Q6H THEO Infusion Lactated Ringer's 1,000 mls @ 100 mls/hr 08/05/20 06:30 08/06/20 13:09 Lr IVCONT 100 mls/hr .Q10H THEO Administration Lisinopril 40 mg 08/04/20 09:00 08/06/20 07:05 Lisinopril 40 Mg Tablet PO 40 mg DAILY THEO Administration Protocol Pt Own: Rosuvastatin 1 each 08/04/20 21:00 08/05/20 20:58 5mg Tab PO 1 each BEDTIME THEO Administration Omeprazole 20 mg 08/04/20 09:00 08/06/20 07:05 Omeprazole 20 Mg Capsule. PO 20 mg DAILY THEO Administration Pharmacy Consult 1 each 08/03/20 19:05 Consult Rx Perform Med Rec MISCELLANE ONCE PRN Consult order Pharmacy Consult 1 each 08/03/20 23:16 Consult Rx Vancomycin Dosing MISCELLANE DAILY PRN Consult order Promethazine HCl 12.5 mg 08/04/20 06:12 Promethazine Hcl 25 Mg Tablet PO QID PRN Nausea Sodium Chloride 3 ml 08/04/20 00:00 08/06/20 07:07 0.9 % Sodium Chloride Flush 3 Ml Syringe IVFLUSH 3 ml QSHIFT THEO Administration Sotalol HCl 80 mg 08/04/20 09:00 08/06/20 07:06 Sotalol Hcl 80 Mg Tablet PO 80 mg BID THEO Administration Labs CBC & Chem 7: 08/04/20 05:20 08/05/20 12:11 Microbiology Microbiology Results: Microbiology 08/03/20 23:00 Blood - Venous Blood Culture - Final Streptococcus viridans group 08/03/20 23:00 Blood - Venous Blood Culture - Preliminary No growth after 48 hours. Assessment and Plan (1) Acute alteration in mental status: Status: Acute (2) COVID-19 virus infection: Status: Acute (3) Pneumonia: Status: Acute (4) Sepsis: Status: Acute Assessment and Plan: This is a 85-year-old female with past medical history as above who presents to the hospital with altered mentation and garbled speech per EMS as well as ED physician. Found to have COVID-19 positive and pneumonia Acute CVA MRI brain shows multiple acute infarcts neurology consulted recommended CTA continue aspirin, start statin will check echocardiogram PT OT consult toxic Metabolic encephalopathy likely secondary to underlying COVID infection and acute CVA CT head on admission shows no acute abnormality monitor mental status Biilateral pneumonia COVID positive continue antibiotic continue supportive management not requiring any oxygen CAD continue aspirin and sotalol Diiabetes mellitus Continue sliding scale insulin monitor blood glucose Hypertension Continue lisinopril DVT prophylaxis: Heparin subQ
[2020-08-06 16:52] LABS: Glucose, Whole Blood 128 mg/dL (60-115)
[2020-08-06 20:43] LABS: Glucose, Whole Blood 136 mg/dL (60-115)
[2020-08-07] VITALS (9 sets, daily range): BP systolic 133–195; BP diastolic 79–93; PULSE 76–91; RESP 18–20; TEMP 36.1–36.6; O2SAT 94–98
[2020-08-07] MEDS: Piperacillin Sodium/Tazobactam 3.375 GM in 0.9 % Sodium Chloride 50 ML IV ×2 (03:38→09:53)
[2020-08-07 07:05] LABS: Cholesterol 100 mg/dL; HDL Cholesterol 27 mg/dL; LDL Cholesterol Calculated 46 mg/dl; Triglycerides 137 mg/dL
[2020-08-07 07:25] LABS: Glucose, Whole Blood 131 mg/dL (60-115)
[2020-08-07] MEDS: Fluticasone/Vilanterol 200/25 BLST.W.DEV 1 PUFF INHALE (08:13)
[2020-08-07 08:33] LABS: MANUAL DIFF FLAG NO
[2020-08-07 08:41] LABS: Basophils Percent Auto 0.4 % (0-2); Eosinophils Absolute Auto 0.2 X10*3/uL (0.0-0.4); Eosinophils Percent Auto 3.6 % (0-4); Hemoglobin 11.2 g/dl (12.0-16.0); Imm Gran Abs Auto 0.03 X10*3/uL (0.00-0.03); Imm Gran Pct Auto 0.4 % (0.0-0.4); Lymphocytes Absolute Auto 1.1 X10*3/uL (1.2-4.9); Lymphocytes Percent Auto 16.5 % (20-40); Mean Corpuscular HGB Conc 33.9 g/dl (31.0-35.0); Mean Corpuscular Hemoglobin 31.7 pg (27.0-33.0); Mean Corpuscular Volume 93.5 fL (80-98); Mean Platelet Volume 10.5 fL (9.4-12.3); Monocytes Absolute Auto 0.6 X10*3/uL (0.1-1.2); Monocytes Percent Auto 9.4 % (2-11); Neutrophils Absolute Auto 4.7 X10*3/uL (2.0-8.3); Neutrophils Percent Auto 69.7 % (45-73); Platelet Count 181 X10*3/uL (160-400); Red Blood Count 3.53 X10*6/uL (4.20-5.50); Red Cell Distribution Width 14.2 % (11.0-16.0); White Blood Count 6.7 X10*3/uL (4.8-10.8)
[2020-08-07 08:55] LABS: Anion Gap 13 (12-20); Blood Urea Nitrogen 7 mg/dL (9-16); Calcium 7.5 mg/dL (8.4-10.2); Carbon Dioxide 25 mmol/L (22-29); Chloride 105 mmol/L (96-108); Creatinine Clr Calc Pharmacy 58.3; Estimated Glomerular Filt Rate > 60; Glucose Random 134 mg/dL (60-115); Potassium 2.9 mmol/L (3.3-5.1); Sodium 140 mmol/L (135-145)
[2020-08-07] MEDS: Lactated Ringers 1,000 ML 100 ML IVCONT ×2 (09:51→20:38)
[2020-08-07] MEDS: Omeprazole 20 MG CAPSULE.DR PO (09:52)
[2020-08-07] MEDS: Sotalol HCL 80 MG TABLET PO ×2 (09:52→20:38)
[2020-08-07] MEDS: Aspirin Enteric Coated 81 MG TABLET.DR PO (09:52)
[2020-08-07] MEDS: Ascorbic Acid 500 MG TABLET 250 MG PO (09:52)
[2020-08-07] MEDS: Heparin Sodium,Porcine 5,000 UNIT/ML VIAL 5000 UNIT SUBCUT (09:53)
--- NOTE | 2020-08-07 10:27 | HO.PM.IMPN ---
Subjective Subjective Date of Service: 08/07/20 Interval History: Patient seen and examined at bedside patient confusion improving Review of Systems All other systems are reviewed and are negative Constitutional: Reports no additional constitutional complain Cardiovascular: Reports no additional cardiovascular complaints Respiratory: Reports no additional respiratory complaints Gastrointestinal: Reports no additional gastrointestinal complaints Endocrine: Reports no additional endocrine complaints Hematologic/Lymphatic: Reports no additional hematologic/lymphatic complaints Allergic/Immunologic: Reports no additional allergic/immunologic complaints Reports system reviewed and no additional complaints, except as documented and Reports Abnormal speech present Neurologic Neurologic: Reports confusion Psychiatric Psychiatric: Reports confusion Physical Exam Vital Signs: Vital Signs: Last Vital Signs Temp 97.8 F 08/07/20 07:23 Pulse 91 08/07/20 07:23 Resp 18 08/07/20 07:23 BP 133/93 H 08/07/20 07:23 Pulse Ox 95 08/07/20 07:23 Body Mass Index 28.5 Const: General: no acute distress and confusion Orientation/consciousness: confusion Resp: Effort & Inspection: normal respiratory effort and able to speak in complete sentences Cardio: Rate: regular rate Rhythm: regular rhythm GI: Palpation (GI): Soft to palpation Auscultation: normal bowel sounds Skin: General skin exam: no rashes or lesions noted Neuro: Other: Not following neurological commands General: confusion Extrem: General: Yes normal to inspection and Yes no pedal edema Objective Data Current Medications Generic Name Dose Route Start Last Admin Trade Name Freq PRN Reason Stop Dose Admin Acetaminophen 650 mg 08/03/20 23:16 08/05/20 03:28 Acetaminophen 325 Mg Tablet PO 650 mg Q6H PRN Administration Pain, Mild (Pain Scale 1-3) Hydrocodone Bitart/Acetaminophen 0.5 tab 08/03/20 23:16 08/06/20 14:21 Hydrocodone Bit/Acetam 5/325 Tablet PO 0.5 tab Q8H PRN Administration pain Ascorbic Acid 250 mg 08/04/20 09:00 08/07/20 09:52 Ascorbic Acid 500 Mg Tablet PO 250 mg DAILY THEO Administration Aspirin 81 mg 08/04/20 09:00 08/07/20 09:52 Aspirin Enteric Coated 81 Mg Tablet. PO 81 mg DAILY THEO Administration Docusate Sodium 100 mg 08/03/20 23:16 Docusate Sodium 100 Mg Capsule PO DAILY PRN Constipation Fluticasone/Vilanterol 1 puff 08/04/20 09:00 08/07/20 08:13 Fluticasone/Vilanterol 200/25 Blst.W.Dev INHALE 1 puff DAILY THEO Administration Heparin Sodium (Porcine) 5,000 unit 08/03/20 23:16 08/07/20 09:53 Heparin Sodium,Porcine 5,000 Unit/Ml Vial SUBCUT 5,000 unit Q12H THEO Administration Piperacillin Sod/Tazobactam 50 mls @ 100 mls/hr 08/03/20 23:16 08/07/20 09:53 Sod 3.375 gm/ Sodium Chloride IV 100 mls/hr Q6H THEO Administration Lactated Ringer's 1,000 mls @ 100 mls/hr 08/05/20 06:30 08/07/20 09:51 Lr IVCONT 100 mls/hr .Q10H THEO Administration Lisinopril 40 mg 08/04/20 09:00 08/07/20 09:52 Lisinopril 40 Mg Tablet PO 40 mg DAILY THEO Administration Protocol Pt Own: Rosuvastatin 1 each 08/04/20 21:00 08/06/20 20:24 5mg Tab PO 1 each BEDTIME THEO Administration Omeprazole 20 mg 08/04/20 09:00 08/07/20 09:52 Omeprazole 20 Mg Capsule. PO 20 mg DAILY THEO Administration Pharmacy Consult 1 each 08/03/20 19:05 Consult Rx Perform Med Rec MISCELLANE ONCE PRN Consult order Pharmacy Consult 1 each 08/03/20 23:16 Consult Rx Vancomycin Dosing MISCELLANE DAILY PRN Consult order Promethazine HCl 12.5 mg 08/04/20 06:12 Promethazine Hcl 25 Mg Tablet PO QID PRN Nausea Sodium Chloride 3 ml 08/04/20 00:00 08/07/20 09:52 0.9 % Sodium Chloride Flush 3 Ml Syringe IVFLUSH Not Given QSHIFT THEO Sotalol HCl 80 mg 08/04/20 09:00 08/07/20 09:52 Sotalol Hcl 80 Mg Tablet PO 80 mg BID THEO Administration Labs CBC & Chem 7: 08/07/20 06:20 08/07/20 06:07 Microbiology Microbiology Results: Microbiology 08/03/20 23:00 Blood - Venous Blood Culture - Final Streptococcus viridans group 08/03/20 23:00 Blood - Venous Blood Culture - Preliminary No growth after 48 hours. Assessment and Plan (1) Acute alteration in mental status: Status: Acute (2) COVID-19 virus infection: Status: Acute (3) Pneumonia: Status: Acute (4) Sepsis: Status: Acute Assessment and Plan: This is a 85-year-old female with past medical history as above who presents to the hospital with altered mentation and garbled speech per EMS as well as ED physician. Found to have COVID-19 positive and pneumonia Acute CVA MRI brain shows few cortical acute infarcts neurology consulted recommended CTA CTA shows no significant stenosis continue aspirin lipid profile was done LDL in 46 cholestrol 100 statins stopped PTconsult Toxic Metabolic encephalopathy likely secondary to underlying COVID infection and acute CVA CT head on admission shows no acute abnormality monitor mental status Biilateral pneumonia COVID positive continue Zosyn continue supportive management not requiring any oxygen 1 set of blood culture growing strep viridans source not clear probabaly contaminatant will send repeat blood culture will get ID consult follow-up culture CAD continue aspirin History of tachycardia atrial tachycardia on monitor given multiple infarct will get cardiology consult echo cardiogram done shows normal EF Diiabetes mellitus Continue sliding scale insulin monitor blood glucose Hypertension Continue lisinopril DVT prophylaxis: Heparin subQ
[2020-08-07 11:17] LABS: Anion Gap 12 (12-20); Blood Urea Nitrogen 6 mg/dL (9-16); Calcium 7.8 mg/dL (8.4-10.2); Carbon Dioxide 24 mmol/L (22-29); Chloride 105 mmol/L (96-108); Creatinine Clr Calc Pharmacy 58.3; Estimated Glomerular Filt Rate > 60; Glucose Random 150 mg/dL (60-115); Sodium 138 mmol/L (135-145)
--- NOTE | 2020-08-07 11:19 | PM.CNCAR ---
History of Present Illness History of Present Illness Date of Service: 08/07/20 Requesting physician: Kash Johns Consult reason: other (Embolic CVA) Chief complaint: SEPSIS, PNA Narrative: This is an inter professional consult reviewing the chart requested for patient having what appears to be on brain MRI multiple embolic CVA. Requested from Cardiology perspective for consideration of oral anticoagulation therapy. History obtained from the chart. Patient admitted with altered mental status noted to be COVID positive and subsequently due to her focal neurologic speech disturbances was undergoing imaging. 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 In no obvious vascular lesions to explain the same. Patient from the chart has prior history of tachycardia of unclear etiology question atrial tachycardia/atrial flutter. Including hypertension diabetes prior CAD and advanced age for atrial fibrillation. No documented atrial fibrillation during this hospitalization Review of Systems Review of Systems: Yes Other (Inter professional consult) [facility] Past Medical History Medical History Arthritis Asthma CAD (coronary artery disease) COPD (chronic obstructive pulmonary disease) COPD (chronic obstructive pulmonary disease) Cough Diabetes Diverticulitis DJD (degenerative joint disease) GERD (gastroesophageal reflux disease) High cholesterol Hypertension Family History Family History Father Heart disease Surgical History Surgical History H/O hernia repair H/O kyphoplasty H/O lumpectomy H/O: hysterectomy History of ankle surgery History of appendectomy History of arthroscopy History of bunionectomy History of cholecystectomy History of endometrial ablation Social History Social History Household Members: None Housing: House Unable to assess alcohol history related to: Unknown Alcohol intake: current Alcohol intake frequency: holidays/special occasions only Smoking Status: Never smoker Use of substances other than those prescribed or required for medical reasons: Unknown Currently Displaying Signs/Symptoms of Drug Intoxication Withdrawal: No Advance Directives: No Advance Directives Information Provided: No Do you have thoughts of harming others: None Do you have a plan to hurt others: No Plan Recently lost weight without trying: Unsure service: No Current occupational status: retired Meds Allergies Allergy/AdvReac Type Severity Reaction Status Date / Time azithromycin [From THERONTHROMAX] Allergy Unknown THROAT RASH Verified 08/03/20 18:49 levofloxacin [From LEVAQUIN] Allergy Unknown UNKNOWN Verified 08/03/20 18:49 meperidine [Demerol] Allergy Unknown Palpitation Verified 08/03/20 18:49 s niacin [NIACIN] Allergy Unknown HIVES Verified 08/03/20 18:49 oxycodone [OXYCODONE] Allergy Unknown UNKNOWN Verified 08/03/20 18:49 tramadol [TRAMADOL] Allergy Unknown INCREASED Verified 08/03/20 18:49 BLOOD PRESSURE, NAUSEA morphine AdvReac Severe Unknown Verified 08/03/20 18:49 atorvastatin [From LIPITOR] AdvReac Intermediate ELEVATED Verified 08/03/20 18:49 LFT'S AND MUSCLE ACHES ondansetron AdvReac Unknown PALPITATION Verified 08/03/20 18:49 [From ZOFRAN ( S HYDROCHLORIDE)] Active Medications: Current Medications Generic Name Dose Route Start Last Admin Trade Name Freq PRN Reason Stop Dose Admin Acetaminophen 650 mg 08/03/20 23:16 08/05/20 03:28 Acetaminophen 325 Mg Tablet PO 650 mg Q6H PRN Administration Pain, Mild (Pain Scale 1-3) Hydrocodone Bitart/Acetaminophen 0.5 tab 08/03/20 23:16 08/06/20 14:21 Hydrocodone Bit/Acetam 5/325 Tablet PO 0.5 tab Q8H PRN Administration pain Ascorbic Acid 250 mg 08/04/20 09:00 08/07/20 09:52 Ascorbic Acid 500 Mg Tablet PO 250 mg DAILY THEO Administration Aspirin 81 mg 08/04/20 09:00 08/07/20 09:52 Aspirin Enteric Coated 81 Mg Tablet.Dr PO 81 mg DAILY THEO Administration Docusate Sodium 100 mg 08/03/20 23:16 Docusate Sodium 100 Mg Capsule PO DAILY PRN Constipation Fluticasone/Vilanterol 1 puff 08/04/20 09:00 08/07/20 08:13 Fluticasone/Vilanterol 200/25 Blst.W.Dev INHALE 1 puff DAILY THEO Administration Heparin Sodium (Porcine) 5,000 unit 08/03/20 23:16 08/07/20 09:53 Heparin Sodium,Porcine 5,000 Unit/Ml Vial SUBCUT 5,000 unit Q12H THEO Administration Piperacillin Sod/Tazobactam 50 mls @ 100 mls/hr 08/03/20 23:16 08/07/20 11:13 Sod 3.375 gm/ Sodium Chloride IV Infused Q6H THEO Infusion Lactated Ringer's 1,000 mls @ 100 mls/hr 08/05/20 06:30 08/07/20 09:51 Lr IVCONT 100 mls/hr .Q10H THEO Administration Lisinopril 40 mg 08/04/20 09:00 08/07/20 09:52 Lisinopril 40 Mg Tablet PO 40 mg DAILY THEO Administration Protocol Pt Own: Rosuvastatin 1 each 08/04/20 21:00 08/06/20 20:24 5mg Tab PO 1 each BEDTIME THEO Administration Omeprazole 20 mg 08/04/20 09:00 08/07/20 09:52 Omeprazole 20 Mg Capsule. PO 20 mg DAILY THEO Administration Pharmacy Consult 1 each 08/03/20 19:05 Consult Rx Perform Med Rec MISCELLANE ONCE PRN Consult order Pharmacy Consult 1 each 08/03/20 23:16 Consult Rx Vancomycin Dosing MISCELLANE DAILY PRN Consult order Promethazine HCl 12.5 mg 08/04/20 06:12 Promethazine Hcl 25 Mg Tablet PO QID PRN Nausea Sodium Chloride 3 ml 08/04/20 00:00 08/07/20 09:52 0.9 % Sodium Chloride Flush 3 Ml Syringe IVFLUSH Not Given QSHIFT [facility] Sotalol HCl 80 mg 08/04/20 09:00 08/07/20 09:52 Sotalol Hcl 80 Mg Tablet PO 80 mg BID THEO Administration Home Medications Medication Instructions Recorded Confirmed Last Taken Type lisinopril 40 mg PO DAILY 06/28/20 08/03/20 08/02/20 History metformin 250 mg PO DAILY 06/28/20 08/03/20 08/02/20 History omega 4-dno-ydf-fish oil [Fish Oil] 1 cap PO DAILY 06/28/20 08/03/20 08/02/20 History omeprazole 20 mg PO DAILY 06/28/20 08/03/20 08/02/20 History raloxifene 60 mg PO DAILY 06/28/20 08/03/20 08/02/20 History rosuvastatin 5 mg PO BEDTIME 06/28/20 08/03/2021 History ascorbic acid (vitamin C) 500 mg 250 mg PO DAILY 07/13/20 08/03/20 08/02/20 History tablet aspirin 81 mg tablet,delayed 81 mg PO DAILY 07/13/20 08/03/20 08/02/20 History release budesonide-formoterol HFA 160 2 puff INHALATION BID 07/13/20 08/03/20 08/02/20 History mcg-4.5 mcg/actuation aerosol inhaler cholecalciferol (vitamin D3) 125 125 mcg PO DAILY 07/13/20 08/03/20 08/02/20 History mcg (5,000 unit) capsule flu vacc (65yr 0.5 ml IM DIRECTED 07/13/20 Unknown History up)-MF59C(PF) 60 mcg(15 mcgx4)/0.5 mL IM syringe sotalol 80 mg tablet 80 mg PO BID 07/13/20 08/03/20 08/02/20 History hydrocodone-acetaminophen 0.5 tab PO Q8H PRN 08/03/20 08/03/20 Unknown History promethazine 1 - 2 tab PO QID PRN 08/03/20 08/03/20 Unknown History Physical Exam Vital Signs: Vital Signs: Last Vital Signs Temp 97 F 08/07/20 10:53 Pulse 77 08/07/20 10:53 Resp 18 08/07/20 10:53 BP 170/82 H 08/07/20 10:53 Pulse Ox 96 08/07/20 10:53 Body Mass Index 28.5 Inter professional consult and was deferred Results Labs and Meds Result diagrams: 08/07/20 06:20 08/07/20 10:41 Lab results: Laboratory Results - last 24 hr 08/06/20 08/06/20 08/06/20 11:24 15:26 19:18 WBC RBC Hgb Hct MCV MCH MCHC RDW Plt Count MPV Immature Gran % (Auto) Neut % (Auto) Lymph % (Auto) [place] % (Auto) Eos % (Auto) Baso % (Auto) Lymph # (Auto) [place] # (Auto) Eos # (Auto) Baso # (Auto) Abs Immat Gran (auto) Absolute Neuts (auto) Absolute Nucleated RBC Nucleated RBC % (auto) Sodium Potassium Chloride Carbon Dioxide Anion Gap BUN Creatinine Estim Creat Clear Calc Estimated GFR POC Glucose 131 H 128 H 136 H Random Glucose Calcium Triglycerides Cholesterol LDL Cholesterol, Calc HDL Cholesterol 08/07/20 08/07/20 08/07/20 06:07 06:07 06:20 WBC 6.7 RBC 3.53 L Hgb 11.2 L Hct 33.0 L MCV 93.5 MCH 31.7 MCHC 33.9 RDW 14.2 Plt Count 181 MPV 10.5 Immature Gran % (Auto) 0.4 Neut % (Auto) 69.7 Lymph % (Auto) 16.5 L [place] % (Auto) 9.4 Eos % (Auto) 3.6 Baso % (Auto) 0.4 Lymph # (Auto) 1.1 L [place] # (Auto) 0.6 Eos # (Auto) 0.2 Baso # (Auto) 0.0 Abs Immat Gran (auto) 0.03 Absolute Neuts (auto) 4.7 Absolute Nucleated RBC 0.000 Nucleated RBC % (auto) 0.0 Sodium 140 Potassium 2.9 L Chloride 105 Carbon Dioxide 25 Anion Gap 13 BUN 7 L D Creatinine 0.62 Estim Creat Clear Calc 58.3 Estimated GFR > 60 POC Glucose Random Glucose 134 H Calcium 7.5 L D Triglycerides 137 Cholesterol 100 LDL Cholesterol, Calc 46 HDL Cholesterol 27 08/07/20 08/07/20 07:22 10:41 WBC RBC Hgb Hct MCV MCH MCHC RDW Plt Count MPV Immature Gran % (Auto) Neut % (Auto) Lymph % (Auto) [place] % (Auto) Eos % (Auto) Baso % (Auto) Lymph # (Auto) [place] # (Auto) Eos # (Auto) Baso # (Auto) Abs Immat Gran (auto) Absolute Neuts (auto) Absolute Nucleated RBC Nucleated RBC % (auto) Sodium 138 Potassium 3.0 L Chloride 105 Carbon Dioxide 24 Anion Gap 12 BUN 6 L Creatinine 0.62 Estim Creat Clear Calc 58.3 Estimated GFR > 60 POC Glucose 131 H Random Glucose 150 H Calcium 7.8 L Triglycerides Cholesterol LDL Cholesterol, Calc HDL Cholesterol Imaging Radiologist's impression: Impressions Head/Neck CTA 08/06/20 12:25 IMPRESSION: There are numerous chronic small vessel ischemic changes within the periventricular white matter. Otherwise unremarkable examination. The known small acute cortical infarct involving left inferior parietal lobule is not well assessed on this examination. Otherwise no new infarct and no acute intracranial hemorrhage. There is no stenosis of the cervical carotid or vertebral arteries. No high-grade stenosis or proximal occlusion is visualized within the intracranial vessels. Although only partially included within the [id number] of this examination there are eccentric ill-defined airspace opacities visualized within the apices of both lungs. IMPRESSION: There are a few small acute cortical infarcts involving the left inferior parietal lobule. Scattered chronic small vessel ischemic changes are also visualized within the periventricular white matter. No acute intracranial hemorrhage. Of note there is a lobulated 1.9 cm lesion left within the superficial lobe of the left parotid gland, the etiology of which is uncertain on the basis of this examination. This may represent a varix, enlarged lymph node, or perhaps a primary intraparotid neoplasm. Assessment and Plan (1) Acute cerebral infarction: Status: Acute Given prior history of tachycardia and high likelihood of atrial arrhythmias given her multiple risk including advanced age with high risk for thromboembolic complication given her high CHADSVASc and with embolic CVA I think it is appropriate to start oral anticoagulation therapy. With her COVID infection. Would require outpatient prolonged monitoring with implantable loop recorder which will be scheduled once patient improves. Consider using direct oral anticoagulant agent such as Eliquis. Will sign of the case and follow up as outpatient for implantable loop recorder placement
[2020-08-07] MEDS: Potassium Chloride ER 20 MEQ TAB.ER.PRT 40 MEQ PO (12:46)
--- NOTE | 2020-08-07 13:39 | W.PM.IDCN ---
History of Present Illness Data of Consult Service Date: 08/07/20 Requesting physician: Kash Johns Primary Care Provider: Unknown Physician HPI Reason for consult: bacteremia She presents to hospital with weakness and shortness of breath She has strep viridans reported on 08/03 She has unremarkable echo Review of Systems Review of Systems: Yes all other systems are reviewed and are negative [facility] Past Medical History Medical History Arthritis Asthma CAD (coronary artery disease) COPD (chronic obstructive pulmonary disease) COPD (chronic obstructive pulmonary disease) Cough Diabetes Diverticulitis DJD (degenerative joint disease) GERD (gastroesophageal reflux disease) High cholesterol Hypertension Family History Family History Father Heart disease Family history: reviewed and not pertinent Surgical History Surgical History H/O hernia repair H/O kyphoplasty H/O lumpectomy H/O: hysterectomy History of ankle surgery History of appendectomy History of arthroscopy History of bunionectomy History of cholecystectomy History of endometrial ablation Social History Social History Household Members: None Housing: House Unable to assess alcohol history related to: Unknown Alcohol intake: current Alcohol intake frequency: holidays/special occasions only Smoking Status: Never smoker Use of substances other than those prescribed or required for medical reasons: Unknown Currently Displaying Signs/Symptoms of Drug Intoxication Withdrawal: No Advance Directives: No Advance Directives Information Provided: No Do you have thoughts of harming others: None Do you have a plan to hurt others: No Plan Recently lost weight without trying: Unsure service: No Current occupational status: retired Meds Allergies Allergy/AdvReac Type Severity Reaction Status Date / Time azithromycin [From ZITHROMAX] Allergy Unknown THROAT RASH Verified 08/03/20 18:49 levofloxacin [From LEVAQUIN] Allergy Unknown UNKNOWN Verified 08/03/20 18:49 meperidine [Demerol] Allergy Unknown Palpitation Verified 08/03/20 18:49 s niacin [NIACIN] Allergy Unknown HIVES Verified 08/03/20 18:49 oxycodone [OXYCODONE] Allergy Unknown UNKNOWN Verified 08/03/20 18:49 tramadol [TRAMADOL] Allergy Unknown INCREASED Verified 08/03/20 18:49 BLOOD PRESSURE, NAUSEA morphine AdvReac Severe Unknown Verified 08/03/20 18:49 atorvastatin [From LIPITOR] AdvReac Intermediate ELEVATED Verified 08/03/20 18:49 LFT'S AND MUSCLE ACHES ondansetron AdvReac Unknown PALPITATION Verified 08/03/20 18:49 [From ZOFRAN ( S HYDROCHLORIDE)] Active Medications: Current Medications Generic Name Dose Route Start Last Admin Trade Name Freq PRN Reason Stop Dose Admin Acetaminophen 650 mg 08/03/20 23:16 08/05/20 03:28 Acetaminophen 325 Mg Tablet PO 650 mg Q6H PRN Administration Pain, Mild (Pain Scale 1-3) Hydrocodone Bitart/Acetaminophen 0.5 tab 08/03/20 23:16 08/06/20 14:21 Hydrocodone Bit/Acetam 5/325 Tablet PO 0.5 tab Q8H PRN Administration pain Apixaban 5 mg 08/07/20 21:00 Apixaban 5 Mg Tablet PO BID THEO Ascorbic Acid 250 mg 08/04/20 09:00 08/07/20 09:52 Ascorbic Acid 500 Mg Tablet PO 250 mg DAILY THEO Administration Aspirin 81 mg 08/04/20 09:00 08/07/20 09:52 Aspirin Enteric Coated 81 Mg Tablet.Dr PO 81 mg DAILY THEO Administration Docusate Sodium 100 mg 08/03/20 23:16 Docusate Sodium 100 Mg Capsule PO DAILY PRN Constipation Fluticasone/Vilanterol 1 puff 08/04/20 09:00 08/07/20 08:13 Fluticasone/Vilanterol 200/25 Blst.W.Dev INHALE 1 puff DAILY THEO Administration Lactated Ringer's 1,000 mls @ 100 mls/hr 08/05/20 06:30 08/07/20 09:51 Lr IVCONT 100 mls/hr .Q10H THEO Administration Ceftriaxone Sodium 1 gm/ 50 mls @ 100 mls/hr 08/07/20 13:45 Sodium Chloride IV Q24H THEO Lisinopril 40 mg 08/04/20 09:00 08/07/20 09:52 Lisinopril 40 Mg Tablet PO 40 mg DAILY TEHO Administration Protocol Pt Own: Rosuvastatin 1 each 08/04/20 21:00 08/06/20 20:24 5mg Tab PO 1 each BEDTIME THEO Administration Omeprazole 20 mg 08/04/20 09:00 08/07/20 09:52 Omeprazole 20 Mg Capsule. PO 20 mg DAILY THEO Administration Pharmacy Consult 1 each 08/03/20 19:05 Consult Rx Perform Med Rec MISCELLANE ONCE PRN Consult order Pharmacy Consult 1 each 08/03/20 23:16 Consult Rx Vancomycin Dosing MISCELLANE DAILY PRN Consult order Promethazine HCl 12.5 mg 08/04/20 06:12 Promethazine Hcl 25 Mg Tablet PO QID PRN Nausea Sodium Chloride 3 ml 08/04/20 00:00 08/07/20 09:52 0.9 % Sodium Chloride Flush 3 Ml Syringe IVFLUSH Not Given QSHIFT [facility] Sotalol HCl 80 mg 08/04/20 09:00 08/07/20 09:52 Sotalol Hcl 80 Mg Tablet PO 80 mg BID [facility] Administration Home Medications Medication Instructions Recorded Confirmed Last Taken Type lisinopril 40 mg PO DAILY 06/28/20 08/03/20 08/02/20 History metformin 250 mg PO DAILY 06/28/20 08/03/20 08/02/20 History omega 9-uic-trn-fish oil [Fish Oil] 1 cap PO DAILY 06/28/20 08/03/20 08/02/20 History omeprazole 20 mg PO DAILY 06/28/20 08/03/20 08/02/20 History raloxifene 60 mg PO DAILY 06/28/20 08/03/20 08/02/20 History rosuvastatin 5 mg PO BEDTIME 06/28/20 08/03/20 08/02/20 History ascorbic acid (vitamin C) 500 mg 250 mg PO DAILY 07/13/20 08/03/20 08/02/20 History tablet aspirin 81 mg tablet,delayed 81 mg PO DAILY 07/13/20 08/03/20 08/02/20 History release budesonide-formoterol HFA 160 2 puff INHALATION BID 07/13/20 08/03/20 08/02/20 History mcg-4.5 mcg/actuation aerosol inhaler cholecalciferol (vitamin D3) 125 125 mcg PO DAILY 07/13/20 08/03/20 08/02/20 History mcg (5,000 unit) capsule flu vacc 2020-21(65yr 0.5 ml IM DIRECTED 07/13/20 Unknown History up)-MF59C(PF) 60 mcg(15 mcgx4)/0.5 mL IM syringe sotalol 80 mg tablet 80 mg PO BID 07/13/20 08/03/20 08/02/20 History hydrocodone-acetaminophen 0.5 tab PO Q8H PRN 08/03/20 08/03/20 Unknown History promethazine 1 - 2 tab PO QID PRN 08/03/20 08/03/20 Unknown History Physical Exam Vital Signs: Vital Signs: Last Vital Signs Temp 97 F 08/07/20 10:53 Pulse 77 08/07/20 10:53 Resp 18 08/07/20 10:53 BP 170/82 H 08/07/20 10:53 Pulse Ox 96 08/07/20 10:53 Body Mass Index 28.5 Const: General: cooperative Orientation/consciousness: patient oriented x3 HENMT: Head: Yes normal to inspection Teeth and gingiva: fair dentition Eyes: General: appearance normal, both eyes and all related structures Resp: Effort & Inspection: normal respiratory effort Cardio: Rate: regular rate Rhythm: regular rhythm GI: Palpation (GI): Soft to palpation and nontender : General: Yes no CVA tenderness Back/Spine/Pelvis: Back: no CVA tenderness Skin: General skin exam: no rashes or lesions noted Neuro: General: patient oriented x3 Extrem: General: Yes normal to inspection Results Labs CBC & Chem 7: 08/07/20 06:20 08/08/20 13:09 Labs: Short CBC 08/07/20 Range/Units 06:20 WBC 6.7 (4.8-10.8) X10*3/uL Hgb 11.2 L (12.0-16.0) g/dl Hct 33.0 L (37-47) % Plt Count 181 (160-400) X10*3/uL BMP 08/07/20 08/07/20 06:07 10:41 Sodium 140 138 Potassium 2.9 L 3.0 L Chloride 105 105 Carbon Dioxide 25 24 BUN 7 L D 6 L Creatinine 0.62 0.62 Calcium 7.5 L D 7.8 L Microbiology Microbiology Results: Microbiology 08/03/20 23:00 Blood - Venous Blood Culture - Final Streptococcus viridans group 02/09/21 23:00 Blood - Venous Blood Culture - Preliminary No growth after 48 hours. Assessment and Plan (1) Sepsis: Status: Acute Change Zosyn to Ceftriaxone Can switch to po Ceftin for a week at any time to cover possible real organism (2) COVID-19 virus infection: Status: Acute (3) Pneumonia: Qualifiers: Laterality: bilateral Pneumonia type: due to unspecified organism Status: Acute
[2020-08-07] MEDS: cefTRIAXone sodium 1 GM in 0.9 % Sodium Chloride 50 ML IV (15:07)
[2020-08-07 16:12] LABS: Glucose, Whole Blood 107 mg/dL (60-115)
[2020-08-07] MEDS: guaiFENesin DM 100/10/5 ML 5 ML SYRUP PO (17:45)
[2020-08-07 19:55] LABS: Glucose, Whole Blood 140 mg/dL (60-115)
[2020-08-07] MEDS: Apixaban 5 MG TABLET PO (20:38)
[2020-08-07] MEDS: 0.9 % Sodium Chloride Flush 3 ML SYRINGE IVFLUSH (20:38)
[2020-08-08] VITALS (8 sets, daily range): BP systolic 138–198; BP diastolic 68–103; PULSE 76–97; RESP 18–24; TEMP 36.2–37.1; O2SAT 91–98
[2020-08-08 07:52] LABS: Glucose, Whole Blood 137 mg/dL (60-115)
[2020-08-08] MEDS: Ascorbic Acid 500 MG TABLET 250 MG PO (09:30)
[2020-08-08] MEDS: Potassium Chloride ER 20 MEQ TAB.ER.PRT 40 MEQ PO (09:30)
[2020-08-08] MEDS: 0.9 % Sodium Chloride Flush 3 ML SYRINGE IVFLUSH ×3 (09:30→20:55)
[2020-08-08] MEDS: Sotalol HCL 80 MG TABLET PO ×2 (09:31→20:33)
[2020-08-08] MEDS: Aspirin Enteric Coated 81 MG TABLET.DR PO (09:31)
[2020-08-08] MEDS: Omeprazole 20 MG CAPSULE.DR PO (09:31)
[2020-08-08] MEDS: Apixaban 5 MG TABLET PO ×2 (09:31→20:45)
[2020-08-08 11:44] LABS: Glucose, Whole Blood 141 mg/dL (60-115)
--- NOTE | 2020-08-08 12:46 | HO.PM.IMPN ---
Subjective Subjective Date of Service: 08/08/20 Interval History: Patient seen and examined at bedside patient confusion improving Review of Systems All other systems are reviewed and are negative Constitutional: Reports no additional constitutional complain Cardiovascular: Reports no additional cardiovascular complaints Respiratory: Reports no additional respiratory complaints Gastrointestinal: Reports no additional gastrointestinal complaints Endocrine: Reports no additional endocrine complaints Hematologic/Lymphatic: Reports no additional hematologic/lymphatic complaints Allergic/Immunologic: Reports no additional allergic/immunologic complaints Reports system reviewed and no additional complaints, except as documented and Reports Abnormal speech present Neurologic Neurologic: Reports confusion Psychiatric Psychiatric: Reports confusion Physical Exam Vital Signs: Vital Signs: Last Vital Signs Temp 98.1 F 08/08/20 12:00 Pulse 85 08/08/20 12:00 Resp 24 H 08/08/20 08:00 BP 198/96 H 08/08/20 12:00 Pulse Ox 95 08/08/20 12:00 Body Mass Index 28.5 Const: General: no acute distress and confusion Orientation/consciousness: confusion Eyes: Other: Not following command for me to be able to assess neurology function of eyes Resp: Effort & Inspection: normal respiratory effort and able to speak in complete sentences Cardio: Rate: regular rate Rhythm: regular rhythm GI: Palpation (GI): Soft to palpation Auscultation: normal bowel sounds Skin: General skin exam: no rashes or lesions noted Neuro: Other: Not following neurological commands General: confusion Extrem: General: Yes normal to inspection and Yes no pedal edema Objective Data Current Medications Generic Name Dose Route Start Last Admin Trade Name Freq PRN Reason Stop Dose Admin Acetaminophen 650 mg 08/03/20 23:16 08/05/20 03:28 Acetaminophen 325 Mg Tablet PO 650 mg Q6H PRN Administration Pain, Mild (Pain Scale 1-3) Hydrocodone Bitart/Acetaminophen 0.5 tab 08/03/20 23:16 08/06/20 14:21 Hydrocodone Bit/Acetam 5/325 Tablet PO 0.5 tab Q8H PRN Administration pain Apixaban 5 mg 08/07/20 21:00 08/08/20 09:31 Apixaban 5 Mg Tablet PO 5 mg BID THEO Administration Ascorbic Acid 250 mg 08/04/20 09:00 08/08/20 09:30 Ascorbic Acid 500 Mg Tablet PO 250 mg DAILY THEO Administration Aspirin 81 mg 08/04/20 09:00 08/08/20 09:31 Aspirin Enteric Coated 81 Mg Tablet. PO 81 mg DAILY THEO Administration Benzonatate 100 mg 08/07/20 17:28 Benzonatate 100 Mg Capsule PO TID PRN Cough Docusate Sodium 100 mg 08/03/20 23:16 Docusate Sodium 100 Mg Capsule PO DAILY PRN Constipation Fluticasone/Vilanterol 1 puff 08/04/20 09:00 08/08/20 07:48 Fluticasone/Vilanterol 200/25 Blst.W.Dev INHALE Not Given DAILY THEO Guaifenesin/Dextromethorphan 5 ml 08/07/20 17:28 08/07/20 17:45 Guaifenesin Dm 100/10/5 Ml 5 Ml Syrup PO 5 ml Q4H PRN Administration cough Ceftriaxone Sodium 1 gm/ 50 mls @ 100 mls/hr 08/07/20 14:00 08/07/20 17:00 Sodium Chloride IV Infused Q24H THEO Infusion Lisinopril 40 mg 08/04/20 09:00 08/08/20 09:31 Lisinopril 40 Mg Tablet PO 40 mg DAILY THEO Administration Protocol Pt Own: Rosuvastatin 1 each 08/04/20 21:00 08/07/20 21:13 5mg Tab PO 1 each BEDTIME THEO Administration Omeprazole 20 mg 08/04/20 09:00 08/08/20 09:31 Omeprazole 20 Mg Capsule. PO 20 mg DAILY THEO Administration Pharmacy Consult 1 each 08/03/20 19:05 Consult Rx Perform Med Rec MISCELLANE ONCE PRN Consult order Pharmacy Consult 1 each 08/03/20 23:16 Consult Rx Vancomycin Dosing MISCELLANE DAILY PRN Consult order Promethazine HCl 12.5 mg 08/04/20 06:12 Promethazine Hcl 25 Mg Tablet PO QID PRN Nausea Sodium Chloride 3 ml 08/04/20 00:00 08/08/20 09:30 0.9 % Sodium Chloride Flush 3 Ml Syringe IVFLUSH 3 ml QSHIFT THEO Administration Sotalol HCl 80 mg 08/04/20 09:00 08/08/20 09:31 Sotalol Hcl 80 Mg Tablet PO 80 mg BID THEO Administration Labs CBC & Chem 7: 08/07/20 06:20 08/07/20 10:41 Microbiology Microbiology Results: Microbiology 08/07/20 10:37 Blood - Venous Blood Culture - Preliminary No growth after 24 hours. 08/07/20 10:37 Blood - Venous Blood Culture - Preliminary No growth after 24 hours. 08/03/20 23:00 Blood - Venous Blood Culture - Final Streptococcus viridans group 08/03/20 23:00 Blood - Venous Blood Culture - Preliminary No growth after 48 hours. Assessment and Plan (1) Acute alteration in mental status: Status: Acute (2) COVID-19 virus infection: Status: Acute (3) Pneumonia: Status: Acute (4) Sepsis: Status: Acute Assessment and Plan: This is a 85-year-old female with past medical history as above who presents to the hospital with altered mentation and garbled speech per EMS as well as ED physician. Found to have COVID-19 positive and pneumonia Acute CVA MRI brain shows few cortical acute infarcts neurology consulted recommended CTA ,CTA shows no significant stenosis per Neurologyand cardiology likely embolic source given arrhythmia recommended starting anticoagulation started on Eliquis lipid profile was done LDL in 46 cholestrol 100 statins stopped PTconsulted echocardiogram done shows no vegetation Toxic Metabolic encephalopathy likely secondary to underlying COVID infection and acute CVA resolving monitor mental status Biilateral pneumonia COVID positive on Zosyn switched to Rocephin per ID continue supportive management not requiring any oxygen 1 set of blood culture growing strep viridans source not clear probabaly contaminatant versus pneumonia repeat blood culture pending follow-up culture seen by ID reconciled likely contaminant or could be from pneumonia recommended continue Rocephin and p.o. Ceftin for 1 week on discharge echocardiogram was done shows no vegetation CAD continue aspirin History of tachycardia atrial tachycardia on monitor given multiple infarct will get cardiology consult echo cardiogram done shows normal EF Diiabetes mellitus Continue sliding scale insulin monitor blood glucose Hypertension blood pressure elevated Continue lisinopril Will start amlodipine monitor blood pressure DVT prophylaxis: Heparin subQ
[2020-08-08] MEDS: amLODIPine Besylate 5 MG TABLET PO (13:22)
[2020-08-08] MEDS: cefTRIAXone sodium 1 GM in 0.9 % Sodium Chloride 50 ML IV (13:22)
[2020-08-08 14:12] LABS: Anion Gap 13 (12-20); Blood Urea Nitrogen 5 mg/dL (9-16); Calcium 8.3 mg/dL (8.4-10.2); Carbon Dioxide 27 mmol/L (22-29); Chloride 102 mmol/L (96-108); Creatinine Clr Calc Pharmacy 56.5; Estimated Glomerular Filt Rate > 60; Glucose Random 114 mg/dL (60-115); Potassium 3.7 mmol/L (3.3-5.1); Sodium 138 mmol/L (135-145)
[2020-08-08 15:16] LABS: Strep Pneumo Ag urine Not Detected (Not Detected)
[2020-08-08 16:01] LABS: Glucose, Whole Blood 131 mg/dL (60-115)
[2020-08-08 19:55] LABS: Glucose, Whole Blood 123 mg/dL (60-115)
[2020-08-08] MEDS: Acetaminophen 325 MG TABLET 650 MG PO (20:40)
[2020-08-09] VITALS (10 sets, daily range): BP systolic 150–197; BP diastolic 33–101; PULSE 80–100; RESP 18–22; TEMP 36–37.1; O2SAT 93–106
[2020-08-09 07:04] LABS: Anion Gap 15 (12-20); Blood Urea Nitrogen 5 mg/dL (9-16); Calcium 8.4 mg/dL (8.4-10.2); Carbon Dioxide 23 mmol/L (22-29); Chloride 105 mmol/L (96-108); Creatinine Clr Calc Pharmacy 59.2; Estimated Glomerular Filt Rate > 60; Glucose Random 137 mg/dL (60-115); Potassium 3.7 mmol/L (3.3-5.1); Sodium 139 mmol/L (135-145)
[2020-08-09 07:43] LABS: Glucose, Whole Blood 138 mg/dL (60-115)
[2020-08-09] MEDS: Fluticasone/Vilanterol 200/25 BLST.W.DEV 1 PUFF INHALE (08:21)
[2020-08-09] MEDS: Omeprazole 20 MG CAPSULE.DR PO (09:12)
[2020-08-09] MEDS: 0.9 % Sodium Chloride Flush 3 ML SYRINGE IVFLUSH ×3 (09:12→23:28)
[2020-08-09] MEDS: Ascorbic Acid 500 MG TABLET 250 MG PO (09:12)
[2020-08-09] MEDS: Apixaban 5 MG TABLET PO ×2 (09:12→20:46)
[2020-08-09] MEDS: Aspirin Enteric Coated 81 MG TABLET.DR PO (09:12)
[2020-08-09] MEDS: amLODIPine Besylate 5 MG TABLET PO ×2 (09:13→15:48)
[2020-08-09] MEDS: Sotalol HCL 80 MG TABLET PO ×2 (09:13→20:46)
--- NOTE | 2020-08-09 11:09 | P.DS_ITS ---
DS: Providers Provider Date of Service: 10/23/20 Date of admission: 08/03/20 23:16 Primary care physician: Unknown Physician Consults: 08/06/20 08:16 Consult to Neurology Routine Consulting Provider: [facility] Reason for consultation: acute stroke 08/07/20 07:55 Consult to Infectious Diseases Routine Consulting Provider: Carly Johnson Reason for consultation: strep bactremia 08/07/20 10:41 Consult to Cardiology Routine Consulting Provider: Hola Valenzuela Reason for consultation: CVA multiple infarct , atrial tachycardia DS: Diagnosis Discharge Diagnosis (1) Sepsis: Status: Resolved (2) COVID-19 virus infection: Status: Acute (3) Pneumonia: Status: Resolved DS: Medications Discharge Medications Home Medications: Home Medications Medication Instructions Recorded Confirmed lisinopril 40 mg PO DAILY 06/28/20 08/03/20 metformin 250 mg PO DAILY 06/28/20 08/03/20 omega 1-gxf-fxu-fish oil [Fish Oil] 1 cap PO DAILY 06/28/20 08/03/20 omeprazole 20 mg PO DAILY 06/28/20 08/03/20 raloxifene 60 mg PO DAILY 06/28/20 08/03/20 rosuvastatin 5 mg PO BEDTIME 06/28/20 08/03/20 ascorbic acid (vitamin C) 500 mg 250 mg PO DAILY 07/13/20 08/03/20 tablet aspirin 81 mg tablet,delayed 81 mg PO DAILY 07/13/20 08/03/20 release budesonide-formoterol HFA 160 2 puff INHALATION BID 07/13/20 08/03/20 mcg-4.5 mcg/actuation aerosol inhaler cholecalciferol (vitamin D3) 125 125 mcg PO DAILY 07/13/20 08/03/20 mcg (5,000 unit) capsule flu vacc 2020-21(65yr 0.5 ml IM DIRECTED 07/13/20 up)-[id number](PF) 60 mcg(15 mcgx4)/0.5 mL IM syringe sotalol 80 mg tablet 80 mg PO BID 07/13/20 08/03/20 hydrocodone-acetaminophen 0.5 tab PO Q8H PRN 08/03/20 08/03/20 promethazine 1 - 2 tab PO QID PRN 08/03/20 08/03/20 DS: Summary Hospital Course Hospital Course: Chief Complaint: confusion This is an 85-year-old female with past medical history of asthma, COPD, COPD, diabetes, hypertension, hyperlipidemia, who is brought in from home by EMS. History is obtained from ED physician as patient is confused and unable to give any history. Patient was recently discharged from the hospital on 07/01 for perinephric hematoma. According to the family who called EMS patient last well known and at her baseline on 08/02 but when they went to see her around 23 hours later they found her to be very confused and on the floor. EMS found patient on the ground on her back complaining of right-sided pain. According to EMS she had intermittent garbled speech but did not remember what happened to her. She was not found unconscious. Attempted to ask patient about history but she is not oriented to place, time, events, answers no to all my questions but I am not sure she understands any of them. On arrival to the hospital patient's temperature is 98.1?, heart rate of 108, respiratory rate of 20, blood pressure 191/99, satting 95% on room air Labs are significant for WBC of 14.1, INR of 1.3, CPK of 243, UA negative, chest x-ray showing bilateral pulmonary infiltrates which are new from June, COVID-19 positive. Hospital course: 1. CVA--in setting of covid 19 with symtpoms of confusion . MRI shwoed embolic pattern of CVA. She has history of atrial tachycardia and as such. Was seen by cardiology with the following assessment: Given prior history of tachycardia and high likelihood of atrial arrhythmias given her multiple risk including advanced age with high risk for thromboembolic complication given her high CHADSVASc and with embolic CVA I think it is appropriate to start oral anticoagulation therapy. With her COVID infection. Would require outpatient prolonged monitoring with implantable loop recorder which will be scheduled once patient improves. Consider using direct oral anticoagulant agent such as Eliquis. She has been on Eliquis 5 bid. Additionally on ASA, and statin and has been seen by PT/OT and recommend STR 2. Toxic Metabolic encephalopathy likely secondary to underlying COVID infection and acute CVA--this has resolved. 3. Biilateral pneumonia COVID positive--was initially given Zosyn and then changned to Ceftriaxone by ID and recommend change to PO Ceftin at discharge for 7 days. She has no hypoxia Strep Viridan bacteremia--1/2 on 08/03, repeat culture negative thus far. ID suggest this could be contamination or frompneumonia. Antibiotics as above. Echo showed no vegetation Covid 19, assympotomatic and has not required steroid, plasma or Remdesevir CAD continue aspirin History of tachycardia--atrial fibrilation not excluded so started on Eliquid for stroke prevention. Diiabetes mellitus Continue sliding scale insulin monitor blood glucose Hypertension--continue Lisinopril and Norvasc Time Spent with Patient Time attestation: Total time spent providing and/or coordinating discharge services: Discharge coordination time: Greater than 30 minutes Quality: Stroke Pt Provided Written Stroke Discharge Instructions: Patient given written information Physical Exam Vital Signs: Vital Signs: Selected Entries 08/10/20 07:54 08/10/20 09:56 Pulse Rate 92 Respiratory Rate 20 Blood Pressure 170/82 H Pulse Oximetry 94 Body Mass Index 28.5 Constitutional Awake and Alert, No apparent distress Neck Supple, No lymphadenopathy Cardiovascular RRR, No M/R/G, S1 S2, No S3 S4, No pedal edema Respiratory Lungs clear, No respiratory distress Gastrointestinal Non tender, Non-distended Skin No rash Neurological Alert & oriented x3 Psychological Appropriate affect DS: Data Data Completed and Pending Labs on day of discharge: Laboratory Results - last 24 hr 08/04/20 08/08/20 08/08/20 04:46 11:25 13:09 Sodium 138 Potassium 3.7 D Chloride 102 Carbon Dioxide 27 Anion Gap 13 BUN 5 L Creatinine 0.64 Estim Creat Clear Calc 56.5 Estimated GFR > 60 POC Glucose 141 H Random Glucose 114 Calcium 8.3 L D Ur Strep pneumoniae Ag Not Detected 08/08/20 08/08/20 08/09/20 15:52 19:46 05:43 Sodium 139 Potassium 3.7 Chloride 105 Carbon Dioxide 23 Anion Gap 15 BUN 5 L Creatinine 0.61 Estim Creat Clear Calc 59.2 Estimated GFR > 60 POC Glucose 131 H 123 H Random Glucose 137 H Calcium 8.4 Ur Strep pneumoniae Ag 08/09/20 07:24 Sodium Potassium Chloride Carbon Dioxide Anion Gap BUN Creatinine Estim Creat Clear Calc Estimated GFR POC Glucose 138 H Random Glucose Calcium Ur Strep pneumoniae Ag Preliminary micro results at discharge 08/07/20 10:37 Blood Culture - Preliminary Blood - Venous No growth after 24 hours. 08/07/20 10:37 Blood Culture - Preliminary Blood - Venous No growth after 24 hours. Discharge Plan Discharge Anticipated Discharge Date/Time: 08/10/20 11:32 Patient Disposition: Xfer [facility] Discharge Diagnosis: Stroke, COVID-19. Referrals: paulino mendez [Other] Physician,Unknown [Primary Care Provider] - Discharge Medications: New Eliquis 5 mg Tablet 5 mg PO BID Qty: 60 RF: 0 cefuroxime axetil 500 mg tablet 500 mg PO BID 7 Days Qty: 14 RF: 0 Continued rosuvastatin 5 mg tablet 5 mg PO BEDTIME RF: 0 omega 1-nrv-kaq-fish oil [Fish Oil] 1,000 mg (120 mg-180 mg) Capsule 1 cap PO DAILY RF: 0 aspirin 81 mg tablet,delayed release (DR/EC) 81 mg PO DAILY RF: 0 ascorbic acid (vitamin C) 500 mg tablet 250 mg PO DAILY RF: 0 cholecalciferol (vitamin D3) 125 mcg (5,000 unit) capsule 125 mcg PO DAILY RF: 0 budesonide-formoterol 160-4.5 mcg/actuation HFA aerosol inhaler 2 puff inhalation BID RF: 0 flu vac 2020 [id number](PF) 60 mcg (15 mcg x 4)/0.5 mL syringe 0.5 ml IM DIRECTED RF: 0 No Action albuterol sulfate [ProAir HFA] 90 mcg/actuation HFA aerosol inhaler 2 puff inhalation Q4-6H PRN (Reason: shortness of breath or wheezing) 30 Days Qty: 8.5 RF: 2 metformin 500 mg tablet 500 mg PO DAILY RF: 0 raloxifene 60 mg tablet 50 mg PO DAILY RF: 0 amlodipine [Norvasc] 10 mg tablet 5 mg PO DAILY RF: 0 famotidine 40 mg tablet 40 mg PO BEDTIME RF: 0 losartan 100 mg tablet 100 mg PO DAILY RF: 0 metoprolol succinate 50 mg tablet extended release 24 hr 50 mg PO DAILY RF: 0 cholecalciferol (vitamin D3) 125 mcg (5,000 unit) capsule 125 mcg PO DAILY RF: 0 promethazine 12.5 mg tablet 12.5 mg PO TID PRNRF: 0 nystatin 100,000 unit/mL suspension 5 ml PO TID MDD One tsf tid swish and swallow 15 Days Qty: 225 RF: 1 Discharge Orders: Discharge Order (Routine); Ordered 08/09/20 Ordered By: Prabhakar Aguilar Diet: advance to usual diet Activity on Discharge: As tolerated Stand Alone Forms: Patient Portal Discharge page Care Plan Goals: prevent further stroke Health Concerns: recent stroke and High BPs Plan of Treatment: Short term rehab, take blood pressure medication, cholesterol medication and blood thiner with Eliquis to prevent stroke Assessment: Stroke, COVID-19. Discharge Date/Time: 08/10/20 16:45
--- NOTE | 2020-08-09 11:40 | HO.PM.IMPN ---
Subjective Subjective Date of Service: 08/09/20 Interval History: Seen in f/u for cva, covid, pneumonia. no new issues, awaiting placement Review of Systems Gen: no fever Resp: no sob, no cough CV: no chest, no CORRAL, no leg edema GI: No n/v, no abd pain Neuro: No confusion Physical Exam Vital Signs: Vital Signs: Last Vital Signs Temp 98.8 F 08/09/20 08:00 Pulse 100 08/09/20 08:00 Resp 20 08/09/20 08:00 BP 188/86 H 08/09/20 03:44 Pulse Ox 94 08/09/20 08:00 Body Mass Index 28.5 General: AO X 3, no acute distress Resp: CTA bilateral CVS: S1,S2,RRR GI: +BS, NT, no distention Skin: No rash Neuro: motor grossly intact Psych: appropriate affect Objective Data Current Medications Generic Name Dose Route Start Last Admin Trade Name Freq PRN Reason Stop Dose Admin Acetaminophen 650 mg 08/03/20 23:16 08/08/20 20:40 Acetaminophen 325 Mg Tablet PO 650 mg Q6H PRN Administration Pain, Mild (Pain Scale 1-3) Amlodipine Besylate 5 mg 08/08/20 13:00 08/09/20 09:13 Amlodipine Besylate 5 Mg Tablet PO 5 mg DAILY THEO Administration Protocol Apixaban 5 mg 08/07/20 21:00 08/09/20 09:12 Apixaban 5 Mg Tablet PO 5 mg BID THEO Administration Ascorbic Acid 250 mg 08/04/20 09:00 08/09/20 09:12 Ascorbic Acid 500 Mg Tablet PO 250 mg DAILY THEO Administration Aspirin 81 mg 08/04/20 09:00 08/09/20 09:12 Aspirin Enteric Coated 81 Mg Tablet.Dr PO 81 mg DAILY THEO Administration Benzonatate 100 mg 08/07/20 17:28 Benzonatate 100 Mg Capsule PO TID PRN Cough Docusate Sodium 100 mg 08/03/20 23:16 Docusate Sodium 100 Mg Capsule PO DAILY PRN Constipation Fluticasone/Vilanterol 1 puff 08/04/20 09:00 08/09/20 08:21 Fluticasone/Vilanterol 200/25 Blst.W.Dev INHALE 1 puff DAILY THEO Administration Guaifenesin/Dextromethorphan 5 ml 08/07/20 17:28 08/07/20 17:45 Guaifenesin Dm 100/10/5 Ml 5 Ml Syrup PO 5 ml Q4H PRN Administration cough Ceftriaxone Sodium 1 gm/ 50 mls @ 100 mls/hr 08/07/20 14:00 08/08/20 14:21 Sodium Chloride IV Infused Q24H THEO Infusion Lisinopril 40 mg 08/04/20 09:00 08/09/20 09:12 Lisinopril 40 Mg Tablet PO 40 mg DAILY THEO Administration Protocol Pt Own: Rosuvastatin 1 each 08/04/20 21:00 08/08/20 20:53 5mg Tab PO 1 each BEDTIME THEO Administration Omeprazole 20 mg 08/04/20 09:00 08/09/20 09:12 Omeprazole 20 Mg Capsule. PO 20 mg DAILY THEO Administration Pharmacy Consult 1 each 08/03/20 19:05 Consult Rx Perform Med Rec MISCELLANE ONCE PRN Consult order Pharmacy Consult 1 each 08/03/20 23:16 Consult Rx Vancomycin Dosing MISCELLANE DAILY PRN Consult order Promethazine HCl 12.5 mg 08/04/20 06:12 Promethazine Hcl 25 Mg Tablet PO QID PRN Nausea Sodium Chloride 3 ml 08/04/20 00:00 08/09/20 09:12 0.9 % Sodium Chloride Flush 3 Ml Syringe IVFLUSH 3 ml QSHIFT THEO Administration Sotalol HCl 80 mg 08/04/20 09:00 08/09/20 09:13 Sotalol Hcl 80 Mg Tablet PO 80 mg BID THEO Administration Labs CBC & Chem 7: 08/07/20 06:20 08/09/20 05:43 Microbiology Microbiology Results: Microbiology 08/03/20 23:00 Blood - Venous Blood Culture - Final No growth after 5 days. 08/07/20 10:37 Blood - Venous Blood Culture - Preliminary No growth after 24 hours. 08/07/20 10:37 Blood - Venous Blood Culture - Preliminary No growth after 24 hours. 08/03/20 23:00 Blood - Venous Blood Culture - Final Streptococcus viridans group Assessment and Plan (1) Sepsis: Status: Acute Assessment and Plan: m (2) COVID-19 virus infection: Status: Acute (3) Pneumonia: Status: Acute Assessment and Plan: 1. CVA--in setting of covid 19 with symtpoms of confusion . MRI shwoed embolic pattern of CVA. She has history of atrial tachycardia and as such. Was seen by cardiology with the following assessment: Given prior history of tachycardia and high likelihood of atrial arrhythmias given her multiple risk including advanced age with high risk for thromboembolic complication given her high CHADSVASc and with embolic CVA I think it is appropriate to start oral anticoagulation therapy. With her COVID infection. Would require outpatient prolonged monitoring with implantable loop recorder which will be scheduled once patient improves. Consider using direct oral anticoagulant agent such as Eliquis. She has been on Eliquis 5 bid. Additionally on ASA, and statin and has been seen by PT/OT and recommend STR 2. Toxic Metabolic encephalopathy likely secondary to underlying COVID infection and acute CVA--this has resolved. 3. Biilateral pneumonia COVID positive--was initially given Zosyn and then changned to Ceftriaxone by ID and recommend change to PO Ceftin at discharge for 7 days. She has no hypoxia Strep Viridan bacteremia--1/2 on 08/03, repeat culture negative thus far. ID suggest this could be contamination or frompneumonia. Antibiotics as above. Echo showed no vegetation Covid 19, assympotomatic and has not required steroid, plasma or Remdesevir CAD continue aspirin History of tachycardia--atrial fibrilation not excluded so started on Eliquid for stroke prevention. Diiabetes mellitus Continue sliding scale insulin monitor blood glucose
[2020-08-09 11:49] LABS: Glucose, Whole Blood 130 mg/dL (60-115)
[2020-08-09] MEDS: cefTRIAXone sodium 1 GM in 0.9 % Sodium Chloride 50 ML IV (13:45)
[2020-08-09 14:28] LABS: COVID-19 Test Negative (Negative); IDNOW Serial# 9DD0AD1C
[2020-08-09 16:15] LABS: Glucose, Whole Blood 120 mg/dL (60-115)
[2020-08-09 19:54] LABS: Glucose, Whole Blood 130 mg/dL (60-115)
--- NOTE | 2020-08-09 22:25 | PC.NURSE ---
Patient's BP 195/101. Dr. Aguilar notified , Norvasc 5 mg po x1 ordered/administered. Patient was scheduled to be discharged. Discharge cancelled d/t elevated BP . BP 161/92 at present. Will continue monitor and MD will reassess in am.
[2020-08-10] VITALS (10 sets, daily range): BP systolic 140–178; BP diastolic 56–82; PULSE 83–106; RESP 18–20; TEMP 36.3–37; O2SAT 93–97
[2020-08-10 07:08] LABS: Anion Gap 16 (12-20); Blood Urea Nitrogen 7 mg/dL (9-16); Calcium 8.4 mg/dL (8.4-10.2); Carbon Dioxide 23 mmol/L (22-29); Chloride 105 mmol/L (96-108); Creatinine Clr Calc Pharmacy 56.5; Estimated Glomerular Filt Rate > 60; Glucose Random 137 mg/dL (60-115); Potassium 3.6 mmol/L (3.3-5.1); Sodium 140 mmol/L (135-145)
[2020-08-10 07:35] LABS: Glucose, Whole Blood 132 mg/dL (60-115)
[2020-08-10] MEDS: Fluticasone/Vilanterol 200/25 BLST.W.DEV 1 PUFF INHALE (07:45)
[2020-08-10 08:26] LABS: Legionella Ag Urine Not Detected (Not Detected)
[2020-08-10] MEDS: Sotalol HCL 80 MG TABLET PO (08:45)
[2020-08-10] MEDS: amLODIPine Besylate 5 MG TABLET PO ×2 (08:45→09:56)
[2020-08-10] MEDS: Aspirin Enteric Coated 81 MG TABLET.DR PO (08:45)
[2020-08-10] MEDS: Ascorbic Acid 500 MG TABLET 250 MG PO (08:46)
[2020-08-10] MEDS: 0.9 % Sodium Chloride Flush 3 ML SYRINGE IVFLUSH (08:46)
[2020-08-10] MEDS: Apixaban 5 MG TABLET PO (08:46)
[2020-08-10] MEDS: Omeprazole 20 MG CAPSULE.DR PO (08:46)
[2020-08-10] MEDS: hydrALAZINE HCl 25 MG TABLET PO (09:56)
[2020-08-10 11:14] LABS: Glucose, Whole Blood 141 mg/dL (60-115)
--- NOTE | 2020-08-10 11:17 | MHC.CM.PN ---
IMM 08/09/20 Female DC today Via BLS to [facility].
== END 2020-08-10 16:45 | disposition skilled nursing facility (03) | DRG 871 ==
LOC: HO.ED 23:35 → HO.EDOVER 23:39 → HO.ICU 23:55 → HO.IMC 08-04 00:08
PROVIDERS: Internal Medicine; Admitting Provider Internal Medicine; Emergency Provider Emergency Medicine; PCP Family Medicine; Visit Provider Internal Medicine
DX: A41.9 Sepsis, unspecified organism (principal); I63.432 Cerebral infarction due to embolism of left posterior cerebral artery; U07.1 COVID-19; G92 Toxic encephalopathy; E11.9 Type 2 diabetes mellitus without complications; R47.81 Slurred speech; I25.10 Atherosclerotic heart disease of native coronary artery without angina pectoris; Z88.5 Allergy status to narcotic agent; Z79.01 Long term (current) use of anticoagulants; Z79.82 Long term (current) use of aspirin; Z79.84 Long term (current) use of oral hypoglycemic drugs; Z79.899 Other long term (current) drug therapy
CPT/HCPCS: 0241U; 36415; 70450; 70496; 70498; 70551; 71045; 72125; 73502; 80048; 80061; 81003; 82550; 82947; 83605; 83735; 84484; 85025; 85610; 85730; 87040; 87205; 87449; 87635; 87899; 93005; 93306; 96361; 96365; 97110; 97116; 97163; 99284; 99285; C1758; J0696; J1885; J2543; J3370; Q9967; U0003

== ENCOUNTER 2020-08-16 10:48 | Outpatient (REF) | payer SELFPAY ==
[2020-08-16 07:37] LABS: Hematocrit 33.9 % (37-47); Hemoglobin 11.6 g/dl (12.0-16.0); Mean Corpuscular HGB Conc 34.2 g/dl (31.0-35.0); Mean Corpuscular Hemoglobin 32.3 pg (27.0-33.0); Mean Corpuscular Volume 94.4 fL (80-98); Platelet Count 315 X10*3/uL (160-400); Red Blood Count 3.59 X10*6/uL (4.20-5.50); Red Cell Distribution Width 14.6 % (11.0-16.0); White Blood Count 8.1 X10*3/uL (4.8-10.8)
[2020-08-16 08:00] LABS: Anion Gap 14 (12-20); Blood Urea Nitrogen 11 mg/dL (9-16); Calcium 8.7 mg/dL (8.4-10.2); Carbon Dioxide 24 mmol/L (22-29); Chloride 105 mmol/L (96-108); Estimated Glomerular Filt Rate > 60; Glucose Random 119 mg/dL (60-115); Potassium 3.5 mmol/L (3.3-5.1); Sodium 139 mmol/L (135-145)
== END 2020-08-16 10:49 | disposition home or self-care (01) ==
LOC: HO.MMNH1L 10:48
PROVIDERS: Visit Provider Family Medicine
DX: U07.1 COVID-19 (principal)
CPT/HCPCS: 36415; 80048; 85027

== ENCOUNTER 2020-08-18 16:54 | Outpatient (REF) | payer SELFPAY ==
[2020-08-18 16:59] LABS: Hematocrit 40.5 % (37-47); Hemoglobin 13.4 g/dl (12.0-16.0)
== END 2020-08-18 16:55 | disposition home or self-care (01) ==
LOC: HO.MMNH1L 16:54
PROVIDERS: Visit Provider Family Medicine
DX: E78.5 Hyperlipidemia, unspecified (principal); Z20.822 Contact with and (suspected) exposure to COVID-19
CPT/HCPCS: 36415; 85014; 85018

== ENCOUNTER 2020-09-13 00:41 | Outpatient (REF) | payer SELFPAY | END 2020-09-13 00:42 | disposition home or self-care (01) | LOC: HO.MMNH1L 00:41 | PROVIDERS: Visit Provider Family Medicine | DX: Z13.89 Encounter for screening for other disorder (principal) ==

== ENCOUNTER 2020-09-29 13:05 | Outpatient (REF) | payer MEDICARE, OTHER, SELFPAY ==
--- NOTE | ~2020-09-29 | CT_ITS ---
EXAMINATION: CT ABDOMEN WITHOUT CONTRAST CLINICAL INFORMATION: Right perinephric hematoma COMPARISON: Previous CT scans of the abdomen and pelvis most recent June 2020 and May 2015 TECHNIQUE: Contiguous axial thin section helical images of the abdomen were performed without contrast. The data set was reformatted in the coronal and sagittal planes and reviewed on an independent workstation. This CT examination was performed using dose optimization techniques as appropriate, variously including the following: *Automated exposure control *Adjustment of mA and/or kV according to patient size (this includes techniques or standardized protocols for targeted exams where dose is matched to indication/reason for exam; i.e. extremities or head) *Use of iterative reconstruction technique DLP: 255 mGy-cm FINDINGS: LUNG BASES: There is a 3 x 4 mm right lower lobe nodule axial image 10 series 4 that is stable. There is a 8 x 10 mm nodule and atelectasis in the inferior segment of the lingula that is stable. LIVER, GALLBLADDER, BILIARY TREE: The intervertebral liver is normal in size, shape and attenuation. No focal liver lesion is seen. The gallbladder is not identified and has presumably been removed. There is no biliary duct dilatation. PANCREAS: There is fatty infiltration of the pancreas. The pancreas is otherwise normal. SPLEEN: The spleen is normal. ADRENAL GLANDS AND KIDNEYS: The adrenal glands are normal. The previously identified right perinephric hematoma has resolved. There is no hydronephrosis. There is a 2 x 3 mm stone in the right renal pelvis. There is a 2 mm stone in the lower pole of the right kidney. There is a oval-shaped high attenuation lesion in the central upper pole of the right kidney measuring 1 x 2 cm. This is unchanged from prior exams and likely represents a hyperdense cyst. There is a 2 x 3 mm stone in the left renal pelvis. There is a 3 x 4 mm stone in the lower pole of the left kidney. There is a 8 mm high attenuation lesion exophytic to the medial upper pole of the left kidney probably representing a hyperdense cyst. BOWEL LOOPS: Mild diverticulosis of the colon. There is an umbilical hernia containing fat. LYMPH NODES: Normal. VASCULAR: There is evidence of atherosclerotic disease. No aneurysm is seen. BONES: There are T11 T12 L1 and L2 vertebral body compression fractures and kyphoplasty changes. There are compression fractures of the L3 and L4 vertebral bodies. The there is degenerative disc disease at L4-L5. These findings are unchanged from June [address]/CT abdomen wo con IMPRESSION: Resolved right perinephric hematoma. Bilateral small stones including stones in the bilateral renal pelvises. No hydronephrosis. Bilateral hyperdense renal cysts.
== END 2020-09-29 13:06 | disposition home or self-care (01) ==
LOC: HO.CT 13:05
PROVIDERS: Visit Provider Urology
DX: S37.019A Minor contusion of unspecified kidney, initial encounter (principal)
CPT/HCPCS: 74150

== ENCOUNTER → 2020-09-30 11:18 | Outpatient (BNVA) | payer MEDICARE, OTHER, SELFPAY | PROVIDERS: Visit Provider Internal Medicine | DX: J44.9 Chronic obstructive pulmonary disease, unspecified (principal); R05 Cough | CPT/HCPCS: 99212 ==

== ENCOUNTER → 2020-11-01 11:10 | Outpatient (BNVA) | payer MEDICARE, OTHER, SELFPAY | PROVIDERS: PCP Family Medicine; Visit Provider Internal Medicine | DX: J44.9 Chronic obstructive pulmonary disease, unspecified (principal); R05 Cough; Z79.899 Other long term (current) drug therapy | CPT/HCPCS: 99212 ==

== ENCOUNTER 2020-11-26 06:54 | Outpatient (REF) | payer MEDICARE, OTHER, SELFPAY ==
[2020-11-26 11:58] LABS: MANUAL DIFF FLAG NO
[2020-11-26 12:22] LABS: Basophils Absolute Auto 0.1 X10*3/uL (0.0-0.2); Basophils Percent Auto 0.7 % (0-2); Eosinophils Absolute Auto 0.2 X10*3/uL (0.0-0.4); Eosinophils Percent Auto 3.1 % (0-4); Hematocrit 39.8 % (37-47); Hemoglobin 12.9 g/dl (12.0-16.0); Imm Gran Abs Auto 0.02 X10*3/uL (0.00-0.03); Imm Gran Pct Auto 0.3 % (0.0-0.4); Lymphocytes Absolute Auto 2.7 X10*3/uL (1.2-4.9); Lymphocytes Percent Auto 39.9 % (20-40); Mean Corpuscular HGB Conc 32.4 g/dl (31.0-35.0); Mean Corpuscular Hemoglobin 31.2 pg (27.0-33.0); Mean Corpuscular Volume 96.1 fL (80-98); Mean Platelet Volume 10.3 fL (9.4-12.3); Monocytes Absolute Auto 0.8 X10*3/uL (0.1-1.2); Monocytes Percent Auto 11.2 % (2-11); Neutrophils Percent Auto 44.8 % (45-73); Platelet Count 244 X10*3/uL (160-400); Red Blood Count 4.14 X10*6/uL (4.20-5.50); Red Cell Distribution Width 13.3 % (11.0-16.0); White Blood Count 6.7 X10*3/uL (4.8-10.8)
[2020-11-26 12:28] LABS: Estimated Average Glucose 128 mg/dL; Hemoglobin A1c % 6.1 %
[2020-11-26 12:46] LABS: Anion Gap 13 (12-20); Blood Urea Nitrogen 11 mg/dL (9-16); Carbon Dioxide 24 mmol/L (22-29); Chloride 108 mmol/L (96-108); Estimated Glomerular Filt Rate > 60; Glucose Fasting 133 mg/dL (60-99); Potassium 4.3 mmol/L (3.3-5.1); Sodium 141 mmol/L (135-145)
== END 2020-11-26 06:55 | disposition home or self-care (01) ==
LOC: HO.HMGCLDS 06:54
PROVIDERS: PCP Family Medicine; Visit Provider Family Medicine
DX: D64.9 Anemia, unspecified (principal); E11.9 Type 2 diabetes mellitus without complications; I10 Essential (primary) hypertension
CPT/HCPCS: 36415; 80051; 82565; 82947; 83036; 84520; 85025

== ENCOUNTER 2020-11-27 08:25 | Outpatient (REF) | payer MEDICARE, OTHER, SELFPAY ==
[2020-11-27 14:45] LABS: Creatinine Urine 53.05 mg/dL; Microalbum/Creatinine Ratio Ur 175.3 ug/mg cr
== END 2020-11-27 08:26 | disposition home or self-care (01) ==
LOC: HO.HMGCLDS 08:25
PROVIDERS: Visit Provider Family Medicine
DX: D64.9 Anemia, unspecified (principal); E11.9 Type 2 diabetes mellitus without complications; I10 Essential (primary) hypertension
CPT/HCPCS: 82043

== ENCOUNTER → 2021-03-01 11:22 | Outpatient (BNVA) | payer MEDICARE, OTHER, SELFPAY | PROVIDERS: PCP Family Medicine; Visit Provider Internal Medicine | DX: J44.9 Chronic obstructive pulmonary disease, unspecified (principal); R05 Cough | CPT/HCPCS: 99212 ==

== ENCOUNTER 2021-05-24 17:09 | Emergency (ER) | payer MEDICARE, OTHER, SELFPAY ==
[2021-05-24 18:32] VITALS: BP 145/80; BP 171/92; PULSE 110; PULSE 98; RESP 18; TEMP 36.2; O2SAT 95; O2SAT 98; BMI 27.2
--- NOTE | 2021-05-24 21:25 | ED.ANIMALBIT ---
HPI - Animal Bite General Chief Complaint: Animal Bite Stated Complaint: dog bite Time Seen by Provider: 05/24/21 21:22 Source: patient Mode of arrival: ambulatory Limitations: no limitations History of Present Illness HPI narrative: 86-year-old female presents to ED for dog bites to right hand. Patient states she was playing with a neighbor's dog with and bit her because she took the toy away from him. Patient states her friend inform her that the dog is up-to-date with all rabies shots. Patient came to the ED to be evaluated. Related Data Home Medications Medication Instructions Recorded Confirmed omega 6-cpg-iwo-fish oil 1,000 mg 1 cap PO DAILY 06/28/20 08/03/20 (120 mg-180 mg) capsule (Fish Oil) rosuvastatin 5 mg tablet 5 mg PO BEDTIME 06/28/20 08/03/20 ascorbic acid (vitamin C) 500 mg 250 mg PO DAILY 07/13/20 08/03/20 tablet aspirin 81 mg tablet,delayed 81 mg PO DAILY 07/13/20 08/03/20 release cholecalciferol (vitamin D3) 125 125 mcg PO DAILY 07/13/20 08/03/20 mcg (5,000 unit) capsule flu vacc (65yr 0.5 ml IM DIRECTED 07/13/20 up)-MF59C(PF) 60 mcg(15 mcgx4)/0.5 mL IM syringe amlodipine 10 mg tablet (Norvasc) 5 mg PO DAILY tab 09/30/20 famotidine 40 mg tablet 40 mg PO BEDTIME 09/30/20 losartan 100 mg tablet 100 mg PO DAILY 09/30/20 metformin 500 mg tablet 500 mg PO DAILY tab 09/30/20 metoprolol succinate 50 mg 50 mg PO DAILY 09/30/20 tablet,extended release 24 hr promethazine 12.5 mg tablet 12.5 mg PO TID PRN 09/30/20 raloxifene 60 mg tablet 50 mg PO DAILY tab 09/30/20 epinephrine 0.3 mg/0.3 mL IM 11/01/20 injection, auto-injector nystatin 100,000 unit/mL oral 5 ml PO TID PRN ml 11/01/20 suspension budesonide-formoterol HFA 160 2 puff INHALATION BID PRN 03/01/21 mcg-4.5 mcg/actuation aerosol inhaler mecobalamin (vitamin B12) 5,000 mcg PO 03/01/21 mcg disintegrating tablet Previous Rx's Medication Instructions Recorded apixaban 5 mg tablet (Eliquis) 5 mg PO BID #60 tab 08/09/20 albuterol sulfate 90 mcg/actuation 2 puff INHALATION Q4-6H PRN 30 09/10/20 aerosol inhaler (ProAir HFA) Days #8.5 g amoxicillin 875 mg-potassium 1 tab PO Q12H 10 Days #19 tab 05/24/21 clavulanate 125 mg tablet (Augmentin) Allergies Allergy/AdvReac Type Severity Reaction Status Date / Time azithromycin [From ZITHROMAX] Allergy Unknown THROAT RASH Verified 05/24/21 18:32 levofloxacin [From LEVAQUIN] Allergy Unknown UNKNOWN Verified 05/24/21 18:32 meperidine [Demerol] Allergy Unknown Palpitation Verified 05/24/21 18:32 s niacin [NIACIN] Allergy Unknown HIVES Verified 05/24/21 18:32 oxycodone [OXYCODONE] Allergy Unknown UNKNOWN Verified 05/24/21 18:32 tramadol [TRAMADOL] Allergy Unknown INCREASED Verified 05/24/21 18:32 BLOOD PRESSURE, NAUSEA morphine AdvReac Severe Unknown Verified 05/24/21 18:32 atorvastatin [From LIPITOR] AdvReac Intermediate ELEVATED Verified 05/24/21 18:32 LFT'S AND MUSCLE ACHES ondansetron AdvReac Unknown PALPITATION Verified 05/24/21 18:32 [From ZOFRAN ( S HYDROCHLORIDE)] Review of Systems Review of Systems: Yes all other systems are reviewed and are negative Constitutional: Constitutional: Reports as per HPI and Reports no additional constitutional complaints Eyes: Eyes: Reports as per HPI and Reports no additional eye complaints ENT: Reports system reviewed and no additional complaints, except as documented and Reports as per HPI Cardiovascular: Cardiovascular: Reports as per HPI and Reports no additional cardiovascular complaints Respiratory: Respiratory: Reports as per HPI and Reports no additional respiratory complaints Gastrointestinal: Gastrointestinal: Reports as per HPI and Reports no additional gastrointestinal complaints Genitourinary: Genitourinary: Reports no additional female genitourinary complaints and Reports as per HPI Musculoskeletal: Musculoskeletal: Reports no additional musculoskeletal complaints, Reports as per HPI and Reports arthralgias (Dog bite to right hand) Neurologic: Reports system reviewed and no additional complaints, except as documented and Reports as per HPI Psychiatric: Psychiatric: Reports no additional psychiatric complaints and Reports as per HPI [facility] Past Medical History Medical History Arthritis Asthma CAD (coronary artery disease) COPD (chronic obstructive pulmonary disease) COPD (chronic obstructive pulmonary disease) Cough Diabetes Diverticulitis DJD (degenerative joint disease) GERD (gastroesophageal reflux disease) High cholesterol Hypertension Surgical History H/O hernia repair H/O kyphoplasty H/O lumpectomy H/O: hysterectomy History of ankle surgery History of appendectomy History of arthroscopy History of bunionectomy History of cholecystectomy History of endometrial ablation Family History Family History Father Heart disease Social History Social History Household Members: None Housing: House Unable to assess alcohol history related to: Unknown Alcohol intake: current Alcohol intake frequency: holidays/special occasions only Advance Directives: No Advance Directives Information Provided: Yes service: No Current occupational status: retired Physical Exam Vital Signs: Vital Signs: Last Vital Signs Temp 97.2 F 05/24/21 18:32 Pulse 110 H 05/24/21 18:32 Resp 18 05/24/21 18:32 BP 171/92 H 05/24/21 18:32 Pulse Ox 95 05/24/21 18:32 Body Mass Index 27.2 Const: General: cooperative, healthy appearing, comfortable, no acute distress, well developed, alert, awake and Physically active Orientation/consciousness: patient oriented x3 HENMT: Head: Yes normal to inspection, Yes No palpable skull fracture present, Yes normocephalic, Yes atraumatic and No abrasion Eyes: General: appearance normal, both eyes and all related structures Neck: Neck: Yes normal visual inspection, Yes full ROM, Yes no lymphadenopathy, Yes no meningeal signs, Yes trachea midline, Yes supple, No anterior neck swelling and No tender Chest: Chest palpation & inspection: normal inspection of the chest and normal palpation of entire chest wall Resp: Effort & Inspection: normal respiratory effort and able to speak in complete sentences Auscultation: clear to auscultation bilaterally Cardio: Jugular venous distension: no JVD Heart sounds: S1 normal heart sound present and S2 normal heart sound present GI: Inspection: Yes normal to inspection and No abdominal wall ecchymosis Palpation (GI): Soft to palpation, not firm, nontender, no guarding and not rigid : General: No CVA tenderness and Yes no CVA tenderness Back/Spine/Pelvis: Back: no CVA tenderness, No CVA tenderness and No back tenderness Skin: General skin exam: no rashes or lesions noted and elasticity normal Neuro: General: patient oriented x3, gait normal, no meningeal signs and CN's II-XI intact bilaterally Cranial nerves: Yes CN's II-XII intact bilaterally Extrem: Other: Fingers and right hand all capillary refills intact. Patient able to move all fingers. Motor/nerves/vessels in the right upper extremity intact General: Yes normal to inspection and Yes full ROM Hand/finger images: 1. Superficial skin tear. No active bleeding 2. Superficial skin tear no active bleeding 3. Superficial skin tear no active bleeding. 4. Mild small puncture wound not actively bleeding. Psych: Appearance: grossly normal, well kempt and not disheveled Course Course Course Narrative: Wound will be cleaned and Steri-Stripped be placed. Reevaluation(s) Reevaluation #1: Wound cleaned by nurse and Steri-Strips placed. Pressure dressing done. Antibiotics and Tdap ordered. Patient states her friend inform her that her dog was up-to-date with rabies vaccination. Time: 21:35 MDM - Animal Bite MDM Narrative Medical decision making narrative: Dog bite Discharge Plan Discharge Clinical Impression: Dog bite Patient Disposition: Home, Self-Care Instructions: Animal Bite (ED) Additional Instructions: You will be discharged with Augmentin to treat dog bite. Return to the ED immediately the swelling, redness, pus discharge, bluish black discoloration of fingers foul odor, fever, chills, inability to move hand/fingers, or any other concerning symptoms. Prescriptions: New amoxicillin-pot clavulanate [Augmentin] 875-125 mg tablet 1 tab PO Q12H 10 Days Qty: 19 RF: 0 No Action albuterol sulfate [ProAir HFA] 90 mcg/actuation HFA aerosol inhaler 2 puff inhalation Q4-6H PRN (Reason: shortness of breath or wheezing) 30 Days Qty: 8.5 RF: 2 Eliquis 5 mg Tablet 5 mg PO BID Qty: 60 RF: 0 rosuvastatin 5 mg tablet 5 mg PO BEDTIME RF: 0 omega 7-noj-gky-fish oil [Fish Oil] 1,000 mg (120 mg-180 mg) Capsule 1 cap PO DAILY RF: 0 metformin 500 mg tablet 500 mg PO DAILY RF: 0 raloxifene 60 mg tablet 50 mg PO DAILY RF: 0 aspirin 81 mg tablet,delayed release (DR/EC) 81 mg PO DAILY RF: 0 ascorbic acid (vitamin C) 500 mg tablet 250 mg PO DAILY RF: 0 cholecalciferol (vitamin D3) 125 mcg (5,000 unit) capsule 125 mcg PO DAILY RF: 0 flu vac 2020 [id number](PF) 60 mcg (15 mcg x 4)/0.5 mL syringe 0.5 ml IM DIRECTED RF: 0 budesonide-formoterol 160-4.5 mcg/actuation HFA aerosol inhaler 2 puff inhalation BID PRNRF: 0 amlodipine [Norvasc] 10 mg tablet 5 mg PO DAILY RF: 0 famotidine 40 mg tablet 40 mg PO BEDTIME RF: 0 losartan 100 mg tablet 100 mg PO DAILY RF: 0 metoprolol succinate 50 mg tablet extended release 24 hr 50 mg PO DAILY RF: 0 promethazine 12.5 mg tablet 12.5 mg PO TID PRNRF: 0 nystatin 100,000 unit/mL suspension 5 ml PO TID PRN (Reason: thrush) RF: 0 epinephrine 0.3 mg/0.3 mL auto-injector IM RF: 0 mecobalamin (vitamin B12) 5,000 mcg tablet,disintegrating PO RF: 0 Interventions: ED Discharge Assessment Last Done: 05/24/21 22:12 Discharge Date/Time: 05/24/21 22:14 Print Language: [place]ican
[2021-05-24] MEDS: Amoxicillin/Potassium Clav 875 MG TABLET PO (21:48)
[2021-05-24] MEDS: Diphth,Pertus(ACell),Tet Adult 0.5 ML SYRINGE IM (21:48)
--- NOTE | 2021-05-24 22:11 | PC.NURSE ---
WOUND FLUSHED AND STERIES APPLIED TO TO DOG BITE SKIN TEAR BY BLANE LIEBERMAN AND DSD APPLIED.
== END 2021-05-24 22:14 | disposition home or self-care (01) ==
PROVIDERS: Emergency Provider Emergency Medicine; PCP Family Medicine
DX: S60.571A Other superficial bite of hand of right hand, initial encounter (principal); W54.0XXA Bitten by dog, initial encounter; Y93.89 Activity, other specified; Y92.9 Unspecified place or not applicable; Y99.9 Unspecified external cause status
CPT/HCPCS: 90471; 90715; 99283; 99284

== ENCOUNTER 2021-07-04 07:02 | Outpatient (REF) | payer MEDICARE, OTHER, SELFPAY ==
[2021-07-04 12:11] LABS: Estimated Average Glucose 131 mg/dL; Hemoglobin A1c % 6.2 %
[2021-07-04 12:20] LABS: Alanine Aminotransferase 10 U/L (0-31); Anion Gap 12 (12-20); Aspartate Amino Transferase 15 U/L (5-31); Blood Urea Nitrogen 12 mg/dL (9-16); Carbon Dioxide 27 mmol/L (22-29); Chloride 107 mmol/L (96-108); Estimated Glomerular Filt Rate > 60; Glucose Fasting 138 mg/dL (60-99); Potassium 4.4 mmol/L (3.3-5.1); Sodium 142 mmol/L (135-145)
== END 2021-07-04 07:03 | disposition home or self-care (01) ==
LOC: HO.HMGCLDS 07:02
PROVIDERS: PCP Family Medicine; Visit Provider Family Medicine
DX: I10 Essential (primary) hypertension (principal); E11.9 Type 2 diabetes mellitus without complications; E78.00 Pure hypercholesterolemia, unspecified; Z79.899 Other long term (current) drug therapy
CPT/HCPCS: 36415; 80051; 82550; 82565; 82947; 83036; 84450; 84460; 84520

== ENCOUNTER 2021-09-29 06:39 | Outpatient (REF) | payer MEDICARE, OTHER, SELFPAY ==
[2021-09-29 11:18] LABS: MANUAL DIFF FLAG NO
[2021-09-29 11:43] LABS: Estimated Average Glucose 126 mg/dL
[2021-09-29 11:46] LABS: Alanine Aminotransferase 9 U/L (0-31); Albumin Level 3.8 g/dL (3.5-5.0); Alkaline Phosphatase 74 U/L (39-117); Anion Gap 11 (12-20); Aspartate Amino Transferase 13 U/L (5-31); Bilirubin Total 1.1 mg/dL (0.0-1.0); Blood Urea Nitrogen 9 mg/dL (9-16); Carbon Dioxide 25 mmol/L (22-29); Chloride 108 mmol/L (96-108); Estimated Glomerular Filt Rate > 60; Glucose Fasting 134 mg/dL (60-99); Potassium 3.8 mmol/L (3.3-5.1); Sodium 140 mmol/L (135-145); Total Protein 6.4 g/dL (6.5-8.0)
[2021-09-29 12:01] LABS: Basophils Absolute Auto 0.1 X10*3/uL (0.0-0.2); Basophils Percent Auto 0.8 % (0-2); Eosinophils Absolute Auto 0.2 X10*3/uL (0.0-0.4); Eosinophils Percent Auto 2.6 % (0-4); Hematocrit 39.5 % (37.0-47.0); Hemoglobin 13.1 g/dl (12.0-16.0); Imm Gran Abs Auto 0.03 X10*3/uL (0.00-0.03); Imm Gran Pct Auto 0.5 % (0.0-0.4); Lymphocytes Absolute Auto 2.4 X10*3/uL (1.2-4.9); Mean Corpuscular HGB Conc 33.2 g/dl (31.0-35.0); Mean Corpuscular Volume 96.3 fL (80.0-98.0); Mean Platelet Volume 10.6 fL (9.4-12.3); Monocytes Absolute Auto 0.6 X10*3/uL (0.1-1.2); Monocytes Percent Auto 9.2 % (2-11); Neutrophils Absolute Auto 3.4 x10*3/uL (2.0-8.3); Neutrophils Percent Auto 50.9 % (45-73); Platelet Count 214 X10*3/uL (160-400); Red Cell Distribution Width 13.3 % (11.0-16.0); White Blood Count 6.7 X10*3/uL (4.8-10.8)
[2021-09-29 12:17] LABS: Free T4 (Free Thyroxine) 1.16 ng/dL (0.71-1.85)
== END 2021-09-29 06:40 | disposition home or self-care (01) ==
LOC: HO.HMGCLDS 06:39
PROVIDERS: PCP Family Medicine; Visit Provider Family Medicine
DX: I10 Essential (primary) hypertension (principal); E11.9 Type 2 diabetes mellitus without complications; E78.00 Pure hypercholesterolemia, unspecified; Z79.899 Other long term (current) drug therapy
CPT/HCPCS: 36415; 80053; 82550; 83036; 84439; 85025

== ENCOUNTER → 2021-10-11 10:51 | Outpatient (BNVA) | payer MEDICARE, OTHER, SELFPAY | PROVIDERS: PCP Family Medicine; Visit Provider Internal Medicine | DX: J44.9 Chronic obstructive pulmonary disease, unspecified (principal) | CPT/HCPCS: 99212 ==

== ENCOUNTER 2022-04-21 07:17 | Outpatient (REF) | payer MEDICARE, OTHER, SELFPAY ==
[2022-04-21 11:37] LABS: Estimated Average Glucose 128 mg/dL; Hemoglobin A1c % 6.1 %
[2022-04-21 11:56] LABS: Alanine Aminotransferase 6 U/L (0-31); Anion Gap 16 (12-20); Aspartate Amino Transferase 13 U/L (5-31); Blood Urea Nitrogen 12 mg/dL (9-16); Carbon Dioxide 24 mmol/L (22-29); Chloride 104 mmol/L (96-108); Estimated Glomerular Filt Rate > 60; Glucose Fasting 139 mg/dL (60-99); Potassium 4.2 mmol/L (3.3-5.1); Sodium 140 mmol/L (135-145)
== END 2022-04-21 07:18 | disposition home or self-care (01) ==
LOC: HO.HMGCLDS 07:17
PROVIDERS: PCP Family Medicine; Visit Provider Family Medicine
DX: I10 Essential (primary) hypertension (principal); E78.00 Pure hypercholesterolemia, unspecified; E11.9 Type 2 diabetes mellitus without complications; Z79.899 Other long term (current) drug therapy
CPT/HCPCS: 36415; 80051; 82550; 82565; 82947; 83036; 84450; 84460; 84520

== ENCOUNTER 2022-10-19 06:36 | Outpatient (REF) | payer MEDICARE, OTHER, SELFPAY ==
[2022-10-19 11:44] LABS: Alanine Aminotransferase 9 U/L (0-31); Anion Gap 14 (12-20); Aspartate Amino Transferase 13 U/L (5-31); Blood Urea Nitrogen 12 mg/dL (9-16); Carbon Dioxide 24 mmol/L (22-29); Chloride 108 mmol/L (96-108); Cholesterol 134 mg/dL; Estimated Glomerular Filt Rate > 60; Glucose Fasting 128 mg/dL (60-99); HDL Cholesterol 47 mg/dL; LDL Cholesterol Calculated 49 mg/dl; Potassium 4.2 mmol/L (3.3-5.1); Sodium 142 mmol/L (135-145); Triglycerides 193 mg/dL
[2022-10-19 11:54] LABS: Estimated Average Glucose 131 mg/dL; Hemoglobin A1c % 6.2 %
== END 2022-10-19 06:37 | disposition home or self-care (01) ==
LOC: HO.HMGCLDS 06:36
PROVIDERS: PCP Family Medicine; Visit Provider Family Medicine
DX: I10 Essential (primary) hypertension (principal); E11.9 Type 2 diabetes mellitus without complications; E78.00 Pure hypercholesterolemia, unspecified; Z79.899 Other long term (current) drug therapy
CPT/HCPCS: 36415; 80051; 80061; 82550; 82565; 82947; 83036; 84450; 84460; 84520

== ENCOUNTER 2023-06-05 07:41 | Outpatient (REF) | payer MEDICARE, OTHER, SELFPAY ==
[2023-06-05 11:37] LABS: Estimated Average Glucose 126 mg/dL
[2023-06-05 12:02] LABS: Alanine Aminotransferase 6 U/L (0-31); Anion Gap 14 (12-20); Aspartate Amino Transferase 12 U/L (5-31); Blood Urea Nitrogen 11 mg/dL (9-16); Carbon Dioxide 22 mmol/L (22-29); Chloride 106 mmol/L (96-108); Estimated Glomerular Filt Rate > 60; Glucose Fasting 155 mg/dL (60-99); Potassium 3.8 mmol/L (3.3-5.1); Sodium 138 mmol/L (135-145)
[2023-06-05 17:41] LABS: Creatinine Urine 182.96 mg/dL
== END 2023-06-05 07:42 | disposition home or self-care (01) ==
LOC: HO.HMGCLDS 07:41
PROVIDERS: PCP Family Medicine; Visit Provider Family Medicine
DX: I10 Essential (primary) hypertension (principal); E11.9 Type 2 diabetes mellitus without complications; E78.00 Pure hypercholesterolemia, unspecified; Z79.899 Other long term (current) drug therapy
CPT/HCPCS: 36415; 80051; 82043; 82550; 82565; 82570; 82947; 83036; 84450; 84460; 84520

== ENCOUNTER 2023-08-24 10:29 | Outpatient (REF) | payer MEDICARE, OTHER, SELFPAY ==
--- NOTE | ~2023-08-24 | XR_ITS ---
EXAMINATION: XR LUMBOSACRAL SPINE CLINICAL INFORMATION: Low back pain. CT abdomen and pelvis of 09/29/2020 demonstrated T11, T12, L1 and L2 vertebral body compression fractures and kyphoplasty changes as well as compression fractures of L3 and L4. COMPARISON: CT abdomen and pelvis of 09/29/2020. TECHNIQUE: 3 views of the lumbosacral spine. FINDINGS: The bones are diffusely demineralized. Redemonstration of vertebral body compression fractures with kyphoplasty changes at T11, T12, L1 and L2. Compression fractures at L3 and L4 again seen. Atherosclerotic aortoiliac calcifications. Advanced facet arthritis in the [id number] lumbar spine. Multilevel degenerative changes in the lumbar spine.. XR/XR lumbar spine 2-3V IMPRESSION: 1. Redemonstration of vertebral body compression fractures with kyphoplasty changes at T11, T12, L1 and L2. Compression fractures at L3 and L4 again seen. 2. Advanced facet arthritis in the [id number]-[id number] lumbar spine.
[2023-08-24 13:12] LABS: MANUAL DIFF FLAG NO
[2023-08-24 13:18] LABS: Basophils Absolute Auto 0.1 X10*3/uL (0.0-0.2); Basophils Percent Auto 0.6 % (0-2); Eosinophils Percent Auto 0.3 % (0-4); Hematocrit 38.3 % (37.0-47.0); Hemoglobin 13.3 g/dl (12.0-16.0); Imm Gran Abs Auto 0.04 X10*3/uL (0.00-0.03); Imm Gran Pct Auto 0.5 % (0.0-0.4); Lymphocytes Absolute Auto 1.4 X10*3/uL (1.2-4.9); Lymphocytes Percent Auto 16.3 % (20-40); Mean Corpuscular HGB Conc 34.7 g/dl (31.0-35.0); Mean Corpuscular Hemoglobin 31.7 pg (27.0-33.0); Mean Corpuscular Volume 91.4 fL (80.0-98.0); Monocytes Absolute Auto 0.8 X10*3/uL (0.1-1.2); Monocytes Percent Auto 9.4 % (2-11); Neutrophils Absolute Auto 6.5 x10*3/uL (2.0-8.3); Neutrophils Percent Auto 72.9 % (45-73); Platelet Count 286 X10*3/uL (160-400); Red Blood Count 4.19 X10*6/uL (4.20-5.50); White Blood Count 8.9 X10*3/uL (4.8-10.8)
== END 2023-08-24 10:30 | disposition home or self-care (01) ==
LOC: HO.HMGCX 10:29
PROVIDERS: PCP Family Medicine; Visit Provider Family Medicine
DX: M54.50 Low back pain, unspecified (principal)
CPT/HCPCS: 36415; 72100; 84439; 85025

== ENCOUNTER 2023-09-06 10:46 | Outpatient (AMB) | payer MEDICARE, OTHER, SELFPAY ==
--- NOTE | 2023-09-06 10:47 | AM.OFFWIN_ITS ---
Intake Vital Signs 09/06/23 10:51 Height 5 ft Weight 112 lb BMI 21.9 BP 110/72 Blood Pressure Location Lt brachial Position Sitting Pulse 100 Pulse Source Pulse Oximeter Temp 97.5 F Temp Source Temporal Artery Scan Pulse Oximetry (%) 98 Oxygen Delivery Method Room Air Intake Visit Reasons: [employer] ?UTI Intake Note: pt is here today for UTI started 5 days Patient Tobacco Use Status: Never used Tobacco Allergies azithromycin [From ZITHROMAX] Allergy (Unknown, Verified 09/06/23 10:48) THROAT RASH levofloxacin [From LEVAQUIN] Allergy (Unknown, Verified 09/06/23 10:48) UNKNOWN meperidine [Demerol] Allergy (Unknown, Verified 09/06/23 10:48) Palpitations niacin [NIACIN] Allergy (Unknown, Verified 09/06/23 10:48) HIVES oxycodone [OXYCODONE] Allergy (Unknown, Verified 09/06/23 10:48) UNKNOWN tramadol [TRAMADOL] Allergy (Unknown, Verified 09/06/23 10:48) INCREASED BLOOD PRESSURE, NAUSEA morphine Adverse Reaction (Severe, Verified 09/06/23 10:48) Unknown atorvastatin [From LIPITOR] Adverse Reaction (Intermediate, Verified 09/06/23 10:48) ELEVATED LFT'S AND MUSCLE ACHES ondansetron [From ZOFRAN ( HYDROCHLORIDE)] Adverse Reaction (Unknown, Verified 09/06/23 10:48) PALPITATIONS Do you need a note to return to daycare/school/sports/work: No HPI HPI Comments History of Present Illness Details 88 y/o female patient who presents to [facility] in clinic with c/o Urinary symptoms. Pt accompanied by daughter who provides the history today. Daughter reports that Pt has been having mild Altered mental status for the past few days and using the bathroom frequently. Daughter worried that Pt might have Kidney infection and wants to have urine tested. Pt unable to provide urine sample in the Office today. COUNT INCLUDES THE [facility] Medical History Arthritis Asthma CAD (coronary artery disease) COPD (chronic obstructive pulmonary disease) COPD (chronic obstructive pulmonary disease) Cough Diabetes Diverticulitis DJD (degenerative joint disease) GERD (gastroesophageal reflux disease) High cholesterol Hypertension Surgical History H/O hernia repair H/O kyphoplasty H/O lumpectomy H/O: hysterectomy History of ankle surgery History of appendectomy History of arthroscopy History of bunionectomy History of cholecystectomy History of endometrial ablation Family History Father Heart disease Social History Household Members: None Housing: House Unable to assess alcohol history related to: Unknown Alcohol intake: current Alcohol intake frequency: holidays/special occasions only Comment: sitter in room Patient Tobacco Use Status: Never used Tobacco service: No Current occupational status: retired Physical Exam Vital Signs: Last Vital Signs Temp 97.5 F 09/06/23 10:51 Pulse 100 09/06/23 10:51 BP 110/72 09/06/23 10:51 Pulse Ox 98 09/06/23 10:51 Oxygen Delivery Method Room Air 09/06/23 10:51 BMI result Body Mass Index 21.9 Const General: comfortable and no acute distress Orientation/consciousness: patient oriented x3 Limitations: ambulation with walker Resp Effort & Inspection: normal respiratory effort and able to speak in complete sentences Auscultation: clear to auscultation bilaterally, no crackles, no rales, no rhonchi and no wheezes Cardio Rate: regular rate Rhythm: regular rhythm Neuro General: patient oriented x3 Psych Speech and movement: Clear speech present Assessment & Plan Assessment & Plan (1) Urinary frequency: Code(s): R35.0 - Frequency of micturition Plan: - Pt unable to provide urine sample - Pt will collect urine sample and bring to office for lab testing. - If symptoms worse, advised to go to ED. Orders: Orders UA CC w/rflx Micro + Cult Today R35.0 - Frequency of micturition Coding Level of Care Code Est Pt Level 3 (14073) Diagnoses Urinary frequency R35.0 Time Spent (min) 10
[2023-09-06 10:51] VITALS: BP 110/72; PULSE 100; TEMP 36.4; O2SAT 98; BMI 21.9
== END 2023-09-06 11:57 | disposition home or self-care (01) ==
PROVIDERS: PCP Family Medicine; Visit Provider Nurse Practitioner Family
DX: R35.0 Frequency of micturition (principal)
CPT/HCPCS: 99213

== ENCOUNTER 2023-09-06 13:15 | Outpatient (REF) | payer MEDICARE, OTHER, SELFPAY ==
[2023-09-06 16:14] LABS: Appearance Urine Turbid; Color Urine Yellow; Glucose Urine UA Negative (Negative); Leukocyte Esterase Urine Large (3+) (Negative); Nitrite Urine Negative (Negative); PH 5.5 (5.0-9.0); Specific Gravity - Urine 1.015 (1.005-1.025); UMIC TRIGGER UACC YES; Urine Blood Large (3+) (Negative); Urine Ketones Negative (Negative); Urine Protein 100 (2+) mg/dL (Neg-Trace)
[2023-09-06 16:24] LABS: Bacteria Urine 4+ (None Seen); RBC Urine >20 /HPF (0-2); Squamous Epithelial Cell Urine 0-2 /HPF (0-2); UACC Culture Trigger YES; WBC Urine >50 /HPF (0-5)
== END 2023-09-06 13:16 | disposition home or self-care (01) ==
LOC: HO.HMGCLNP 13:15
PROVIDERS: Visit Provider Nurse Practitioner Family
DX: R35.0 Frequency of micturition (principal)
CPT/HCPCS: 81001; 87086; 87088; 87186

== ENCOUNTER 2023-09-18 12:02 | Emergency (ER) | payer MEDICARE, OTHER, SELFPAY ==
--- NOTE | 2023-09-18 12:04 | ECG_ITS ---
Test Reason : tachy Blood Pressure : / mmHG Vent. Rate : 131 BPM Atrial Rate : 131 BPM P-R Int : 142 ms QRS Dur : 074 ms QT Int : 308 ms P-R-T Axes : -14 -41 015 degrees QTc Int : 454 ms Sinus tachycardia Left axis deviation Moderate voltage criteria for LVH, may be normal variant ( R in aVL , [place] product ) Septal infarct , age undetermined Abnormal ECG When compared with ECG of 05-AUG-2020 09:46, Premature ventricular complexes are no longer Present Referred By: Anthony Clark Electronically Signed By:Arnulfo Lunsford
[2023-09-18 12:05] VITALS: BP 173/105; PULSE 130; RESP 18; TEMP 36.2; O2SAT 98; BMI 24.2
--- NOTE | 2023-09-18 12:12 | ED_ITS ---
HPI - General Adult General Chief complaint: Arrhythmia/Palpitations Stated complaint: rapid heart beat sent in by pcp Time Seen by Provider: 09/18/23 15:19 Source: patient and family (Daughter, Katt) Mode of arrival: ambulatory Limitations: no limitations History of Present Illness HPI narrative: 88-year-old female with a history coronary disease, COPD, stroke, paroxysmal atrial fibrillation on metoprolol who presents emergency department for evaluation of a rapid heart rate. Information mainly came from the patient's daughter and who is here in the emergency department with her mother. The patient had back pain and urinary tract infection approximately 2 weeks prior and had a follow-up appointment with her PCP today. Patient was noted to have a fast heart rate which persisted and therefore the patient was sent to the emergency department for evaluation. Related Data Home Medications Medication Instructions Recorded Confirmed omega 1-zjw-rts-fish oil 1,000 mg 1 cap PO DAILY 06/28/20 08/03/20 (120 mg-180 mg) capsule (Fish Oil) rosuvastatin 5 mg tablet 5 mg PO BEDTIME 06/28/20 08/03/20 ascorbic acid (vitamin C) 500 mg 250 mg PO DAILY 07/13/20 08/03/20 tablet cholecalciferol (vitamin D3) 125 125 mcg PO DAILY 07/13/20 08/03/20 mcg (5,000 unit) capsule flu vacc (65yr 0.5 ml IM DIRECTED 07/13/20 up)-MF59C(PF) 60 mcg(15 mcgx4)/0.5 mL IM syringe famotidine 40 mg tablet 40 mg PO BEDTIME 09/30/20 losartan 100 mg tablet 100 mg PO DAILY 09/30/20 metformin 500 mg tablet 500 mg PO DAILY 09/30/20 metoprolol succinate 50 mg 50 mg PO DAILY 09/30/20 tablet,extended release 24 hr raloxifene 60 mg tablet 50 mg PO DAILY 09/30/20 epinephrine 0.3 mg/0.3 mL IM allergies 11/01/20 injection, auto-injector mecobalamin (vitamin B12) 5,000 mcg PO 03/01/21 mcg disintegrating tablet lactobacillus combination no.9 4 4,000 mmu cells PO DAILY 10/11/21 billion cell capsule (Adult 50 Plus Probiotic) Previous Rx's Medication Instructions Recorded apixaban 5 mg tablet (Eliquis) 5 mg PO BID #60 tabs 08/09/20 albuterol sulfate 90 mcg/actuation 2 puff inhalation Q4-6H PRN 09/10/20 aerosol inhaler (ProAir HFA) shortness of breath or wheezing 30 days #8.5 grams albuterol sulfate 90 mcg/actuation 2 puff inhalation Q4-6H PRN 10/11/21 aerosol inhaler shortness of breath or wheezing 60 days #8.5 grams fluticasone 250 mcg-salmeterol 50 1 inh inhalation BID #60 ea 10/14/21 mcg/dose blistr powdr for inhalation (Wixela Inhub) cephalexin 500 mg capsule 500 mg PO BID 7 days #14 caps 09/07/23 cefuroxime axetil 250 mg tablet 250 mg PO Q12H 5 days #10 tabs 09/18/23 Allergies Allergy/AdvReac Type Severity Reaction Status Date / Time azithromycin [From ZITHROMAX] Allergy Unknown THROAT RASH Verified 09/06/23 10:48 levofloxacin [From LEVAQUIN] Allergy Unknown UNKNOWN Verified 09/06/23 10:48 meperidine [Demerol] Allergy Unknown Palpitation Verified 09/06/23 10:48 s niacin [NIACIN] Allergy Unknown HIVES Verified 09/06/23 10:48 oxycodone [OXYCODONE] Allergy Unknown UNKNOWN Verified 09/06/23 10:48 tramadol [TRAMADOL] Allergy Unknown INCREASED Verified 09/06/23 10:48 BLOOD PRESSURE, NAUSEA morphine AdvReac Severe Unknown Verified 09/06/23 10:48 atorvastatin [From LIPITOR] AdvReac Intermediate ELEVATED Verified 09/06/23 10:48 LFT'S AND MUSCLE ACHES ondansetron AdvReac Unknown PALPITATION Verified 09/06/23 10:48 [From ZOFRAN ( S HYDROCHLORIDE)] [facility] Past Medical History Medical History Arthritis Asthma CAD (coronary artery disease) COPD (chronic obstructive pulmonary disease) COPD (chronic obstructive pulmonary disease) Cough Diabetes Diverticulitis DJD (degenerative joint disease) GERD (gastroesophageal reflux disease) High cholesterol Hypertension Surgical History H/O hernia repair H/O kyphoplasty H/O lumpectomy H/O: hysterectomy History of ankle surgery History of appendectomy History of arthroscopy History of bunionectomy History of cholecystectomy History of endometrial ablation Family History Family History Father Heart disease Social History Social History Household Members: None Housing: House Unable to assess alcohol history related to: Unknown Alcohol intake: current Alcohol intake frequency: holidays/special occasions only Comment: sitter in room Patient Tobacco Use Status: Never used Tobacco Advance Directives: No service: No Current occupational status: retired Physical Exam ED Vital Signs: Vital Signs - 24 hr 09/18/23 17:37 Temperature 97.9 F Pulse Rate 82 Respiratory Rate 16 Blood Pressure 182/93 H Pulse Oximetry 97 Oxygen Delivery Method Room Air BMI result Body Mass Index 24.2 Course Course Course Narrative: RME: 88 yold female sent from primary care provider for heart rate of 130. Patient denies any chest pain, shortness of breath or dizziness. Patient denied any distress. Repeat EKG and labs ordered. Charge nurse made aware to bring patient to the ED. Medications Administered Discontinued Medications Generic Name Dose Route Start Last Admin Trade Name Freq PRN Reason Stop Dose Admin Cefuroxime Axetil 250 mg 09/18/23 17:20 09/18/23 17:35 Cefuroxime Axetil 250 Mg Tablet PO 09/18/23 17:21 250 mg ONCE ONE Administration Medical Decision Making Lab Data 09/18/23 12:23 09/18/23 12:23 Labs: Lab Results 09/18/23 09/18/23 Range/Units 12:23 16:50 WBC 8.1 (4.8-10.8) X10*3/uL RBC 4.14 L (4.20-5.50) X10*6/uL Hgb 13.2 (12.0-16.0) g/dl Hct 38.5 (37.0-47.0) % MCV 93.0 (80.0-98.0) fL MCH 31.9 (27.0-33.0) pg MCHC 34.3 (31.0-35.0) g/dl RDW 13.6 (11.0-16.0) % Plt Count 259 (160-400) X10*3/uL MPV 9.2 L (9.4-12.3) fL Immature Gran % (Auto) 0.5 H (0.0-0.4) % Neut % (Auto) 66.3 (45-73) % Lymph % (Auto) 21.3 (20-40) % [place] % (Auto) 9.8 (2-11) % Eos % (Auto) 1.2 (0-4) % Baso % (Auto) 0.9 (0-2) % Lymph # (Auto) 1.7 (1.2-4.9) X10*3/uL [place] # (Auto) 0.8 (0.1-1.2) X10*3/uL Eos # (Auto) 0.1 (0.0-0.4) X10*3/uL Baso # (Auto) 0.1 (0.0-0.2) X10*3/uL Abs Immat Gran (auto) 0.04 H (0.00-0.03) X10*3/uL Absolute Neuts (auto) 5.4 (2.0-8.3) x10*3/uL Absolute Nucleated RBC 0.000 (0.0-0.012) X10*3/uL Nucleated RBC % (auto) 0.0 (0.0-0.2) /100WBC PT 21.9 H (11.1-13.3) SEC INR 1.8 H (0.9-1.1) APTT 36.2 (26.0-36.8) SEC Sodium 142 (135-145) mmol/L Potassium 3.8 (3.3-5.1) mmol/L Chloride 106 (96-108) mmol/L Carbon Dioxide 24 (22-29) mmol/L Anion Gap 16 (12-20) BUN 9 (9-16) mg/dL Creatinine 0.71 (0.5-1.4) mg/dL Estim Creat Clear Calc 44.6 Estimated GFR > 60 Random Glucose 110 (60-115) mg/dL Calcium 8.9 (8.4-10.2) mg/dL Total Bilirubin 0.9 (0.0-1.0) mg/dL AST 13 (5-31) U/L ALT 7 (0-31) U/L Alkaline Phosphatase 69 (39-117) U/L Troponin I High Sens 3.0 (<3.5-17.0) ng/L Total Protein 6.8 (6.5-8.0) g/dL Albumin 3.7 (3.5-5.0) g/dL TSH 2.17 (0.32-4.0) uIU/mL Urine Color Yellow Urine Appearance Hazy Urine pH 6.0 (5.0-9.0) Ur Specific Holliday 1.025 (1.005-1.025) Urine Protein 100 (2+) H (Neg-Trace) mg/dL Urine Glucose (UA) Negative (Negative) mg/dL Urine Ketones Trace (Negative) mg/dL Urine Blood Large (3+) H (Negative) Urine Nitrite Positive H (Negative) Ur Leukocyte Esterase Moderate (2+) H (Negative) Urine RBC >20 H (0-2) /HPF Urine WBC >50 H (0-5) /HPF Ur Squamous Epith Cells 3-5 (0-2) /HPF Urine Bacteria 2+ (None Seen) Hyaline Casts 0-2 (0-2) /LPF Influenza Type A (PCR) NEGATIVE (Negative) Influenza Type B (PCR) NEGATIVE (Negative) RSV RNA Qual (PCR) NEGATIVE (Negative) SARS-CoV-2 RNA (RT-PCR) NEGATIVE (Negative) Discharge Plan Discharge Clinical Impression: Sinus tachycardia, Acute UTI Patient Disposition: Home, Self-Care Additional Instructions: Your EKG did reveal a sinus tachycardia with a heart rate of 131 beats per minute (normal is 60-100) and did not reveal atrial fibrillation. You had no concerning symptoms such as chest pain, lightheadedness shortness of breath or getting winded when you are walking. Your laboratory evaluation from the emergency department was normal including a non elevated troponin (marker of heart damage) Continue taking your metoprolol as prescribed by your doctor Follow-up with your doctor in 2 days. Please return to the emergency department if your symptoms get worse or if you develop any symptoms that are concerning to you. Your urine results are concerning for possible urinary tract infection, you have a significant out of white blood cells, red blood cells and bacteria in your urine. I am going to treat you with a class of antibiotics called cephalosporins. Take cefuroxime 250 mg pills, 1 pill every 12 hours for 5 days Your previous urine did grow E coli which was sensitive to cephalosporin. The culture result should come back in 2-3 days, you can check with your doctor to see if you can stop this medication or if you have to complete the 5 day course. Prescriptions: New cefuroxime axetil 250 mg tablet 250 mg PO Q12H 5 Days Qty: 10 0RF No Action albuterol sulfate [ProAir HFA] 90 mcg/actuation HFA aerosol inhaler 2 puff inhalation Q4-6H PRN (Reason: shortness of breath or wheezing) 30 Days Qty: 8.5 2RF fluticasone propion-salmeterol [Wixela Inhub] 250-50 mcg/dose blister with device 1 inh inhalation BID Qty: 60 0RF cephalexin 500 mg capsule 500 mg PO BID 7 Days Qty: 14 0RF Eliquis 5 mg Tablet 5 mg PO BID Qty: 60 0RF rosuvastatin 5 mg tablet 5 mg PO BEDTIME omega 1-dbf-iug-fish oil [Fish Oil] 1,000 mg (120 mg-180 mg) Capsule 1 cap PO DAILY metformin 500 mg tablet 500 mg PO DAILY raloxifene 60 mg tablet 50 mg PO DAILY ascorbic acid (vitamin C) 500 mg tablet 250 mg PO DAILY cholecalciferol (vitamin D3) 125 mcg (5,000 unit) capsule 125 mcg PO DAILY flu vac 2020 [id number](PF) 60 mcg (15 mcg x 4)/0.5 mL syringe 0.5 ml IM DIRECTED famotidine 40 mg tablet 40 mg PO BEDTIME losartan 100 mg tablet 100 mg PO DAILY metoprolol succinate 50 mg tablet extended release 24 hr 50 mg PO DAILY epinephrine 0.3 mg/0.3 mL auto-injector IM mecobalamin (vitamin B12) 5,000 mcg tablet,disintegrating PO Adult 50 Plus Probiotic 4 billion cell capsule 4,000 mmu cells PO DAILY Rx Instructions: administer with a meal albuterol sulfate 90 mcg/actuation HFA aerosol inhaler 2 puff inhalation Q4-6H PRN (Reason: shortness of breath or wheezing) 60 Days Qty: 8.5 2RF Discharge Date/Time: 09/18/23 17:58
[2023-09-18 12:31] LABS: MANUAL DIFF FLAG NO
[2023-09-18 12:33] LABS: Basophils Absolute Auto 0.1 X10*3/uL (0.0-0.2); Basophils Percent Auto 0.9 % (0-2); Eosinophils Absolute Auto 0.1 X10*3/uL (0.0-0.4); Eosinophils Percent Auto 1.2 % (0-4); Hematocrit 38.5 % (37.0-47.0); Hemoglobin 13.2 g/dl (12.0-16.0); Imm Gran Abs Auto 0.04 X10*3/uL (0.00-0.03); Imm Gran Pct Auto 0.5 % (0.0-0.4); Lymphocytes Absolute Auto 1.7 X10*3/uL (1.2-4.9); Lymphocytes Percent Auto 21.3 % (20-40); Mean Corpuscular HGB Conc 34.3 g/dl (31.0-35.0); Mean Corpuscular Hemoglobin 31.9 pg (27.0-33.0); Mean Platelet Volume 9.2 fL (9.4-12.3); Monocytes Absolute Auto 0.8 X10*3/uL (0.1-1.2); Monocytes Percent Auto 9.8 % (2-11); Neutrophils Absolute Auto 5.4 x10*3/uL (2.0-8.3); Neutrophils Percent Auto 66.3 % (45-73); Platelet Count 259 X10*3/uL (160-400); Red Blood Count 4.14 X10*6/uL (4.20-5.50); Red Cell Distribution Width 13.6 % (11.0-16.0); White Blood Count 8.1 X10*3/uL (4.8-10.8)
[2023-09-18 12:37] LABS: INTERNATIONAL NORM RATIO 1.8 (0.9-1.1); Prothrombin Time 21.9 SEC (11.1-13.3)
[2023-09-18 12:39] LABS: Partial Thromboplastin Time 36.2 SEC (26.0-36.8)
[2023-09-18 12:54] LABS: Alanine Aminotransferase 7 U/L (0-31); Albumin Level 3.7 g/dL (3.5-5.0); Alkaline Phosphatase 69 U/L (39-117); Anion Gap 16 (12-20); Aspartate Amino Transferase 13 U/L (5-31); Bilirubin Total 0.9 mg/dL (0.0-1.0); Blood Urea Nitrogen 9 mg/dL (9-16); Calcium 8.9 mg/dL (8.4-10.2); Carbon Dioxide 24 mmol/L (22-29); Chloride 106 mmol/L (96-108); Creatinine Clr Calc Pharmacy 44.6; Estimated Glomerular Filt Rate > 60; Glucose Random 110 mg/dL (60-115); Potassium 3.8 mmol/L (3.3-5.1); Sodium 142 mmol/L (135-145); Total Protein 6.8 g/dL (6.5-8.0)
[2023-09-18 13:09] LABS: Influenza A PCR NEGATIVE (Negative); Influenza B PCR NEGATIVE (Negative); Resp Syncy Virus RNA Qual PCR NEGATIVE (Negative); SARS COV2 PCR INHOUSE NEGATIVE (Negative); TSH reflex Free T4 2.17 uIU/mL (0.32-4.0)
[2023-09-18 16:56] LABS: Appearance Urine Hazy; Color Urine Yellow; Glucose Urine UA Negative (Negative); Leukocyte Esterase Urine Moderate (2+) (Negative); Nitrite Urine Positive (Negative); Specific Gravity - Urine 1.025 (1.005-1.025); UMIC TRIGGER UACC YES; Urine Blood Large (3+) (Negative); Urine Ketones Trace mg/dL (Negative); Urine Protein 100 (2+) mg/dL (Neg-Trace)
[2023-09-18 17:04] LABS: Bacteria Urine 2+ (None Seen); Hyaline Casts Urine 0-2 /LPF (0-2); RBC Urine >20 /HPF (0-2); UACC Culture Trigger YES; WBC Urine >50 /HPF (0-5)
[2023-09-18] MEDS: cefuroxime axetiL 250 MG TABLET PO (17:35)
[2023-09-18 17:37] VITALS: BP 182/93; PULSE 82; RESP 16; TEMP 36.6; O2SAT 97
== END 2023-09-18 17:58 | disposition home or self-care (01) ==
PROVIDERS: Physician Assistant; Emergency Provider Emergency Medicine Emergency Medical Services; PCP Family Medicine
DX: R00.0 Tachycardia, unspecified (principal); N39.0 Urinary tract infection, site not specified; I49.9 Cardiac arrhythmia, unspecified; I25.10 Atherosclerotic heart disease of native coronary artery without angina pectoris; M54.50 Low back pain, unspecified; E11.9 Type 2 diabetes mellitus without complications; Z11.52 Encounter for screening for COVID-19; Z20.822 Contact with and (suspected) exposure to COVID-19; Z79.84 Long term (current) use of oral hypoglycemic drugs; Z79.899 Other long term (current) drug therapy
CPT/HCPCS: 0241U; 80053; 81001; 84443; 84484; 85025; 85610; 85730; 87086; 87088; 87186; 93005; 99283

== ENCOUNTER → 2023-09-18 12:04 | Outpatient (BNV) | payer MEDICARE, OTHER, SELFPAY | PROVIDERS: Emergency Provider Emergency Medicine Emergency Medical Services; PCP Family Medicine; Visit Provider Internal Medicine Cardiovascular Disease | DX: R00.0 Tachycardia, unspecified (principal); I44.4 Left anterior fascicular block | CPT/HCPCS: 93010 ==

== ENCOUNTER 2023-10-02 19:03 | Outpatient (REF) | payer MEDICARE, OTHER, SELFPAY ==
[2023-10-02 19:16] LABS: Appearance Urine Turbid; Color Urine Yellow; Glucose Urine UA Negative (Negative); Leukocyte Esterase Urine Large (3+) (Negative); Nitrite Urine Negative (Negative); PH 5.5 (5.0-9.0); Specific Gravity - Urine 1.015 (1.005-1.025); UMIC TRIGGER UA YES; Urine Blood Large (3+) (Negative); Urine Ketones Trace mg/dL (Negative); Urine Protein 100 (2+) mg/dL (Neg-Trace)
[2023-10-02 19:35] LABS: Bacteria Urine 4+ (None Seen); Hyaline Casts Urine 0-2 /LPF (0-2); RBC Urine >20 /HPF (0-2); WBC Urine >50 /HPF (0-5)
== END 2023-10-02 19:04 | disposition home or self-care (01) ==
LOC: HO.LNP 19:03
PROVIDERS: Family Medicine; Visit Provider Nurse Practitioner Family
DX: N39.0 Urinary tract infection, site not specified (principal); R35.0 Frequency of micturition
CPT/HCPCS: 81001; 87086; 87088; 87186

== ENCOUNTER 2023-10-22 14:17 | Outpatient (REF) | payer MEDICARE, OTHER, SELFPAY ==
[2023-10-22 14:34] LABS: Appearance Urine Turbid; Color Urine Orange; Glucose Urine UA Negative (Negative); Leukocyte Esterase Urine Large (3+) (Negative); Nitrite Urine Negative (Negative); UMIC TRIGGER UACC YES; Urine Blood Large (3+) (Negative); Urine Ketones Negative (Negative); Urine Protein 100 (2+) mg/dL (Neg-Trace)
[2023-10-22 14:36] LABS: Bacteria Urine 4+ (None Seen); Hyaline Casts Urine 0-2 /LPF (0-2); RBC Urine >20 /HPF (0-2); Squamous Epithelial Cell Urine 0-2 /HPF (0-2); UACC Culture Trigger YES; WBC Urine >50 /HPF (0-5)
== END 2023-10-22 14:18 | disposition home or self-care (01) ==
LOC: HO.LNP 14:17
PROVIDERS: Visit Provider Family Medicine
DX: R30.0 Dysuria (principal)
CPT/HCPCS: 81001; 87086; 87088; 87186

== ENCOUNTER 2023-11-05 15:01 | Outpatient (AMB) | payer MEDICARE, OTHER, SELFPAY ==
--- NOTE | 2023-11-05 15:15 | A.OFFVIS_ITS ---
Intake Visit Reasons: persistent symptomatic UTI Intake Note: NEW Patient presents today to established treatment for Persistence UTI: Meds- None Allergies to Antibiotic- Azithromaxin, Niacin, Levofloxasin Blood Thinner- Eliquis Unable to void PVR 0 mL Center Punch Operator Required: No Accompanied by: Self / Same As Patient Allergies azithromycin [From ZITHROMAX] Allergy (Unknown, Verified 11/05/23 15:25) THROAT RASH levofloxacin [From LEVAQUIN] Allergy (Unknown, Verified 11/05/23 15:25) UNKNOWN meperidine [Demerol] Allergy (Unknown, Verified 11/05/23 15:25) Palpitations niacin [NIACIN] Allergy (Unknown, Verified 11/05/23 15:25) HIVES oxycodone [OXYCODONE] Allergy (Unknown, Verified 11/05/23 15:25) UNKNOWN tramadol [TRAMADOL] Allergy (Unknown, Verified 11/05/23 15:25) INCREASED BLOOD PRESSURE, NAUSEA morphine Adverse Reaction (Severe, Verified 11/05/23 15:25) Unknown atorvastatin [From LIPITOR] Adverse Reaction (Intermediate, Verified 11/05/23 15:25) ELEVATED LFT'S AND MUSCLE ACHES ondansetron [From ZOFRAN ( HYDROCHLORIDE)] Adverse Reaction (Unknown, Verified 11/05/23 15:25) PALPITATIONS Medication List - Last Reconciled 11/05/23 by Kai Steve MD apixaban (Eliquis) 5 mg PO BID ascorbic acid (vitamin C) 250 mg PO DAILY cholecalciferol (vitamin D3) 125 mcg PO DAILY epinephrine IM famotidine 40 mg PO BEDTIME flu vac 2020 [id number](PF) 60 mcg (15 mcg x 4)/0.5 mL 0.5 mL IM DIRECTED fluticasone propion-salmeterol 250-50 mcg/dose (Wixela Inhub) 1 inh inhalation BID lactobacillus combination no.9 (Adult 50 Plus Probiotic) 4,000 mmu cells PO DAILY losartan 100 mg PO DAILY mecobalamin (vitamin B12) mcg PO meloxicam 7.5 mg PO DAILY metformin 500 mg PO DAILY methenamine hippurate 1 g PO BID metoprolol succinate ER 50 mg PO DAILY omega 2-gmu-cyz-fish oil 1,000 mg (120 mg-180 mg) (Fish Oil) 1 cap PO DAILY raloxifene 50 mg PO DAILY rosuvastatin 5 mg PO BEDTIME HPI Comments Details: 11/05/2023--Janeth is an 88-year-old female who is here with her daughter Katt who assists with the HPI. She states that her mother started with UTI symptoms back in August. She was treated with antibiotics 09/07/2023 nitrofurantoin daily for 5 days. September 17 she was treated with cefuroxime 250 mg daily. The patient had a 3rd round of antibiotic starting in t, nitrofurantoin 100 mg twice a day for 7 days that she completed about a week ago. The daughter stated that initially Janeth's urinary symptoms improved but within the last 3-4 days her mother has been more confused and going frequently to the bathroom. I have reviewed urine cultures which were positive for E coli pansensitive. I have discussed that the treatments courses may not have adequately eradicated the bacteriuria given the lower dosage prescribed initially. The patient is unable to give a urine specimen today and bladder scan PVR is 0 mL. Her daughter will bring a urine specimen back to the office this week to be sent for urinalysis and repeat urine culture. In review of chart there is a CT scan from 2020 that notes small bilateral kidney stones. I have discussed re-evaluation of kidneys with CT stone protocol. While awaiting repeat culture. Patient is to resume Hiprex 100 mg twice a day for 7 days she has a jqgd-xhu-zunezrw cranberry supplement and will call the nurse to confirm the dosage and directions of use in any other herbal components of the supplement. Follow-up in [address] imaging completed. [facility] Medical History Cough COPD (chronic obstructive pulmonary disease) DJD (degenerative joint disease) GERD (gastroesophageal reflux disease) COPD (chronic obstructive pulmonary disease) CAD (coronary artery disease) Diverticulitis Arthritis Diabetes Asthma High cholesterol Hypertension Surgical History History of bunionectomy History of endometrial ablation H/O kyphoplasty H/O hernia repair H/O lumpectomy History of ankle surgery History of arthroscopy H/O: hysterectomy History of appendectomy History of cholecystectomy Family History Father Heart disease Social History Household Members: None Housing: House Unable to assess alcohol history related to: Unknown Alcohol intake: current Alcohol intake frequency: holidays/special occasions only Comment: sitter in room Patient Tobacco Use Status: Never used Tobacco service: No Current occupational status: retired Review of Systems Const All systems reviewed & are unremarkable except as noted in HPI and below Reports no additional complaints Eyes Reports no additional complaints ENT Reports no additional complaints Card Reports no additional complaints Resp Reports no additional complaints GI Reports no additional complaints Reports as per HPI Musc Reports no additional complaints Skin/Breast Reports system reviewed and no additional complaints, except as documented Neuro Reports no additional complaints Psych Reports no additional complaints Endo Reports no additional complaints Lemuel/Lymph Reports no additional complaints Aller/Immun Reports no additional complaints Physical Exam Const General: cooperative, healthy appearing and no acute distress Orientation/consciousness: patient oriented x3 HEENT Head: Yes normal to inspection, Yes normocephalic and Yes atraumatic Eyes Conjunctivae: conjunctivae normal Neck Neck: Yes normal visual inspection and Yes trachea midline Chest Chest palpation & inspection: normal inspection of the chest Resp Effort & Inspection: normal respiratory effort Cardio Rate: regular rate GI Inspection: Yes normal to inspection Neuro General: patient oriented x3 Psych Appearance: grossly normal Office Procedures Post Void Residual Post Residual Void Post Void Residual (PVR): 0 [id number] Void Residual by ultrasound Results Reviewed Results Reviewed: Collected: 10/22/23 Status: COMP Req#: [id number] Received: 10/22/23 Source: [facility] Sp Desc: Clean Cat Subm Dr: Jett Christian MD Ordered: Urine Culture Procedure Result Verified Urine Culture Final 10/24/23 Organism 1 Escherichia coli Quant > 100,000 cfu/mL E coli M.I.C. RX --------- --- Ampicillin 8 S Ceftriaxone <=0.25 S Gentamicin <=1 S Levofloxacin <=0.12 S Nitrofurantoin <=16 S Trimethoprim/Sulfamethoxazole <=20 S Collected: 10/02/23 Status: VERA Marin#: [id number] Received: 10/02/23 Source: [facility] Desc: Urine barber Subm Dr: Jett Christian MD Ordered: Urine Culture Procedure Result Verified Urine Culture Final 10/04/23 Organism 1 Escherichia coli Quant > 100,000 cfu/mL E coli M.I.C. RX --------- --- Ampicillin 8 S Ceftriaxone <=0.25 S Gentamicin <=1 S Levofloxacin <=0.12 S Nitrofurantoin <=16 S Trimethoprim/Sulfamethoxazole <=20 S Assessment & Plan Assessment & Plan (1) Bilateral kidney stones: Code(s): N20.0 - Calculus of kidney Category: Medical (2) E. coli UTI: Code(s): N39.0 - Urinary tract infection, site not specified; B96.20 - Unspecified Escherichia coli [E. coli] as the cause of diseases classified elsewhere Category: Medical (3) Bacteriuria: Code(s): R82.71 - Bacteriuria Category: Medical (4) Urinary frequency: Code(s): R35.0 - Frequency of micturition Category: Medical Plan Recurrent UTIs, persistent bacteriuria. Repeat urinalysis and urine culture patient to bring in urine specimen. History of bilateral kidney stones. CT stone protocol Patient has been prescribed Hiprex 1 g twice a day by PCP. We will continue Discussed importance of water hydration. Cranberry supplements. Follow-up in 8 weeks Orders: Orders CT abdomen pelvis wo IV con 11/05/23 N20.0 - Calculus of kidney AMB Post Void Residual by ultrasound 11/05/23 N39.8 - Other specified disorders of urinary system AMB Urinalysis Automated 11/06/23 Z13.9 - Encounter for screening, unspecified Urine Culture 11/06/23 N39.0 - Urinary tract infection, site not specified Patient Instructions: The patient had an opportunity to ask questions regarding treatment plan. The patient expressed understanding and agreement with the above treatment plan. The patient is aware they should contact our office by phone for worsening of their current condition or the appearance of new symptoms. Compliance is encouraged with any medications and followup testing that is ordered. It is a privilege to be allowed the opportunity to participate in the urologic care of your patient. If you have any questions or concerns regarding treatment for the above conditions please do not hesitate to contact me. The office telephone contact is [phone]. This note is constructed in part using voice recognition software. While every effort has been made to ensure accuracy [employer] dean errors may have been included. Yours sincerely, Kai Steve MD Coding Level of Care Code New Pt Level 4 (55692) Diagnoses Bilateral kidney stones N20.0 E. coli UTI N39.0; B96.20 Bacteriuria R82.71 Urinary frequency R35.0 CPT Codes Post Residual Void - PVR CPT Code: 57167-Crel Void Residual by ultrasound ([id number])
== END 2023-11-05 16:18 | disposition home or self-care (01) ==
PROVIDERS: PCP Family Medicine; Visit Provider Urology
DX: N20.0 Calculus of kidney (principal); N39.0 Urinary tract infection, site not specified; B96.20 Unspecified Escherichia coli [E. coli] as the cause of diseases classified elsewhere; R82.71 Bacteriuria; R35.0 Frequency of micturition
CPT/HCPCS: 99204

== ENCOUNTER → 2023-11-05 15:01 | Outpatient (BNVA) | payer MEDICARE, OTHER, SELFPAY | PROVIDERS: PCP Family Medicine; Visit Provider Urology | DX: N20.0 Calculus of kidney (principal); N39.0 Urinary tract infection, site not specified; B96.20 Unspecified Escherichia coli [E. coli] as the cause of diseases classified elsewhere; R82.71 Bacteriuria; R35.0 Frequency of micturition | CPT/HCPCS: 51798; 99202 ==

== ENCOUNTER 2023-11-06 10:56 | Outpatient (REF) | payer MEDICARE, OTHER, SELFPAY | END 2023-11-06 10:57 | disposition home or self-care (01) | LOC: HO.LAB 10:56 | PROVIDERS: Visit Provider Urology | DX: N39.0 Urinary tract infection, site not specified (principal) | CPT/HCPCS: 87086; 87088; 87186 ==

== ENCOUNTER → 2023-11-06 10:56 | Outpatient (BNV) | payer MEDICARE, OTHER, SELFPAY | PROVIDERS: PCP Family Medicine; Visit Provider Urology | DX: Z13.9 Encounter for screening, unspecified (principal) | CPT/HCPCS: 81003 ==

== ENCOUNTER 2023-12-06 07:38 | Outpatient (REF) | payer MEDICARE, OTHER, SELFPAY ==
[2023-12-06 10:47] LABS: Glucose Fasting 146 mg/dL (60-99)
[2023-12-06 10:48] LABS: Estimated Average Glucose 128 mg/dL; Hemoglobin A1c % 6.1 % (<6.0)
== END 2023-12-06 07:39 | disposition home or self-care (01) ==
LOC: HO.HMGCLDS 07:38
PROVIDERS: PCP Family Medicine; Visit Provider Family Medicine
DX: E11.9 Type 2 diabetes mellitus without complications (principal)
CPT/HCPCS: 36415; 82947; 83036

== ENCOUNTER 2023-12-17 16:29 | Outpatient (REF) | payer MEDICARE, OTHER, SELFPAY ==
--- NOTE | ~2023-12-17 | CT_ITS ---
EXAMINATION: CT ABDOMEN AND PELVIS WITHOUT CONTRAST CLINICAL INFORMATION: Calculus of kidney. COMPARISON: CT abdomen and pelvis 09/29/2020. TECHNIQUE: Multidetector volumetric imaging was performed from the superior aspect of the liver through the pubic symphysis. Sagittal and coronal reformatted images were obtained on the technologist's workstation. This CT examination was performed using dose optimization techniques as appropriate, variously including the following: *Automated exposure control *Adjustment of mA and/or kV according to patient size (this includes techniques or standardized protocols for targeted exams where dose is matched to indication/reason for exam; i.e. extremities or head) *Use of iterative reconstruction technique DLP: 352 mGy-cm FINDINGS: LUNG BASES: New incompletely visualized 1.2 x 1.0 cm spiculated and lobulated pulmonary nodule right lower lobe series 4 image 1. New 10 mm cardiophrenic lymph node. LIVER, GALLBLADDER, AND BILIARY TREE: New 5.9 x 4.4 x 4.2 cm mass in segment 7. 0.4 x 6.2 x 6.9 cm mass in segment 5/6, likely a cluster of smaller masses. New perihepatic ascites. No biliary ductal dilatation. Suspect cholecystectomy. PANCREAS: No pancreatic mass or ductal dilatation. SPLEEN: Unremarkable. ADRENAL GLANDS: No adrenal mass. KIDNEYS AND URETERS: 1.9 cm hyperdense parapelvic cyst in the upper right kidney. Punctate nonobstructing calculi in the mid right kidney and lower right kidney. Previously seen right ureteral calculus has resolved. Enlarging calculus in the left renal pelvis measuring 10 x 6 mm, previously closer to 4 mm. There is new inflammatory change around the left renal pelvis. Enlarging calculi in the lower pole of the left kidney measuring 0.7 and 0.4 cm, previously only one calculus measuring 5 mm. BLADDER: Decompressed and poorly evaluated. GASTROINTESTINAL TRACT: Small and large bowel are normal in caliber. There is diverticulosis of the large bowel. A large left hemipelvic mass measures 7.7 x 6.0 x 13.4 cm extrinsically compresses the mid sigmoid colon and may invade the surface but does not appear to be causing obstruction. There is carcinomatosis with numerous omental masses and mesenteric disease.. ABDOMINAL WALL: No significant hernia is appreciated. LYMPH NODES: Left inguinal lymph node measuring 2.1 x 1.6 cm. VASCULAR: No aortic aneurysm. Diffuse aortoiliac atherosclerosis. PELVIC VISCERA: Suspect hysterectomy. The large pelvic mass described above is in the region of the left adnexum and may involve the vaginal fornix. Exact etiology unclear. OSSEOUS STRUCTURES: Multiple thoracolumbar compression fractures. T11, T12, L1 common and L2 have been treated with vertebral augmentation. L3 and L4 have not been treated. They appear stable compared to prior. Right femoral nail. CT/CT abdomen pelvis wo IV con IMPRESSION: New carcinomatosis and hepatic metastatic disease. Dominant mass located along the left pelvic sidewall and involves the left vaginal fornix. 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 New 1.2 x 1.0 cm spiculated and lobulated pulmonary nodule is incompletely evaluated. This is suspicious for pulmonary metastatic disease. Chest CT is recommended. Bilateral nephrolithiasis. The stone in the left renal pelvis is increased in size and there is inflammatory stranding around this stone. No significant hydronephrosis is seen.
== END 2023-12-17 16:30 | disposition home or self-care (01) ==
LOC: HO.CT 16:29
PROVIDERS: PCP Family Medicine; Visit Provider Urology
DX: N20.0 Calculus of kidney (principal)
CPT/HCPCS: 74176

== ENCOUNTER 2023-12-31 11:45 | Outpatient (AMB) | payer MEDICARE, OTHER, SELFPAY ==
--- NOTE | 2023-12-31 11:50 | A.OFFVIS_ITS ---
Intake Visit Reasons: 8w [address] up CT Intake Note: Patient is present for 8w f/u and CT Urology Medication:sulfamethoxazole-trimethoprim,methanamine hippurate Antibiotic Allergy:azithromaxin,niacin,levofloxasin Blood Thinner:eliquis today's PVR:0ML'S Desktop Specialist Required: No Allergies azithromycin [From ZITHROMAX] Allergy (Unknown, Verified 12/31/23 11:52) THROAT RASH levofloxacin [From LEVAQUIN] Allergy (Unknown, Verified 12/31/23 11:52) UNKNOWN meperidine [Demerol] Allergy (Unknown, Verified 12/31/23 11:52) Palpitations niacin [NIACIN] Allergy (Unknown, Verified 12/31/23 11:52) HIVES oxycodone [OXYCODONE] Allergy (Unknown, Verified 12/31/23 11:52) UNKNOWN tramadol [TRAMADOL] Allergy (Unknown, Verified 12/31/23 11:52) INCREASED BLOOD PRESSURE, NAUSEA morphine Adverse Reaction (Severe, Verified 12/31/23 11:52) Unknown atorvastatin [From LIPITOR] Adverse Reaction (Intermediate, Verified 12/31/23 11:52) ELEVATED LFT'S AND MUSCLE ACHES ondansetron [From ZOFRAN ( HYDROCHLORIDE)] Adverse Reaction (Unknown, Verified 12/31/23 11:52) PALPITATIONS Medication List - Last Reconciled 12/31/23 by Kai Steve MD apixaban (Eliquis) 5 mg PO BID ascorbic acid (vitamin C) 250 mg PO DAILY cholecalciferol (vitamin D3) 125 mcg PO DAILY epinephrine IM famotidine 40 mg PO BEDTIME flu vac 2020 [id number](PF) 60 mcg (15 mcg x 4)/0.5 mL 0.5 mL IM DIRECTED fluticasone propion-salmeterol 250-50 mcg/dose (Wixela Inhub) 1 inh inhalation BID lactobacillus combination no.9 (Adult 50 Plus Probiotic) 4,000 mmu cells PO DAILY losartan 100 mg PO DAILY mecobalamin (vitamin B12) mcg PO meloxicam 7.5 mg PO DAILY metformin 500 mg PO DAILY methenamine hippurate 1 g PO BID metoprolol succinate ER 50 mg PO DAILY omega 4-xah-mwy-fish oil 1,000 mg (120 mg-180 mg) (Fish Oil) 1 cap PO DAILY raloxifene 50 mg PO DAILY rosuvastatin 5 mg PO BEDTIME sulfamethoxazole-trimethoprim 800-160 mg (Bactrim DS) 1 tab PO BID 5 days sulfamethoxazole-trimethoprim 800-160 mg (Bactrim DS) 1 tab PO DAILY 10 days HPI Comments Details: 12/31/23--Janeth is an 85-year-old female who I am following due to kidney stones and recurrent UTIs. At time of visit CT abdomen and pelvis report was not transcribed. I reviewed films with patient and daughter and discussed increase stone burden in left kidney, and discussed risks and benefits regarding treatment vs conservative management. Pt's daughter states that since last round of bactrim Janeth has been much better. CT results were dictated later in the day and phone call to patient's daughter was done to discuss results including pulmonary nodule, liver changes suspicious for metastatic disease and pelvic mass. Discussed referral to oncology and will schedule CT chest. Review of chart: 11/05/2023--Janeth is an 88-year-old female who is here with her daughter Katt who assists with the HPI. She states that her mother started with UTI symptoms back in August. She was treated with antibiotics 09/07/2023 nitrofurantoin daily for 5 days. September 17 she was treated with cefuroxime 250 mg daily. The patient had a 3rd round of antibiotic starting in t, nitrofurantoin 100 mg twice a day for 7 days that she completed about a week ago. The daughter stated that initially Jnaeth's urinary symptoms improved but within the last 3-4 days her mother has been more confused and going frequently to the bathroom. I have reviewed urine cultures which were positive for E coli pansensitive. I have discussed that the treatments courses may not have adequately eradicated the bacteriuria given the lower dosage prescribed initially. The patient is unable to give a urine specimen today and bladder scan PVR is 0 mL. Her daughter will bring a urine specimen back to the office this week to be sent for urinalysis and repeat urine culture. In review of chart there is a CT scan from 2020 that notes small bilateral kidney stones. I have discussed re-evaluation of kidneys with CT stone protocol. While awaiting repeat culture. Patient is to resume Hiprex 100 mg twice a day for 7 days she has a [id number] cranberry supplement and will call the nurse to confirm the dosage and directions of use in any other herbal components of the supplement. Follow-up in [address] imaging completed. PFSH Medical History Cough COPD (chronic obstructive pulmonary disease) DJD (degenerative joint disease) GERD (gastroesophageal reflux disease) COPD (chronic obstructive pulmonary disease) CAD (coronary artery disease) Diverticulitis Arthritis Diabetes Asthma High cholesterol Hypertension Surgical History History of bunionectomy History of endometrial ablation H/O kyphoplasty H/O hernia repair H/O lumpectomy History of ankle surgery History of arthroscopy H/O: hysterectomy History of appendectomy History of cholecystectomy Family History Father Heart disease Social History Household Members: None Housing: House Unable to assess alcohol history related to: Unknown Alcohol intake: current Alcohol intake frequency: holidays/special occasions only Comment: sitter in room Patient Tobacco Use Status: Never used Tobacco service: No Current occupational status: retired Review of Systems Const All systems reviewed & are unremarkable except as noted in HPI and below Reports no additional complaints Eyes Reports no additional complaints ENT Reports no additional complaints Card Reports no additional complaints Resp Reports no additional complaints GI Reports no additional complaints Reports as per HPI Musc Reports no additional complaints Skin/Breast Reports system reviewed and no additional complaints, except as documented Neuro Reports no additional complaints Psych Reports no additional complaints Endo Reports no additional complaints Lemuel/Lymph Reports no additional complaints Aller/Immun Reports no additional complaints Results Reviewed Results Reviewed: Date of Service: 12/17/23 EXAMINATION: CT ABDOMEN AND PELVIS WITHOUT CONTRAST CLINICAL INFORMATION: Calculus of kidney. COMPARISON: CT abdomen and pelvis 09/29/2020. TECHNIQUE: Multidetector volumetric imaging was performed from the superior aspect of the liver through the pubic symphysis. Sagittal and coronal reformatted images were obtained on the technologist's workstation. This CT examination was performed using dose optimization techniques as appropriate, variously including the following: *Automated exposure control *Adjustment of mA and/or kV according to patient size (this includes techniques or standardized protocols for targeted exams where dose is matched to indication/reason for exam; i.e. extremities or head) *Use of iterative reconstruction technique DLP: 352 mGy-cm FINDINGS: LUNG BASES: New incompletely visualized 1.2 x 1.0 cm spiculated and lobulated pulmonary nodule right lower lobe series 4 image 1. New 10 mm cardiophrenic lymph node. LIVER, GALLBLADDER, AND BILIARY TREE: New 5.9 x 4.4 x 4.2 cm mass in segment 7. 0.4 x 6.2 x 6.9 cm mass in segment 5/6, likely a cluster of smaller masses. New perihepatic ascites. No biliary ductal dilatation. Suspect cholecystectomy. PANCREAS: No pancreatic mass or ductal dilatation. SPLEEN: Unremarkable. ADRENAL GLANDS: No adrenal mass. KIDNEYS AND URETERS: 1.9 cm hyperdense parapelvic cyst in the upper right kidney. Punctate nonobstructing calculi in the mid right kidney and lower right kidney. Previously seen right ureteral calculus has resolved. Enlarging calculus in the left renal pelvis measuring 10 x 6 mm, previously closer to 4 mm. There is new inflammatory change around the left renal pelvis. Enlarging calculi in the lower pole of the left kidney measuring 0.7 and 0.4 cm, previously only one calculus measuring 5 mm. BLADDER: Decompressed and poorly evaluated. GASTROINTESTINAL TRACT: Small and large bowel are normal in caliber. There is diverticulosis of the large bowel. A large left hemipelvic mass measures 7.7 x 6.0 x 13.4 cm extrinsically compresses the mid sigmoid colon and may invade the surface but does not appear to be causing obstruction. There is carcinomatosis with numerous omental masses and mesenteric disease.. ABDOMINAL WALL: No significant hernia is appreciated. LYMPH NODES: Left inguinal lymph node measuring 2.1 x 1.6 cm. VASCULAR: No aortic aneurysm. Diffuse aortoiliac atherosclerosis. PELVIC VISCERA: Suspect hysterectomy. The large pelvic mass described above is in the region of the left adnexum and may involve the vaginal fornix. Exact etiology unclear. OSSEOUS STRUCTURES: Multiple thoracolumbar compression fractures. T11, T12, L1 common and L2 have been treated with vertebral augmentation. L3 and L4 have not been treated. They appear stable compared to prior. Right femoral nail. IMPRESSION: New carcinomatosis and hepatic metastatic disease. Dominant mass located along the left pelvic sidewall and involves the left vaginal fornix. 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 New 1.2 x 1.0 cm spiculated and lobulated pulmonary nodule is incompletely evaluated. This is suspicious for pulmonary metastatic disease. Chest CT is recommended. Bilateral nephrolithiasis. The stone in the left renal pelvis is increased in size and there is inflammatory stranding around this stone. No significant hydronephrosis is seen. Assessment & Plan Assessment & Plan (1) Bilateral kidney stones: Code(s): N20.0 - Calculus of kidney Category: Medical (2) E. coli UTI: Code(s): N39.0 - Urinary tract infection, site not specified; B96.20 - Unspecified Escherichia coli [E. coli] as the cause of diseases classified elsewhere Category: Medical (3) Bacteriuria: Code(s): R82.71 - Bacteriuria Category: Medical (4) Urinary frequency: Code(s): R35.0 - Frequency of micturition Category: Medical (5) Pulmonary nodule 1 cm or greater in diameter: Code(s): R91.1 - Solitary pulmonary nodule Category: Medical Plan Recurrent UTIs, persistent bacteriuria. Cont Hiprex 1 g twice a day bilateral kidney stones. Left nephrolithiasis, stone burden increased. Punctate right renal stones, At this time will monitor conservatively. CT findings also suspicious for metastatic disease with pelvic mass. CT chest and oncology referral. CT findings and plan discussed with patient's daughter. Orders: Orders CT chest wo/w IV con 12/31/23 R91.8 - Other nonspecific abnormal finding of lung field Referrals Hematology & Oncology Referral C78.7 - Secondary malignant neoplasm of liver and intrahepatic bile duct, C80.1 - Malignant (primary) neoplasm, unspecified, R93.429 - Abnormal radiologic findings on diagnostic imaging of unspecified kidney Medications: Discontinued sulfamethoxazole-trimethoprim 800-160 mg (Bactrim DS) Discontinued Reason: Patient Completed Course 1 tab PO BID 5 days 10 tabs 0RF B96.20 - Unspecified Escherichia coli [E. coli] as the cause of diseases classified elsewhere, N39.0 - Urinary tract infection, site not specified sulfamethoxazole-trimethoprim 800-160 mg (Bactrim DS) Discontinued Reason: Patient Completed Course 1 tab PO DAILY 10 days 10 tabs 0RF B96.20 - Unspecified Escherichia coli [E. coli] as the cause of diseases classified elsewhere, N39.0 - Urinary tract infection, site not specified Patient Instructions: It is a privilege to be allowed the opportunity to participate in the urologic care of your patient. If you have any questions or concerns regarding treatment for the above conditions please do not hesitate to contact me. The office telephone contact is [phone]. This note is constructed in part using voice recognition software. While every effort has been made to ensure accuracy application development project manager errors may have been included. Yours sincerely, Kai Steve MD Coding Level of Care Code Est Pt Level 5 (27766) Diagnoses Bilateral kidney stones N20.0 E. coli UTI N39.0; B96.20 Bacteriuria R82.71 Urinary frequency R35.0 Pulmonary nodule 1 cm or greater in diameter R91.1
== END 2023-12-31 12:20 | disposition home or self-care (01) ==
PROVIDERS: PCP Family Medicine; Visit Provider Urology
DX: N20.0 Calculus of kidney (principal); N39.0 Urinary tract infection, site not specified; B96.20 Unspecified Escherichia coli [E. coli] as the cause of diseases classified elsewhere; R82.71 Bacteriuria; R35.0 Frequency of micturition; R91.1 Solitary pulmonary nodule
CPT/HCPCS: 99214

== ENCOUNTER → 2023-12-31 11:45 | Outpatient (BNVA) | payer MEDICARE, OTHER, SELFPAY | PROVIDERS: PCP Family Medicine; Visit Provider Urology | DX: N20.0 Calculus of kidney (principal); N39.0 Urinary tract infection, site not specified; B96.20 Unspecified Escherichia coli [E. coli] as the cause of diseases classified elsewhere; R35.0 Frequency of micturition; R91.1 Solitary pulmonary nodule | CPT/HCPCS: 99212 ==

== ENCOUNTER 2024-01-01 11:29 | Outpatient (REF) | payer MEDICARE, OTHER, SELFPAY ==
[2024-01-01 13:09] LABS: MANUAL DIFF FLAG NO
[2024-01-01 13:22] LABS: Basophils Absolute Auto 0.1 X10*3/uL (0.0-0.2); Basophils Percent Auto 0.6 % (0-2); Eosinophils Percent Auto 0.5 % (0-4); Hemoglobin 12.5 g/dl (12.0-16.0); Imm Gran Abs Auto 0.03 X10*3/uL (0.00-0.03); Imm Gran Pct Auto 0.4 % (0.0-0.4); Lymphocytes Absolute Auto 1.1 X10*3/uL (1.2-4.9); Lymphocytes Percent Auto 14.2 % (20-40); Mean Corpuscular HGB Conc 34.7 g/dl (31.0-35.0); Mean Corpuscular Hemoglobin 32.2 pg (27.0-33.0); Mean Corpuscular Volume 92.8 fL (80.0-98.0); Mean Platelet Volume 9.1 fL (9.4-12.3); Monocytes Absolute Auto 0.7 X10*3/uL (0.1-1.2); Monocytes Percent Auto 9.5 % (2-11); Neutrophils Absolute Auto 5.8 x10*3/uL (2.0-8.3); Neutrophils Percent Auto 74.8 % (45-73); Platelet Count 332 X10*3/uL (160-400); Red Blood Count 3.88 X10*6/uL (4.20-5.50); Red Cell Distribution Width 13.6 % (11.0-16.0); White Blood Count 7.8 X10*3/uL (4.8-10.8)
[2024-01-01 13:31] LABS: Alanine Aminotransferase 8 U/L (0-31); Albumin Level 3.8 g/dL (3.5-5.0); Alkaline Phosphatase 76 U/L (39-117); Anion Gap 13 (12-20); Aspartate Amino Transferase 16 U/L (5-31); Bilirubin Total 0.7 mg/dL (0.0-1.0); Blood Urea Nitrogen 22 mg/dL (9-16); Calcium 9.2 mg/dL (8.4-10.2); Carbon Dioxide 24 mmol/L (22-29); Chloride 101 mmol/L (96-108); Estimated Glomerular Filt Rate > 60; Glucose Random 115 mg/dL (60-115); Potassium 4.2 mmol/L (3.3-5.1); Sodium 134 mmol/L (135-145); Total Protein 6.8 g/dL (6.5-8.0)
[2024-01-03 11:14] LABS: CA-125 2169 U/mL (<35)
== END 2024-01-01 11:30 | disposition home or self-care (01) ==
LOC: HO.10HDL 11:29
PROVIDERS: Visit Provider Family Medicine
DX: R53.1 Weakness (principal); R19.00 Intra-abdominal and pelvic swelling, mass and lump, unspecified site; R63.4 Abnormal weight loss
CPT/HCPCS: 36415; 80053; 82378; 85025; 86304